=== PATIENT | female | born 1960 | race Caucasian/White ===

== ENCOUNTER 2021-01-01 19:57 | Inpatient (IN) | payer MEDICARE, SELFPAY ==
--- NOTE | ~2021-01-01 | XR_ITS ---
EXAMINATION: XR CHEST CLINICAL INFORMATION: Asthma, wheezing, intermittent shortness of breath. COMPARISON: Chest radiographs 12/21/2008 TECHNIQUE: Frontal view of the chest was obtained. FINDINGS: There is mild subpleural scarring periphery left lower zone with mild tenting lateral diaphragm similar to chest 2009. The lungs are otherwise clear. There is no hyperinflation, airspace consolidation, or effusion. The heart is normal in size. The vascularity is normal. The hilar and mediastinal contours are normal. No acute bony abnormality. XR/XR chest 1V IMPRESSION: No acute intrathoracic disease.
--- NOTE | ~2021-01-01 | CT_ITS ---
EXAMINATION: CT HEAD WITHOUT CONTRAST CLINICAL INFORMATION: Confusion. Prior history TBI COMPARISON: None TECHNIQUE: Contiguous axial imaging was performed from the skull base to vertex without intravenous administration of contrast. Additional 2-D coronal and sagittal reformatted images are generated on the CT workstation and uploaded to PACS. This CT examination was performed using dose optimization techniques as appropriate, variously including the following: *Automated exposure control *Adjustment of mA and/or kV according to patient size (this includes techniques or standardized protocols for targeted exams where dose is matched to indication/reason for exam; i.e. extremities or head) *Use of iterative reconstruction technique DLP: 896 mGy-cm FINDINGS: There is no intracranial hemorrhage, hematoma, or extra-axial fluid collection. The ventricles are normal in size. There is no hydrocephalus, edema, or mass effect. The florez-white matter differentiation appears symmetric. There are some mildly accentuated cortical sulci without focal atrophy. There is no visible acute territorial infarct or mass lesion. The calvarium appears intact. There is no pneumocephalus or orbital emphysema. The visualized sinuses and middle ears and mastoid air cells show no significant mucosal thickening. There are no air-fluid levels. There are some opacified lower left mastoid air cells. No bony destructive process or sclerosis. There are degenerative changes involving both temporomandibular joints. CT/CT head/brain wo con IMPRESSION: No acute intracranial abnormality.
[2021-01-01 20:32] VITALS: BP 123/84; PULSE 96; RESP 18; TEMP 36.6; BMI 41.5
[2021-01-01 21:00] LABS: MANUAL DIFF FLAG NO
[2021-01-01 21:03] LABS: Basophils Percent Auto 0.3 % (0-2); Eosinophils Percent Auto 0.4 % (0-4); Hematocrit 43.1 % (37-47); Hemoglobin 14.5 g/dl (12.0-16.0); Imm Gran Abs Auto 0.02 X10*3/uL (0.00-0.03); Imm Gran Pct Auto 0.2 % (0.0-0.4); Lymphocytes Absolute Auto 1.6 X10*3/uL (1.2-4.9); Lymphocytes Percent Auto 14.6 % (20-40); Mean Corpuscular HGB Conc 33.6 g/dl (31.0-35.0); Mean Corpuscular Hemoglobin 30.5 pg (27.0-33.0); Mean Corpuscular Volume 90.7 fL (80-98); Monocytes Absolute Auto 0.7 X10*3/uL (0.1-1.2); Monocytes Percent Auto 6.3 % (2-11); Neutrophils Absolute Auto 8.5 X10*3/uL (2.0-8.3); Neutrophils Percent Auto 78.2 % (45-73); Platelet Count 194 X10*3/uL (160-400); Red Blood Count 4.75 X10*6/uL (4.20-5.50); White Blood Count 10.8 X10*3/uL (4.8-10.8)
[2021-01-01 21:23] LABS: Anion Gap 14 (12-20); Blood Urea Nitrogen 13 mg/dL (9-16); Calcium 9.2 mg/dL (8.4-10.2); Carbon Dioxide 29 mmol/L (22-29); Chloride 101 mmol/L (96-108); Creatinine Clr Calc Pharmacy 93.8; Estimated Glomerular Filt Rate > 60; Glucose Random 127 mg/dL (60-115); Potassium 3.8 mmol/L (3.3-5.1); Sodium 140 mmol/L (135-145)
--- NOTE | 2021-01-01 21:32 | ED_ITS ---
HPI - Psych General Chief Complaint: Psychiatric Symptoms Stated Complaint: si Time Seen by Provider: 01/01/21 21:29 Source: patient Mode of arrival: ambulatory Limitations: no limitations History of Present Illness HPI Narrative: Patient comes emergency room complaining of suicidal ideation. Patient has no specific plan. Patient states that all her depression/SI is due to being to see her grandchildren. Patient also states that a few days ago, she lashed out at her grandchildren, her daughter told the patient that she does not ever want to see her again. Patient also stressed because she was given a short term notice to move out of her apartment. Patient states she is compliant with her medication for bipolar disorder, PTSD and generalized anxiety. Patient denies any medical problems at this time. Related Data Home Medications Medication Instructions Recorded Confirmed fluoxetine 1 cap PO DAILY 01/01/21 01/01/21 folic acid 1 tab PO DAILY 01/01/21 01/01/21 gabapentin 600 mg PO BEDTIME 01/01/21 01/01/21 glimepiride 1 tab PO QAM 01/01/21 01/01/21 ibuprofen 1 tab PO Q6H PRN 01/01/21 01/01/21 lisinopril 1 tab PO DAILY 01/01/21 01/01/21 omeprazole 1 cap PO DAILY 01/01/21 01/01/21 prazosin 1 cap PO BID 01/01/21 01/01/21 simvastatin 1 tab PO BEDTIME 01/01/21 01/01/21 trazodone 1 tab PO BEDTIME 01/01/21 01/01/21 Allergies Allergy/AdvReac Type Severity Reaction Status Date / Time No Known Allergies Allergy Unverified 04/19/20 16:25 Review of Systems Review of Systems: Constitutional : No Weight loss, No Fever, No Chills, No Night Sweats, No Fatigue, No Malaise ENT/Mouth : No Hearing loss, No Ear Pain, No Nasal Congestion, No Sinus Pain, No Hoarseness, No sore throat, No Rhinorrhea, No Swallowing Difficulty Eyes: No Eye Pain, No Swelling, No Redness, No Foreign Body, No Discharge, No Vision Changes Cardiovascular : No Chest Pain, No SOB, No Dyspnea on Exertion, No Orthopnea, No Edema, No Palpitations Respiratory : No Cough, No Sputum, No Wheezing, No Smoke Exposure, No Dyspnea Gastrointestinal : No Nausea, No Vomiting, No Diarrhea, No Constipation, No abdominal Pain, No Hematochezia, No Melena Genitourinary : no irregular bleeding, No Dysuria, No Urinary Frequency, No Hematuria, No Urinary Incontinence, No Urgency, No Flank Pain, No Urinary Flow Changes, No Hesitancy Musculoskeletal : No joint pain, No Myalgias, No Joint Swelling Skin : No Skin Lesions, No rash Neuro : No Weakness, No Numbness, No Paresthesias, No Loss of Consciousness, No Dizziness, No Headache Psych : No acute anxiety, complaining of depression and suicidal ideation, Nose homicidal ideation Heme/Lymph: No Bruising, No Bleeding,No Lymphadenopathy Endocrine : No Polyuria, No Polydipsia, No Temperature Intolerance [facility] Past Medical History Medical History Anxiety Asthma Depression IBS (irritable bowel syndrome) Marijuana abuse Obesity Suicidal ideation Social History Social History Advance Directives: No Advance Directives Information Provided: Yes Guardian: No Patient : No Physical Exam Vital Signs: Vital Signs: Last Vital Signs Temp 97.8 F 01/01/21 20:32 Pulse 96 01/01/21 20:32 Resp 18 01/01/21 20:32 BP 123/84 01/01/21 20:32 Body Mass Index 41.5 Appearance: Alert. Oriented X3. No acute distress. Eyes: Pupils equal, round and reactive to light. ENT: Pharynx normal. Neck: Normal inspection. Neck supple. No lymph nodes noted. No crepitus CVS: Normal heart rate and rhythm. Respiratory: No respiratory distress. Breath sounds normal. No Wheezing. No rales Abdomen: Soft and nontender. No rigidity. No distention. Skin: Skin warm and dry. Normal skin color. Normal skin turgor. Extremities: No lower extremity edema. No lower extremity edema. No Lacerations. No Rash Neuro: Oriented X 3. No motor deficit. No sensory deficit. Moving all extermities. No slurred speech. Course Course Course Narrative: Patient was evaluated by the care team. Patient is being admitted to Patient is being admitted to in [address] Headley [facility] - Psych Lab Data Result diagrams: 01/01/21 20:56 01/01/21 20:56 Labs: Lab Results 01/01/21 01/01/21 01/01/21 Range/Units 20:56 20:56 20:56 WBC 10.8 (4.8-10.8) X10*3/uL RBC 4.75 (4.20-5.50) X10*6/uL Hgb 14.5 (12.0-16.0) g/dl Hct 43.1 (37-47) % MCV 90.7 (80-98) fL MCH 30.5 (27.0-33.0) pg MCHC 33.6 (31.0-35.0) g/dl RDW 14.0 (11.0-16.0) % Plt Count 194 (160-400) X10*3/uL MPV 10.0 (9.4-12.3) fL Immature Gran % (Auto) 0.2 (0.0-0.4) % Neut % (Auto) 78.2 H (45-73) % Lymph % (Auto) 14.6 L (20-40) % [place] % (Auto) 6.3 (2-11) % Eos % (Auto) 0.4 (0-4) % Baso % (Auto) 0.3 (0-2) % Lymph # (Auto) 1.6 (1.2-4.9) X10*3/uL [place] # (Auto) 0.7 (0.1-1.2) X10*3/uL Eos # (Auto) 0.0 (0.0-0.4) X10*3/uL Baso # (Auto) 0.0 (0.0-0.2) X10*3/uL Abs Immat Gran (auto) 0.02 (0.00-0.03) X10*3/uL Absolute Neuts (auto) 8.5 H (2.0-8.3) X10*3/uL Absolute Nucleated RBC 0.000 (0.0-0.012) X10*3/uL Nucleated RBC % (auto) 0.0 (0.0-0.2) /100WBC Sodium 140 (135-145) mmol/L Potassium 3.8 (3.3-5.1) mmol/L Chloride 101 (96-108) mmol/L Carbon Dioxide 29 (22-29) mmol/L Anion Gap 14 (12-20) BUN 13 (9-16) mg/dL Creatinine 0.79 (0.5-1.4) mg/dL Estim Creat Clear Calc 93.8 Estimated GFR > 60 Random Glucose 127 H (60-115) mg/dL Calcium 9.2 (8.4-10.2) mg/dL COVID-19 (LONG) Negative (Negative) COVID-19 Clin Com See Note Discharge Plan Discharge Clinical Impression: Depression, Bipolar disorder, unspecified Patient Disposition: Admitted As Inpatient
[2021-01-01 21:45] LABS: COVID-19 Test Negative (Negative)
--- NOTE | 2021-01-01 23:49 | PC.NURSE ---
JOSE GUADALUPEN faxed/called/spoke with Josephine/confirmed receipt of referral/ETA in the morning
[2021-01-02] VITALS (8 sets, daily range): BP systolic 104–153; BP diastolic 58–91; PULSE 72–86; RESP 16–18; TEMP 36.1–36.8; O2SAT 95–96; BMI 41.5
--- NOTE | 2021-01-02 | ECG_ITS ---
Test Reason : MED CLEARANCE Blood Pressure : / mmHG Vent. Rate : 072 BPM Atrial Rate : 072 BPM P-R Int : 132 ms QRS Dur : 082 ms QT Int : 392 ms P-R-T Axes : 052 005 037 degrees QTc Int : 429 ms Normal sinus rhythm Normal ECG When compared with ECG of 03-APR-2010 13:37, No significant change was found Referred By: Abiola España Electronically Signed By:Rasheed Selby
[2021-01-02] MEDS: Ibuprofen 800 MG TABLET PO ×2 (00:48→08:49)
[2021-01-02] MEDS: traZODone HCL 100 MG TABLET PO ×2 (00:48→20:59)
[2021-01-02] MEDS: LORazepam 1 MG TABLET 2 MG PO (00:48)
--- NOTE | 2021-01-02 00:52 | PC.NURSE ---
Patient reported anxiety 5/10 and racing thought, patient is fidgety, M5 called and notified that patient will be not transferred soon due to heavy admission, M5ok'ed to have patient medicated, Ativan 2 mg tablet, Ibuprofen 800 mg, and Trazodone 100 mg administered as ordered, pending effect, will continue to monitor.
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
[2021-01-02] MEDS: FLUoxetine HCl 20 MG CAPSULE 40 MG PO (08:12)
[2021-01-02] MEDS: Omeprazole 40 MG CAPSULE.DR PO (08:12)
[2021-01-02] MEDS: Folic Acid 1 MG TABLET PO (08:13)
[2021-01-02] MEDS: Prazosin HCL 1 MG CAPSULE PO ×2 (08:48→20:57)
[2021-01-02] MEDS: lisinopriL 20 MG TABLET PO (08:49)
[2021-01-02 09:03] LABS: Estimated Average Glucose 146 mg/dL; Hemoglobin A1c % 6.7 %
[2021-01-02 09:31] LABS: Cholesterol 168 mg/dL; HDL Cholesterol 49 mg/dL; LDL Cholesterol Calculated 86 mg/dl; Triglycerides 168 mg/dL
[2021-01-02 09:55] LABS: Free T4 (Free Thyroxine) 0.83 ng/dL (0.71-1.85); Thyroid Stimulating Hormone 2.53 uIU/mL (0.32-4.0)
[2021-01-02 10:11] LABS: Folate 17.7 ng/mL (> or = 4.0); Vitamin B12 355 pg/mL (200-900)
[2021-01-02] MEDS: LORazepam 0.5 MG TABLET PO ×2 (14:19→20:58)
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
[2021-01-02] MEDS: Gabapentin 300 MG CAPSULE 600 MG PO (20:57)
[2021-01-02] MEDS: Divalproex Sodium ER 500 MG TAB.ER.24H PO (20:58)
[2021-01-02] MEDS: Atorvastatin Calcium 10 MG TABLET PO (20:58)
[2021-01-02] MEDS: hydrOXYzine HCL 25 MG TABLET PO (21:04)
[2021-01-02 21:21] LABS: Glucose, Whole Blood 173 mg/dL (60-115)
[2021-01-03 06:20] VITALS: BP 132/65; PULSE 70; RESP 18; TEMP 36; O2SAT 94
[2021-01-03 06:42] LABS: Glucose, Whole Blood 142 mg/dL (60-115)
[2021-01-03 09:36] VITALS: BP 130/89; PULSE 84
[2021-01-03] MEDS: Prazosin HCL 1 MG CAPSULE PO ×2 (09:36→20:16)
[2021-01-03 09:37] VITALS: BP 130/89; PULSE 84
[2021-01-03] MEDS: Omeprazole 40 MG CAPSULE.DR PO (09:37)
[2021-01-03] MEDS: lisinopriL 20 MG TABLET PO (09:37)
[2021-01-03] MEDS: Folic Acid 1 MG TABLET PO (09:38)
[2021-01-03] MEDS: FLUoxetine HCl 20 MG CAPSULE 40 MG PO (09:38)
[2021-01-03] MEDS: LORazepam 0.5 MG TABLET PO ×2 (15:01→22:41)
[2021-01-03] MEDS: Acetaminophen 325 MG TABLET 650 MG PO (15:03)
[2021-01-03 16:37] LABS: Glucose, Whole Blood 135 mg/dL (60-115)
[2021-01-03 18:00] VITALS: BP 135/99; PULSE 92; TEMP 36.3
--- NOTE | 2021-01-03 19:18 | HO.PSYCHPN ---
Subjective Subjective Date of Service: 01/03/21 Reason For Visit: Bipolar Disorder; PTSD Subjective Notes: Conditional Voluntary Healthcare Proxy: No Guardianship: No Medical Problems Affecting Mental Status: Yes (?cannabis over use) Interim History: Diagnostics are WNL. Labs, CAT, CXR. Provided literature to pt regarding cognitive effects of cannabis use along with behavioral DBT programming. Pt reports feeling tired after her first dose of Depakote but calmer Medication Compliance: Yes Side effects from medications: Yes (tired) Attending Groups: Yes Review of Systems Review of Systems Yes all other systems are reviewed and are negative Reports behavioral changes and Reports confusion Psychiatric: Reports anxiety, Reports behavioral changes, Reports confusion, Reports depression, Reports difficulty concentrating, Reports hopelessness, Reports irritability, Reports mood swings, Reports panic attacks and Reports suicidal ideation Mental Status Exam Mental Status Exam Patient Appearance: Appropriate Patient Orientation: Person, Place, Time and Situation Level of Consciousness: Alert Patient Behavior: Appropriate, Talkative, Cooperative and Crying Mood Description: Depressed Affect Description: Flat Patient Cognition Impaired: No Ability to Follow Directions: Good Speech Pattern: Clear and Appropriate Memory Description: Episodic Impaired Hallucinations: None Delusions: Not Present Thought Process: Rumination Thought Content: positive for Perseveration and positive for Suicidal Ideation Depressive Symptoms: Increased Anxiety, Diff. Making Decisions, Increased Irritability, Crying Spells, Hopelessness, Isolating-Friends/Family, Feelings of Guilt, Unhappiness, Thoughts of /Suicide, Low Self Esteem, Loss of Energy and Difficulty Concentrating Judgement: Fair Diagnostics Vital Signs (24Hr): Vital Signs - 24 hr 01/02/21 20:57 01/02/21 21:45 01/02/21 23:10 Temperature 98.1 F Pulse Rate 86 86 75 Respiratory Rate Blood Pressure 153/90 H 153/90 H 106/58 L Pulse Oximetry 01/03/21 06:20 01/03/21 09:36 01/03/21 09:37 Temperature 96.8 F Pulse Rate 70 84 84 Respiratory Rate 18 Blood Pressure 132/65 130/89 130/89 Pulse Oximetry 94 Body Mass Index 41.5 Labs Results: 01/01/21 20:56 01/01/21 20:56 Labs: Laboratory Results - last 48 hr 01/01/21 01/01/21 01/01/21 20:56 20:56 20:56 WBC 10.8 RBC 4.75 Hgb 14.5 Hct 43.1 MCV 90.7 MCH 30.5 MCHC 33.6 RDW 14.0 Plt Count 194 MPV 10.0 Immature Gran % (Auto) 0.2 Neut % (Auto) 78.2 H Lymph % (Auto) 14.6 L [place] % (Auto) 6.3 Eos % (Auto) 0.4 Baso % (Auto) 0.3 Lymph # (Auto) 1.6 [place] # (Auto) 0.7 Eos # (Auto) 0.0 Baso # (Auto) 0.0 Abs Immat Gran (auto) 0.02 Absolute Neuts (auto) 8.5 H Absolute Nucleated RBC 0.000 Nucleated RBC % (auto) 0.0 Sodium 140 Potassium 3.8 Chloride 101 Carbon Dioxide 29 Anion Gap 14 BUN 13 Creatinine 0.79 Estim Creat Clear Calc 93.8 Estimated GFR > 60 POC Glucose Random Glucose 127 H Estimat Average Glucose Hemoglobin A1c % Calcium 9.2 Triglycerides Cholesterol LDL Cholesterol, Calc HDL Cholesterol Vitamin B12 Folate TSH Free T4 COVID-19 (LONG) Negative COVID-19 [employer] See Note 01/02/21 01/02/21 01/02/21 08:30 08:30 08:30 WBC RBC Hgb Hct MCV MCH MCHC RDW Plt Count MPV Immature Gran % (Auto) Neut % (Auto) Lymph % (Auto) [place] % (Auto) Eos % (Auto) Baso % (Auto) Lymph # (Auto) [place] # (Auto) Eos # (Auto) Baso # (Auto) Abs Immat Gran (auto) Absolute Neuts (auto) Absolute Nucleated RBC Nucleated RBC % (auto) Sodium Potassium Chloride Carbon Dioxide Anion Gap BUN Creatinine Estim Creat Clear Calc Estimated GFR POC Glucose Random Glucose Estimat Average Glucose 146 Hemoglobin A1c % 6.7 Calcium Triglycerides 168 Cholesterol 168 LDL Cholesterol, Calc 86 HDL Cholesterol 49 Vitamin B12 355 Folate 17.7 TSH 2.53 Free T4 0.83 COVID-19 (LONG) [email or web address] 01/02/21 01/03/21 01/03/21 21:15 06:30 16:33 WBC RBC Hgb Hct MCV MCH MCHC RDW Plt Count MPV Immature Gran % (Auto) Neut % (Auto) Lymph % (Auto) [place] % (Auto) Eos % (Auto) Baso % (Auto) Lymph # (Auto) [place] # (Auto) Eos # (Auto) Baso # (Auto) Abs Immat Gran (auto) Absolute Neuts (auto) Absolute Nucleated RBC Nucleated RBC % (auto) Sodium Potassium Chloride Carbon Dioxide Anion Gap BUN Creatinine Estim Creat Clear Calc Estimated GFR POC Glucose 173 H 142 H 135 H Random Glucose Estimat Average Glucose Hemoglobin A1c % Calcium Triglycerides Cholesterol LDL Cholesterol, Calc HDL Cholesterol Vitamin B12 Folate TSH Free T4 COVID-19 (LONG) COVID-19 Clin Com Imaging Radiology Impressions: ITS Impressions Chest X-Ray 01/03/21 10:00 IMPRESSION: No acute intrathoracic disease. Head CT 01/03/21 14:52 IMPRESSION: No acute intracranial abnormality. Medications Medications Current Medications Generic Name Dose Route Start Last Admin Trade Name Freq PRN Reason Stop Dose Admin Acetaminophen 650 mg 01/01/21 23:35 01/03/21 15:03 Acetaminophen 325 Mg Tablet PO 650 mg Q6H PRN Administration Headache/Pain Mild Scale (1-3) Al Hydroxide/Mg Hydroxide 30 ml 01/01/21 23:35 Magnesium Hydrox/Alum Hydrox 30 Ml Oral.Susp PO Q6H PRN Heartburn/Nausea Atorvastatin Calcium 10 mg 01/02/21 21:00 01/02/21 20:58 Atorvastatin Calcium 10 Mg Tablet PO 10 mg BEDTIME AMY Administration Divalproex Sodium 500 mg 01/02/21 21:00 01/02/21 20:58 Divalproex Sodium Er 500 Mg Tab.Er.24h PO 500 mg BEDTIME AMY Administration Fluoxetine HCl 40 mg 01/02/21 09:00 01/03/21 09:38 Fluoxetine Hcl 20 Mg Capsule PO 40 mg DAILY AMY Administration Folic Acid 1 mg 01/02/21 09:00 01/03/21 09:38 Folic Acid 1 Mg Tablet PO 1 mg DAILY AMY Administration Gabapentin 600 mg 01/02/21 21:00 01/02/21 20:57 Gabapentin 300 Mg Capsule PO 600 mg BEDTIME AMY Administration Glipizide 5 mg 01/04/21 09:00 Glipizide 5 Mg Tablet PO DAILY AMY Hydroxyzine HCl 25 mg 01/01/21 23:35 01/02/21 21:04 Hydroxyzine Hcl 25 Mg Tablet PO 25 mg BEDTIME PRN Administration Anxiety Ibuprofen 800 mg 01/01/21 23:31 01/02/21 08:49 Ibuprofen 800 Mg Tablet PO 800 mg Q6H PRN Administration pain Lisinopril 20 mg 01/02/21 09:00 01/03/21 09:37 Lisinopril 20 Mg Tablet PO 20 mg DAILY AMY Administration Protocol Lorazepam 0.5 mg 01/01/21 23:45 01/03/21 15:01 Lorazepam 0.5 Mg Tablet PO 0.5 mg Q6H PRN Administration Anxiety Magnesium Hydroxide 30 ml 01/01/21 23:35 Milk Of Magnesia 30 Ml Oral.Susp PO DAILY PRN Constipation Omeprazole 40 mg 01/02/21 09:00 01/03/21 09:37 Omeprazole 40 Mg Capsule.Dr PO 40 mg DAILY AMY Administration Prazosin HCl 1 mg 01/02/21 09:00 01/03/21 09:36 Prazosin Hcl 1 Mg Capsule PO 1 mg BID AMY Administration Protocol Trazodone HCl 100 mg 01/02/21 21:00 01/02/21 20:59 Trazodone Hcl 100 Mg Tablet PO 100 mg BEDTIME AMY Administration Allergies Allergies Allergy/AdvReac Type Severity Reaction Status Date / Time No Known Allergies Allergy Unverified 04/19/20 16:25 Assessment & Plan Assessment & Plan (1) Bipolar I disorder: Status: Acute Code(s): F31.9 - Bipolar disorder, unspecified Assessment and Plan: Mirna is a 60 yo female with a history of mood lability, depression and excessive cannabis abuse admitted for exacerbation of depression, lability and emotional dysregulation. She also reports confusion at times and difficulty with task completion. Thus far, medical eval is inconclusive. 1.Continue Depakote ER 500 mg HS 2. CXR WNL 3.Re-establish CPAP 4. CAT WNL (2) Cannabis use disorder, severe, dependence: Status: Acute Code(s): F12.20 - Cannabis dependence, uncomplicated Greater than 50% of the session was spent on counseling and/or coordination of care Reason for contiued inpatient stay Substantial Risk for: harm to self, inability to function and rapid decompensation
[2021-01-03 20:16] VITALS: BP 135/99; PULSE 92
[2021-01-03] MEDS: Atorvastatin Calcium 10 MG TABLET PO (20:16)
[2021-01-03] MEDS: Gabapentin 300 MG CAPSULE 600 MG PO (20:17)
[2021-01-03] MEDS: Divalproex Sodium ER 500 MG TAB.ER.24H PO (20:17)
[2021-01-03] MEDS: traZODone HCL 100 MG TABLET PO (20:17)
[2021-01-04 06:35] VITALS: BP 112/72; PULSE 75; RESP 18; TEMP 36.3; O2SAT 95
[2021-01-04 06:50] LABS: Glucose, Whole Blood 145 mg/dL (60-115)
[2021-01-04 08:30] VITALS: BP 131/77; PULSE 80; RESP 18; TEMP 36.6
[2021-01-04 08:49] VITALS: BP 131/79; PULSE 80
[2021-01-04] MEDS: lisinopriL 20 MG TABLET PO (08:49)
[2021-01-04] MEDS: Omeprazole 40 MG CAPSULE.DR PO (08:49)
[2021-01-04] MEDS: FLUoxetine HCl 20 MG CAPSULE 40 MG PO (08:50)
[2021-01-04 08:51] VITALS: BP 131/79; PULSE 80
[2021-01-04] MEDS: Prazosin HCL 1 MG CAPSULE PO ×2 (08:51→20:15)
[2021-01-04] MEDS: Folic Acid 1 MG TABLET PO (08:52)
[2021-01-04] MEDS: glipiZIDE 5 MG TABLET PO (08:52)
[2021-01-04] MEDS: LORazepam 0.5 MG TABLET PO ×2 (10:15→21:29)
--- NOTE | 2021-01-04 15:54 | HO.PSYCHPN ---
Subjective Subjective Date of Service: 01/04/21 Reason For Visit: Bipolar Disorder; PTSD Subjective Notes: Conditional Voluntary Healthcare Proxy: No Guardianship: No Medical Problems Affecting Mental Status: Yes (Back Pain) Interim History: Difficult day-tearful, angry, +SI, threatening, agitated, refusing to eat. Friend called pt to let her know she attempted contact with family and they want nothing to do with me . Discussed family asking pt to get help and encouraged pt to allow conflicted issues to settle before she attempts to make further contact. Pt discussed stressors-reports she needs assist with housing, application for [place] [employer] as she will be unable to continue to live with her aunt. 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 Pt reports feeling worse since the news of family rejection. Denies medication SE. Medication Compliance: Yes Side effects from medications: No Attending Groups: No Review of Systems Musculoskeletal: Reports back pain (uses Flexoril at home) Reports behavioral changes Psychiatric: Reports anxiety, Reports behavioral changes, Reports depression, Reports difficulty concentrating, Reports hopelessness, Reports irritability, Reports anhedonia, Reports mood swings and Reports suicidal ideation Mental Status Exam Mental Status Exam Patient Appearance: Fatigued and Disheveled Patient Orientation: Person, Place, Time and Situation Level of Consciousness: Awake, Restless and Alert Patient Behavior: Dependent, Talkative, Cooperative, Anxious, Fearful, Combative, Distractible, Good Eye Contact and Crying Mood Description: Withdrawn, Constricted, Fearful, Hostile, Anxious, Labile, Angry, Sad and Apprehensive Affect Description: Labile and Flat Patient Cognition Impaired: No Ability to Follow Directions: Good Speech Pattern: Perseverating, Spontaneous Speech and Soft-Spoken Memory Description: Intact Hallucinations: None Delusions: Not Present Thought Process: Racing, Distracted and Rumination Thought Content: positive for Racing, positive for [place], positive for Obsessional Thoughts, positive for Circumstantial, positive for Perseveration, positive for Preoccupation and positive for Suicidal Ideation Depressive Symptoms: Increased Anxiety, Diff. Making Decisions, Muscle Tension, Increased Irritability, Changes in Appetite, Muscle Pain, Crying Spells, Sleeping More Than Usual, Loss of Int. in Activity, Feelings of Worthlessness, Significant Weight Gain, Hopelessness, Isolating-Friends/Family, Feelings of Guilt, Unhappiness, Increased Fatigue, Thoughts of /Suicide, Low Self Esteem, Loss of Energy, Difficulty Concentrating and Back Pain Abnormal Motor Activity Signs and Symptoms: Agitation and Restlessness Judgement: Fair Diagnostics Vital Signs (24Hr): Vital Signs - 24 hr 01/03/21 18:00 01/03/21 20:16 01/04/21 06:35 Temperature 97.4 F 97.4 F Pulse Rate 92 92 75 Respiratory Rate 18 Blood Pressure 135/99 H 135/99 H 112/72 Pulse Oximetry 95 01/04/21 08:30 01/04/21 08:49 01/04/21 08:51 Temperature 97.9 F Pulse Rate 80 80 80 Respiratory Rate 18 Blood Pressure 131/77 131/79 131/79 Pulse Oximetry Body Mass Index 41.5 Labs Results: 01/01/21 20:56 01/01/21 20:56 Labs: Laboratory Results - last 48 hr 01/02/21 01/03/21 01/03/21 21:15 06:30 16:33 POC Glucose 173 H 142 H 135 H 01/04/21 06:38 POC Glucose 145 H Imaging Radiology Impressions: ITS Impressions Chest X-Ray 01/03/21 10:00 IMPRESSION: No acute intrathoracic disease. Head CT 01/03/21 14:52 IMPRESSION: No acute intracranial abnormality. Medications Medications Current Medications Generic Name Dose Route Start Last Admin Trade Name Freq PRN Reason Stop Dose Admin Acetaminophen 650 mg 01/01/21 23:35 01/03/21 15:03 Acetaminophen 325 Mg Tablet PO 650 mg Q6H PRN Administration Headache/Pain Mild Scale (1-3) Al Hydroxide/Mg Hydroxide 30 ml 01/01/21 23:35 Magnesium Hydrox/Alum Hydrox 30 Ml Oral.Susp PO Q6H PRN Heartburn/Nausea Atorvastatin Calcium 10 mg 01/02/21 21:00 01/03/21 20:16 Atorvastatin Calcium 10 Mg Tablet PO 10 mg BEDTIME AMY Administration Cyclobenzaprine HCl 5 mg 01/04/21 15:52 Cyclobenzaprine Hcl 5 Mg Tablet PO TID PRN Back Pain Divalproex Sodium 500 mg 01/02/21 21:00 01/03/21 20:17 Divalproex Sodium Er 500 Mg Tab.Er.24h PO 500 mg BEDTIME AMY Administration Fluoxetine HCl 40 mg 01/02/21 09:00 01/04/21 08:50 Fluoxetine Hcl 20 Mg Capsule PO 40 mg DAILY AMY Administration Folic Acid 1 mg 01/02/21 09:00 01/04/21 08:52 Folic Acid 1 Mg Tablet PO 1 mg DAILY AMY Administration Gabapentin 600 mg 01/02/21 21:00 01/03/21 20:17 Gabapentin 300 Mg Capsule PO 600 mg BEDTIME AMY Administration Glipizide 5 mg 01/04/21 09:00 01/04/21 08:52 Glipizide 5 Mg Tablet PO 5 mg DAILY AMY Administration Hydroxyzine HCl 25 mg 01/01/21 23:35 01/02/21 21:04 Hydroxyzine Hcl 25 Mg Tablet PO 25 mg BEDTIME PRN Administration Anxiety Ibuprofen 800 mg 01/01/21 23:31 01/02/21 08:49 Ibuprofen 800 Mg Tablet PO 800 mg Q6H PRN Administration pain Lisinopril 20 mg 01/02/21 09:00 01/04/21 08:49 Lisinopril 20 Mg Tablet PO 20 mg DAILY AMY Administration Protocol Lorazepam 0.5 mg 01/01/21 23:45 01/04/21 10:15 Lorazepam 0.5 Mg Tablet PO 0.5 mg Q6H PRN Administration Anxiety Magnesium Hydroxide 30 ml 01/01/21 23:35 Milk Of Magnesia 30 Ml Oral.Susp PO DAILY PRN Constipation Omeprazole 40 mg 01/02/21 09:00 01/04/21 08:49 Omeprazole 40 Mg Capsule.Dr PO 40 mg DAILY AMY Administration Prazosin HCl 1 mg 01/02/21 09:00 01/04/21 08:51 Prazosin Hcl 1 Mg Capsule PO 1 mg BID AMY Administration Protocol Trazodone HCl 100 mg 01/02/21 21:00 01/03/21 20:17 Trazodone Hcl 100 Mg Tablet PO 100 mg BEDTIME AMY Administration Allergies Allergies Allergy/AdvReac Type Severity Reaction Status Date / Time No Known Allergies Allergy Unverified 04/19/20 16:25 Assessment & Plan Assessment & Plan (1) Bipolar I disorder: Status: Acute Code(s): F31.9 - Bipolar disorder, unspecified Assessment and Plan: Mirna is a 60 yo female with a history of mood lability, depression and excessive cannabis abuse admitted for exacerbation of depression, lability and emotional dysregulation. She also reports confusion at times and difficulty with task completion. Thus far, medical eval is WNL. Today, in response to being told by a friend that her family wants nothing to do with me , she has become more labile, threatening suicide, refusing to eat and has taken to her bed. She was able to process some of these feelings today and we were able to target some interventions. Our immediate goal is mood stabilization and suicidality mgt. 1.Continue Depakote ER 500 mg HS. 2. Olanzapine 5 mg HS for mood, sx of dysphoric jasno, racing thoughts mgt. 3. Gabapentin 100 mg tid-trial to assist in withdrawal of cannibis ~45 year hx. 4. [place] 300 mg bid-mgt of intense SI-possibly a component of a borderline personality organization presentation. (2) Cannabis use disorder, severe, dependence: Status: Acute Code(s): F12.20 - Cannabis dependence, uncomplicated Assessment and Plan: Gabapentin 100 mg tid trial. Pt is interested in a 30 day program for assistance in completely stopping cannabis Greater than 50% of the session was spent on counseling and/or coordination of care Reason for contiued inpatient stay Substantial Risk for: harm to self, inability to function and rapid decompensation
[2021-01-04] MEDS: Cyclobenzaprine HCl 5 MG TABLET PO (16:09)
[2021-01-04 16:42] LABS: Glucose, Whole Blood 115 mg/dL (60-115)
[2021-01-04 18:00] VITALS: BP 154/87; PULSE 94; TEMP 36.4
[2021-01-04] MEDS: Atorvastatin Calcium 10 MG TABLET PO (20:14)
[2021-01-04 20:15] VITALS: BP 154/87; PULSE 94
[2021-01-04] MEDS: Divalproex Sodium ER 500 MG TAB.ER.24H PO (20:18)
[2021-01-04] MEDS: OLANZapine 5 MG TABLET PO (20:18)
[2021-01-04] MEDS: Lithium Carbonate 300 MG TABLET PO (20:18)
[2021-01-04] MEDS: traZODone HCL 100 MG TABLET PO (20:18)
[2021-01-04] MEDS: Gabapentin 100 MG CAPSULE PO (20:19)
[2021-01-04] MEDS: Gabapentin 300 MG CAPSULE 600 MG PO (20:19)
[2021-01-05] MEDS: LORazepam 0.5 MG TABLET PO ×2 (14:22→20:46)
[2021-01-05] MEDS: Gabapentin 100 MG CAPSULE PO ×2 (14:22→20:43)
[2021-01-05 16:25] LABS: Glucose, Whole Blood 161 mg/dL (60-115)
[2021-01-05 18:00] VITALS: BP 121/75; PULSE 80; TEMP 36.3
--- NOTE | 2021-01-05 20:27 | HO.PSYCHPN ---
Subjective Subjective Date of Service: 01/05/21 Reason For Visit: Bipolar Disorder; PTSD Subjective Notes: Conditional Voluntary Healthcare Proxy: No Guardianship: No Medical Problems Affecting Mental Status: No Interim History: Subtle improvement, increased participation in milieu, however remains significantly depressed with SI. Medication Compliance: Yes Side effects from medications: Yes (some increase in a.m. sedation) Attending Groups: Intermittent Review of Systems Reports behavioral changes Psychiatric: Reports anxiety, Reports behavioral changes, Reports depression, Reports difficulty concentrating, Reports hopelessness, Reports irritability, Reports mood swings and Reports suicidal ideation Mental Status Exam Mental Status Exam Patient Appearance: Appropriate Patient Orientation: Person, Place, Time and Situation Level of Consciousness: Alert Patient Behavior: Appropriate and Cooperative Mood Description: Labile Affect Description: Labile Patient Cognition Impaired: No Ability to Follow Directions: Good Speech Pattern: Perseverating and Spontaneous Speech Memory Description: Intact Hallucinations: None Delusions: Not Present Thought Process: Intact Thought Content: positive for Intact, positive for Circumstantial and positive for Suicidal Ideation Depressive Symptoms: Increased Anxiety, Diff. Making Decisions, Increased Irritability, Loss of Int. in Activity, Feelings of Worthlessness, Significant Weight Gain, Hopelessness, Isolating-Friends/Family, Unhappiness, Thoughts of /Suicide, Loss of Energy and Difficulty Concentrating Judgement: Fair Diagnostics Vital Signs (24Hr): Body Mass Index 41.5 Labs Results: 01/01/21 20:56 01/01/21 20:56 Labs: Laboratory Results - last 48 hr 01/04/21 01/04/21 01/05/21 06:38 16:31 16:18 POC Glucose 145 H 115 161 H Imaging Radiology Impressions: ITS Impressions Chest X-Ray 01/03/21 10:00 IMPRESSION: No acute intrathoracic disease. Head CT 01/03/21 14:52 IMPRESSION: No acute intracranial abnormality. Medications Medications Current Medications Generic Name Dose Route Start Last Admin Trade Name Freq PRN Reason Stop Dose Admin Acetaminophen 650 mg 01/01/21 23:35 01/03/21 15:03 Acetaminophen 325 Mg Tablet PO 650 mg Q6H PRN Administration Headache/Pain Mild Scale (1-3) Al Hydroxide/Mg Hydroxide 30 ml 01/01/21 23:35 Magnesium Hydrox/Alum Hydrox 30 Ml Oral.Susp PO Q6H PRN Heartburn/Nausea Atorvastatin Calcium 10 mg 01/02/21 21:00 01/04/21 20:14 Atorvastatin Calcium 10 Mg Tablet PO 10 mg BEDTIME AMY Administration Cyclobenzaprine HCl 5 mg 01/04/21 15:52 01/04/21 16:09 Cyclobenzaprine Hcl 5 Mg Tablet PO 5 mg TID PRN Administration Back Pain Divalproex Sodium 500 mg 01/02/21 21:00 01/04/21 20:18 Divalproex Sodium Er 500 Mg Tab.Er.24h PO 500 mg BEDTIME AMY Administration Fluoxetine HCl 40 mg 01/02/21 09:00 01/05/21 09:02 Fluoxetine Hcl 20 Mg Capsule PO Not Given DAILY AMY Folic Acid 1 mg 01/02/21 09:00 01/05/21 09:02 Folic Acid 1 Mg Tablet PO Not Given DAILY AMY Gabapentin 600 mg 01/02/21 21:00 01/04/21 20:19 Gabapentin 300 Mg Capsule PO 600 mg BEDTIME AMY Administration Gabapentin 100 mg 01/04/21 21:00 01/05/21 14:22 Gabapentin 100 Mg Capsule PO 100 mg TID AMY Administration Glipizide 5 mg 01/04/21 09:00 01/05/21 09:03 Glipizide 5 Mg Tablet PO Not Given DAILY AMY Hydroxyzine HCl 25 mg 01/01/21 23:35 01/02/21 21:04 Hydroxyzine Hcl 25 Mg Tablet PO 25 mg BEDTIME PRN Administration Anxiety Ibuprofen 800 mg 01/01/21 23:31 01/02/21 08:49 Ibuprofen 800 Mg Tablet PO 800 mg Q6H PRN Administration pain Lisinopril 20 mg 01/02/21 09:00 01/05/21 09:03 Lisinopril 20 Mg Tablet PO Not Given DAILY AMY Protocol [place] 300 mg 01/04/21 21:00 01/05/21 09:03 [place] 300 Mg Tablet PO Not Given BID AMY Lorazepam 0.5 mg 01/01/21 23:45 01/05/21 14:22 Lorazepam 0.5 Mg Tablet PO 0.5 mg Q6H PRN Administration Anxiety Magnesium Hydroxide 30 ml 01/01/21 23:35 Milk Of Magnesia 30 Ml Oral.Susp PO DAILY PRN Constipation Olanzapine 5 mg 01/04/21 21:00 01/04/21 20:18 Olanzapine 5 Mg Tablet PO 5 mg BEDTIME AMY Administration Omeprazole 40 mg 01/02/21 09:00 01/05/21 09:03 Omeprazole 40 Mg Capsule. PO Not Given DAILY AMY Prazosin HCl 1 mg 01/02/21 09:00 01/05/21 09:03 Prazosin Hcl 1 Mg Capsule PO Not Given BID [facility] Protocol Trazodone HCl 100 mg 01/02/21 21:00 01/04/21 20:18 Trazodone Hcl 100 Mg Tablet PO 100 mg BEDTIME AMY Administration Allergies Allergies Allergy/AdvReac Type Severity Reaction Status Date / Time No Known Allergies Allergy Unverified 04/19/20 16:25 Assessment & Plan Assessment & Plan (1) Bipolar I disorder: Status: Acute Code(s): F31.9 - Bipolar disorder, unspecified Assessment and Plan: Mirna is a 60 yo female with a history of mood lability, depression and excessive cannabis abuse admitted for exacerbation of depression, lability and emotional dysregulation. She also reports confusion at times and difficulty with task completion. Thus far, medical eval is WNL. Today, in response to being told by a friend that her family wants nothing to do with me , she has become more labile, threatening suicide, refusing to eat and has taken to her bed. She was able to process some of these feelings today and we were able to target some interventions. Our immediate goal is mood stabilization and suicidality mgt. 1.Continue Depakote ER 500 mg HS. 2. Olanzapine 5 mg HS for mood, sx of dysphoric jason, racing thoughts mgt. 3. Gabapentin 100 mg tid-trial to assist in withdrawal of cannibis ~45 year hx. 4. [place] 300 mg bid-mgt of intense SI-possibly a component of a borderline personality organization presentation. 5. 01/05/21- No changes today (2) Cannabis use disorder, severe, dependence: Status: Acute Code(s): F12.20 - Cannabis dependence, uncomplicated Assessment and Plan: Gabapentin 100 mg tid trial. Pt is interested in a 30 day program for assistance in completely stopping cannabis Greater than 50% of the session was spent on counseling and/or coordination of care Reason for contiued inpatient stay Substantial Risk for: harm to self, inability to function and rapid decompensation
[2021-01-05] MEDS: Divalproex Sodium ER 500 MG TAB.ER.24H PO (20:43)
[2021-01-05 20:44] VITALS: BP 121/75; PULSE 80
[2021-01-05] MEDS: Gabapentin 300 MG CAPSULE 600 MG PO (20:44)
[2021-01-05] MEDS: Prazosin HCL 1 MG CAPSULE PO (20:44)
[2021-01-05] MEDS: Atorvastatin Calcium 10 MG TABLET PO (20:45)
[2021-01-05] MEDS: Lithium Carbonate 300 MG TABLET PO (20:45)
[2021-01-05] MEDS: traZODone HCL 100 MG TABLET PO (20:46)
[2021-01-05] MEDS: OLANZapine 5 MG TABLET PO (20:46)
[2021-01-06 06:00] VITALS: BP 124/61; PULSE 78; TEMP 36.3
[2021-01-06 07:56] LABS: Glucose, Whole Blood 157 mg/dL (60-115)
[2021-01-06 09:10] VITALS: BP 124/61; PULSE 78
[2021-01-06] MEDS: lisinopriL 20 MG TABLET PO (09:10)
[2021-01-06] MEDS: Omeprazole 40 MG CAPSULE.DR PO (09:10)
[2021-01-06 09:11] VITALS: BP 124/61; PULSE 78
[2021-01-06] MEDS: Lithium Carbonate 300 MG TABLET PO ×2 (09:11→20:31)
[2021-01-06] MEDS: glipiZIDE 5 MG TABLET PO (09:11)
[2021-01-06] MEDS: Gabapentin 100 MG CAPSULE PO ×3 (09:11→20:31)
[2021-01-06] MEDS: FLUoxetine HCl 20 MG CAPSULE 40 MG PO (09:11)
[2021-01-06] MEDS: Prazosin HCL 1 MG CAPSULE PO ×2 (09:11→20:32)
[2021-01-06] MEDS: Folic Acid 1 MG TABLET PO (09:12)
[2021-01-06] MEDS: Dicyclomine HCl 10 MG CAPSULE 20 MG PO ×2 (16:16→20:33)
[2021-01-06 16:36] LABS: Glucose, Whole Blood 137 mg/dL (60-115)
[2021-01-06 18:00] VITALS: BP 125/72; PULSE 100; TEMP 36.6
--- NOTE | 2021-01-06 18:01 | HO.PSYCHPN ---
Subjective Subjective Date of Service: 01/06/21 Reason For Visit: Bipolar Disorder; PTSD Subjective Notes: Conditional Voluntary Healthcare Proxy: No Guardianship: No Medical Problems Affecting Mental Status: No Interim History: Feeling some improved mood stability with sedation. Discussed tapering Depakote. Asks for nutrition eval to discuss diabetic diet-ordered. Reports feeling very depressed when thinking about her family. Discussed coping strategies and sx mgt. Medication Compliance: Yes Side effects from medications: Yes (sedation) Attending Groups: Yes Review of Systems Reports behavioral changes Psychiatric: Reports anxiety, Reports behavioral changes, Reports change in appetite, Reports depression, Reports difficulty concentrating, Reports hopelessness, Reports irritability, Reports anhedonia, Reports mood swings, Reports panic attacks and Reports suicidal ideation Mental Status Exam Mental Status Exam Patient Appearance: Appropriate Patient Orientation: Person, Place, Time and Situation Level of Consciousness: Alert Patient Behavior: Appropriate, Talkative and Cooperative Mood Description: Labile Affect Description: Labile Patient Cognition Impaired: No Ability to Follow Directions: Good Speech Pattern: Clear, Appropriate, Spontaneous Speech and Coherent Memory Description: Intact Hallucinations: None Delusions: Not Present Thought Process: Intact and Rumination Thought Content: positive for Obsessional Thoughts, positive for Circumstantial, positive for Preoccupation and positive for Suicidal Ideation Depressive Symptoms: Increased Anxiety, Diff. Making Decisions, Increased Irritability, Sleeping More Than Usual, Hopelessness, Feelings of Guilt, Unhappiness, Low Self Esteem and Difficulty Concentrating Judgement: Fair Diagnostics Vital Signs (24Hr): Vital Signs - 24 hr 01/05/21 20:44 01/06/21 06:00 01/06/21 09:10 Temperature 97.4 F Pulse Rate 80 78 78 Blood Pressure 121/75 124/61 124/61 01/06/21 09:11 Temperature Pulse Rate 78 Blood Pressure 124/61 Body Mass Index 41.5 Labs Results: 01/01/21 20:56 01/01/21 20:56 Labs: Laboratory Results - last 48 hr 01/05/21 01/06/21 01/06/21 16:18 07:52 16:24 POC Glucose 161 H 157 H 137 H Imaging Radiology Impressions: ITS Impressions Chest X-Ray 01/03/21 10:00 IMPRESSION: No acute intrathoracic disease. Head CT 01/03/21 14:52 IMPRESSION: No acute intracranial abnormality. Medications Medications Current Medications Generic Name Dose Route Start Last Admin Trade Name Freq PRN Reason Stop Dose Admin Acetaminophen 650 mg 01/01/21 23:35 01/03/21 15:03 Acetaminophen 325 Mg Tablet PO 650 mg Q6H PRN Administration Headache/Pain Mild Scale (1-3) Al Hydroxide/Mg Hydroxide 30 ml 01/01/21 23:35 Magnesium Hydrox/Alum Hydrox 30 Ml Oral.Susp PO Q6H PRN Heartburn/Nausea Atorvastatin Calcium 10 mg 01/02/21 21:00 01/05/21 20:45 Atorvastatin Calcium 10 Mg Tablet PO 10 mg BEDTIME AMY Administration Cyclobenzaprine HCl 5 mg 01/04/21 15:52 01/04/21 16:09 Cyclobenzaprine Hcl 5 Mg Tablet PO 5 mg TID PRN Administration Back Pain Dicyclomine HCl 20 mg 01/06/21 16:30 01/06/21 16:16 Dicyclomine Hcl 10 Mg Capsule PO 20 mg QIDACHS AMY Administration Divalproex Sodium 250 mg 01/06/21 21:00 Divalproex Sodium 250 Mg Tablet.Dr PO 01/06/21 21:01 BEDTIME ONE Fluoxetine HCl 40 mg 01/02/21 09:00 01/06/21 09:11 Fluoxetine Hcl 20 Mg Capsule PO 40 mg DAILY AMY Administration Folic Acid 1 mg 01/02/21 09:00 01/06/21 09:12 Folic Acid 1 Mg Tablet PO 1 mg DAILY AMY Administration Gabapentin 600 mg 01/02/21 21:00 01/05/21 20:44 Gabapentin 300 Mg Capsule PO 600 mg BEDTIME AMY Administration Gabapentin 100 mg 01/04/21 21:00 01/06/21 15:11 Gabapentin 100 Mg Capsule PO 100 mg TID AMY Administration Glipizide 5 mg 01/04/21 09:00 01/06/21 09:11 Glipizide 5 Mg Tablet PO 5 mg DAILY AMY Administration Hydroxyzine HCl 25 mg 01/01/21 23:35 01/02/21 21:04 Hydroxyzine Hcl 25 Mg Tablet PO 25 mg BEDTIME PRN Administration Anxiety Ibuprofen 800 mg 01/01/21 23:31 01/02/21 08:49 Ibuprofen 800 Mg Tablet PO 800 mg Q6H PRN Administration pain Lisinopril 20 mg 01/02/21 09:00 01/06/21 09:10 Lisinopril 20 Mg Tablet PO 20 mg DAILY AMY Administration Protocol [place] Carbonate 300 mg 01/04/21 21:00 01/06/21 09:11 [place] Carbonate 300 Mg Tablet PO 300 mg BID AMY Administration Lorazepam 0.5 mg 01/01/21 23:45 01/05/21 20:46 Lorazepam 0.5 Mg Tablet PO 0.5 mg Q6H PRN Administration Anxiety Magnesium Hydroxide 30 ml 01/01/21 23:35 Milk Of Magnesia 30 Ml Oral.Susp PO DAILY PRN Constipation Olanzapine 5 mg 01/04/21 21:00 01/05/21 20:46 Olanzapine 5 Mg Tablet PO 5 mg BEDTIME AMY Administration Omeprazole 40 mg 01/02/21 09:00 01/06/21 09:10 Omeprazole 40 Mg Capsule.Dr PO 40 mg DAILY AMY Administration Prazosin HCl 1 mg 01/02/21 09:00 01/06/21 09:11 Prazosin Hcl 1 Mg Capsule PO 1 mg BID AMY Administration Protocol Trazodone HCl 100 mg 01/02/21 21:00 01/05/21 20:46 Trazodone Hcl 100 Mg Tablet PO 100 mg BEDTIME AMY Administration Allergies Allergies Allergy/AdvReac Type Severity Reaction Status Date / Time No Known Allergies Allergy Unverified 04/19/20 16:25 Assessment & Plan Assessment & Plan (1) Bipolar I disorder: Status: Acute Code(s): F31.9 - Bipolar disorder, unspecified Assessment and Plan: Mirna is a 60 yo female with a history of mood lability, depression and excessive cannabis abuse admitted for exacerbation of depression, lability and emotional dysregulation. She also reports confusion at times and difficulty with task completion. Thus far, medical eval is WNL. Today, in response to being told by a friend that her family wants nothing to do with me , she has become more labile, threatening suicide, refusing to eat and has taken to her bed. She was able to process some of these feelings today and we were able to target some interventions. Our immediate goal is mood stabilization and suicidality mgt. 1.Taper and discontinue Depakote. 2. Olanzapine 5 mg HS for mood, sx of dysphoric jason, racing thoughts mgt. 3. Gabapentin 100 mg tid-trial to assist in withdrawal of cannibis ~45 year hx. 4. [place] 300 mg bid-mgt of intense SI-possibly a component of a borderline personality organization presentation. 5. Nutrition eval-pt request, diabetic diet. (2) Cannabis use disorder, severe, dependence: Status: Acute Code(s): F12.20 - Cannabis dependence, uncomplicated Assessment and Plan: Gabapentin 100 mg tid trial. Pt is interested in a 30 day program for assistance in completely stopping cannabis Greater than 50% of the session was spent on counseling and/or coordination of care Reason for contiued inpatient stay Substantial Risk for: harm to self, inability to function and rapid decompensation
[2021-01-06] MEDS: LORazepam 0.5 MG TABLET PO (18:15)
[2021-01-06] MEDS: Gabapentin 300 MG CAPSULE 600 MG PO (20:30)
[2021-01-06] MEDS: traZODone HCL 100 MG TABLET PO (20:31)
[2021-01-06 20:32] VITALS: BP 125/72; PULSE 100
[2021-01-06] MEDS: OLANZapine 5 MG TABLET PO (20:32)
[2021-01-06] MEDS: Atorvastatin Calcium 10 MG TABLET PO (20:32)
[2021-01-06] MEDS: Divalproex Sodium 250 MG TABLET.DR PO (20:33)
[2021-01-06] MEDS: hydrOXYzine HCL 25 MG TABLET PO (23:22)
[2021-01-07 06:00] VITALS: BP 127/85; PULSE 95
[2021-01-07 06:43] LABS: Glucose, Whole Blood 159 mg/dL (60-115)
[2021-01-07] MEDS: Lithium Carbonate 300 MG TABLET PO ×2 (09:06→22:06)
[2021-01-07 09:07] VITALS: BP 127/85; PULSE 95
[2021-01-07] MEDS: lisinopriL 20 MG TABLET PO (09:07)
[2021-01-07] MEDS: Prazosin HCL 1 MG CAPSULE PO ×2 (09:07→22:07)
[2021-01-07] MEDS: glipiZIDE 5 MG TABLET PO (09:07)
[2021-01-07] MEDS: Folic Acid 1 MG TABLET PO (09:07)
[2021-01-07] MEDS: Gabapentin 100 MG CAPSULE PO ×3 (09:08→22:07)
[2021-01-07] MEDS: Dicyclomine HCl 10 MG CAPSULE 20 MG PO ×4 (09:08→22:06)
[2021-01-07] MEDS: Omeprazole 40 MG CAPSULE.DR PO (09:09)
[2021-01-07] MEDS: FLUoxetine HCl 20 MG CAPSULE 40 MG PO (09:12)
--- NOTE | 2021-01-07 10:43 | P.PNPSI_ITS ---
Subjective Subjective Date of Service: 01/07/21 Reason For Visit: Bipolar Disorder; PTSD Interim History: pt says im not good. She explains that she's depressed, anxious, has PtSD, bipolar depression and no memory left. She asks if ECT is a possibility and would like to discuss it with her primary team provider. Medication Compliance: Yes Attending Groups: No Mental Status Exam Mental Status Exam Narrative: Patient Appearance: Appropriate Patient Orientation: Person, Place, Time and Situation Level of Consciousness: Alert Patient Behavior: Appropriate, Talkative and Cooperative Mood Description: Labile Affect Description: Labile Patient Cognition Impaired: No Ability to Follow Directions: Good Speech Pattern: Clear, Appropriate, Spontaneous Speech and Coherent Memory Description: Intact Hallucinations: None Delusions: Not Present Thought Process: Intact and Rumination Thought Content: positive for Obsessional Thoughts, positive for Circumstantial, positive for Preoccupation and positive for Suicidal Ideation Depressive Symptoms: Increased Anxiety, Diff. Making Decisions, Increased Irritability, Sleeping More Than Usual, Hopelessness, Feelings of Guilt, Unhappiness, Low Self Esteem and Difficulty Concentrating Judgement: Fair Diagnostics Vital Signs (24Hr): Vital Signs - 24 hr 01/06/21 18:00 01/06/21 20:32 01/07/21 09:07 Temperature 97.9 F Pulse Rate 100 100 95 Blood Pressure 125/72 125/72 127/85 Body Mass Index 41.5 Labs Results: 01/01/21 20:56 01/01/21 20:56 Labs: Laboratory Results - last 48 hr 01/05/21 01/06/21 01/06/21 16:18 07:52 16:24 POC Glucose 161 H 157 H 137 H 01/07/21 06:27 POC Glucose 159 H Imaging Radiology Impressions: ITS Impressions Chest X-Ray 01/03/21 10:00 IMPRESSION: No acute intrathoracic disease. Head CT 01/03/21 14:52 IMPRESSION: No acute intracranial abnormality. Medications Medications Current Medications Generic Name Dose Route Start Last Admin Trade Name Freq PRN Reason Stop Dose Admin Acetaminophen 650 mg 01/01/21 23:35 01/03/21 15:03 Acetaminophen 325 Mg Tablet PO 650 mg Q6H PRN Administration Headache/Pain Mild Scale (1-3) Al Hydroxide/Mg Hydroxide 30 ml 01/01/21 23:35 Magnesium Hydrox/Alum Hydrox 30 Ml Oral.Susp PO Q6H PRN Heartburn/Nausea Atorvastatin Calcium 10 mg 01/02/21 21:00 01/06/21 20:32 Atorvastatin Calcium 10 Mg Tablet PO 10 mg BEDTIME AMY Administration Cyclobenzaprine HCl 5 mg 01/04/21 15:52 01/04/21 16:09 Cyclobenzaprine Hcl 5 Mg Tablet PO 5 mg TID PRN Administration Back Pain Dicyclomine HCl 20 mg 01/06/21 16:30 01/07/21 09:08 Dicyclomine Hcl 10 Mg Capsule PO 20 mg QIDACHS AMY Administration Fluoxetine HCl 40 mg 01/02/21 09:00 01/07/21 09:12 Fluoxetine Hcl 20 Mg Capsule PO 40 mg DAILY AMY Administration Folic Acid 1 mg 01/02/21 09:00 01/07/21 09:07 Folic Acid 1 Mg Tablet PO 1 mg DAILY AMY Administration Gabapentin 600 mg 01/02/21 21:00 01/06/21 20:30 Gabapentin 300 Mg Capsule PO 600 mg BEDTIME AMY Administration Gabapentin 100 mg 01/04/21 21:00 01/07/21 09:08 Gabapentin 100 Mg Capsule PO 100 mg TID AMY Administration Glipizide 5 mg 01/04/21 09:00 01/07/21 09:07 Glipizide 5 Mg Tablet PO 5 mg DAILY AMY Administration Hydroxyzine HCl 25 mg 01/01/21 23:35 01/06/21 23:22 Hydroxyzine Hcl 25 Mg Tablet PO 25 mg BEDTIME PRN Administration Anxiety Ibuprofen 800 mg 01/01/21 23:31 01/02/21 08:49 Ibuprofen 800 Mg Tablet PO 800 mg Q6H PRN Administration pain Lisinopril 20 mg 01/02/21 09:00 01/07/21 09:07 Lisinopril 20 Mg Tablet PO 20 mg DAILY AMY Administration Protocol [place] Carbonate 300 mg 01/04/21 21:00 01/07/21 09:06 [place] Carbonate 300 Mg Tablet PO 300 mg BID AMY Administration Lorazepam 0.5 mg 01/01/21 23:45 01/06/21 18:15 Lorazepam 0.5 Mg Tablet PO 0.5 mg Q6H PRN Administration Anxiety Magnesium Hydroxide 30 ml 01/01/21 23:35 Milk Of Magnesia 30 Ml Oral.Susp PO DAILY PRN Constipation Olanzapine 5 mg 01/04/21 21:00 01/06/21 20:32 Olanzapine 5 Mg Tablet PO 5 mg BEDTIME AMY Administration Omeprazole 40 mg 01/02/21 09:00 01/07/21 09:09 Omeprazole 40 Mg Capsule. PO 40 mg DAILY AMY Administration Prazosin HCl 1 mg 01/02/21 09:00 01/07/21 09:07 Prazosin Hcl 1 Mg Capsule PO 1 mg BID AMY Administration Protocol Trazodone HCl 100 mg 01/02/21 21:00 01/06/21 20:31 Trazodone Hcl 100 Mg Tablet PO 100 mg BEDTIME AMY Administration Allergies Allergies Allergy/AdvReac Type Severity Reaction Status Date / Time No Known Allergies Allergy Unverified 04/19/20 16:25 Assessment & Plan Assessment & Plan (1) Bipolar I disorder: Status: Acute Code(s): F31.9 - Bipolar disorder, unspecified Assessment and Plan: Mirna is a 60 yo female with a history of mood lability, depression and excessive cannabis abuse admitted for exacerbation of depression, lability and emotional dysregulation. She also reports confusion at times and difficulty with task completion. Thus far, medical eval is WNL. Today, in response to being told by a friend that her family wants nothing to do with me , she has become more labile, threatening suicide, refusing to eat and has taken to her bed. She was able to process some of these feelings today and we were able to target some interventions. Our immediate goal is mood stabilization and suicidality mgt. 1.Taper and discontinue Depakote. 2. Olanzapine 5 mg HS for mood, sx of dysphoric jason, racing thoughts mgt. 3. Gabapentin 100 mg tid-trial to assist in withdrawal of cannibis ~45 year hx. 4. [place] 300 mg bid-mgt of intense SI-possibly a component of a borderline personality organization presentation. 5. Nutrition eval-pt request, diabetic diet. (2) Cannabis use disorder, severe, dependence: Status: Acute Code(s): F12.20 - Cannabis dependence, uncomplicated Assessment and Plan: Gabapentin 100 mg tid trial. Pt is interested in a 30 day program for assistance in completely stopping cannabis Greater than 50% of the session was spent on counseling and/or coordination of care Reason for contiued inpatient stay Substantial Risk for: rapid decompensation
[2021-01-07] MEDS: LORazepam 0.5 MG TABLET PO (13:46)
[2021-01-07 16:44] VITALS: BP 109/78; PULSE 95; RESP 18; TEMP 36; O2SAT 94
[2021-01-07 17:44] LABS: Glucose, Whole Blood 109 mg/dL (60-115)
[2021-01-07] MEDS: OLANZapine 5 MG TABLET PO (22:05)
[2021-01-07] MEDS: Atorvastatin Calcium 10 MG TABLET PO (22:06)
[2021-01-07] MEDS: Gabapentin 300 MG CAPSULE 600 MG PO (22:06)
[2021-01-07 22:07] VITALS: BP 110/64; PULSE 92
[2021-01-07] MEDS: traZODone HCL 100 MG TABLET PO (22:07)
[2021-01-08] MEDS: Cyclobenzaprine HCl 5 MG TABLET PO (00:04)
[2021-01-08] MEDS: LORazepam 0.5 MG TABLET PO ×2 (00:04→13:03)
[2021-01-08 06:30] VITALS: BP 101/58; PULSE 78; RESP 16; TEMP 36.9; O2SAT 93
[2021-01-08 07:27] LABS: Glucose, Whole Blood 164 mg/dL (60-115)
[2021-01-08 09:13] VITALS: BP 129/75; PULSE 97
[2021-01-08] MEDS: lisinopriL 20 MG TABLET PO (09:13)
[2021-01-08] MEDS: FLUoxetine HCl 20 MG CAPSULE 40 MG PO (09:13)
[2021-01-08 09:14] VITALS: BP 129/75; PULSE 97
[2021-01-08] MEDS: glipiZIDE 5 MG TABLET PO (09:14)
[2021-01-08] MEDS: Lithium Carbonate 300 MG TABLET PO ×2 (09:14→20:08)
[2021-01-08] MEDS: Prazosin HCL 1 MG CAPSULE PO ×2 (09:14→20:10)
[2021-01-08] MEDS: Folic Acid 1 MG TABLET PO (09:14)
[2021-01-08] MEDS: Omeprazole 40 MG CAPSULE.DR PO (09:14)
[2021-01-08] MEDS: Dicyclomine HCl 10 MG CAPSULE 20 MG PO ×4 (09:14→20:07)
[2021-01-08] MEDS: Gabapentin 100 MG CAPSULE PO ×3 (09:14→20:10)
[2021-01-08] MEDS: Atorvastatin Calcium 10 MG TABLET PO (20:08)
[2021-01-08] MEDS: Gabapentin 300 MG CAPSULE 600 MG PO (20:08)
[2021-01-08] MEDS: traZODone HCL 100 MG TABLET PO (20:09)
[2021-01-08] MEDS: OLANZapine 5 MG TABLET PO (20:09)
[2021-01-08 20:10] VITALS: BP 118/78; PULSE 110; PULSE 78; TEMP 36.6
--- NOTE | 2021-01-08 21:10 | HO.PSYCHPN ---
Subjective Subjective Date of Service: 01/08/21 Reason For Visit: Bipolar Disorder; PTSD Subjective Notes: Conditional Voluntary Healthcare Proxy: No Guardianship: No Medical Problems Affecting Mental Status: No Interim History: Pt reports minimal improvement. She is angry, grieving that family has had no contact. She is worried as she is homeless and feels these are major contributors to her current condition. As a result she reports hearing voices of people calling her name, is unable to focus clearly to write a letter and her memory is poor. She asks for ECT consultation and [facility] commitment. She requested a visit from her service dog Katja and this was approved by administration. She continues with SI, stating , not here, but out there if I could I would. Medication Compliance: Yes Side effects from medications: No Attending Groups: Intermittent Review of Systems Reports behavioral changes and Reports confusion Psychiatric: Reports anxiety, Reports behavioral changes, Reports change in appetite, Reports confusion, Reports depression, Reports difficulty concentrating, Reports hopelessness, Reports irritability, Reports anhedonia, Reports mood swings, Reports panic attacks, Reports paranoia and Reports suicidal ideation Mental Status Exam Mental Status Exam Patient Appearance: Disheveled Patient Orientation: Person, Place, Time and Situation Level of Consciousness: Awake and Alert Patient Behavior: Talkative, Cooperative, Anxious and Good Eye Contact Mood Description: Depressed and Angry Affect Description: Flat Patient Cognition Impaired: No Ability to Follow Directions: Good Speech Pattern: Spontaneous Speech Memory Description: Episodic Impaired Hallucinations: Auditory Delusions: Not Present Thought Process: Distracted and Rumination Thought Content: positive for Circumstantial and positive for Suicidal Ideation Depressive Symptoms: Increased Anxiety, Increased Irritability, Loss of Int. in Activity, Feelings of Worthlessness, Hopelessness, Isolating-Friends/Family, Feelings of Guilt, Unhappiness, Increased Fatigue, Thoughts of /Suicide, Low Self Esteem, Loss of Energy and Difficulty Concentrating Judgement: Fair Diagnostics Vital Signs (24Hr): Vital Signs - 24 hr 01/07/21 22:07 01/08/21 06:30 01/08/21 09:13 Temperature 98.5 F Pulse Rate 92 78 97 Respiratory Rate 16 Blood Pressure 110/64 101/58 L 129/75 Pulse Oximetry 93 01/08/21 09:14 01/08/21 20:10 Temperature Pulse Rate 97 78 Respiratory Rate Blood Pressure 129/75 118/78 Pulse Oximetry Body Mass Index 41.5 Labs Results: 01/01/21 20:56 01/01/21 20:56 Labs: Laboratory Results - last 48 hr 01/07/21 01/07/21 01/08/21 06:27 17:39 06:47 POC Glucose 159 H 109 164 H Imaging Radiology Impressions: ITS Impressions Chest X-Ray 01/03/21 10:00 IMPRESSION: No acute intrathoracic disease. Head CT 01/03/21 14:52 IMPRESSION: No acute intracranial abnormality. Medications Medications Current Medications Generic Name Dose Route Start Last Admin Trade Name Freq PRN Reason Stop Dose Admin Acetaminophen 650 mg 01/01/21 23:35 01/03/21 15:03 Acetaminophen 325 Mg Tablet PO 650 mg Q6H PRN Administration Headache/Pain Mild Scale (1-3) Al Hydroxide/Mg Hydroxide 30 ml 01/01/21 23:35 Magnesium Hydrox/Alum Hydrox 30 Ml Oral.Susp PO Q6H PRN Heartburn/Nausea Atorvastatin Calcium 10 mg 01/02/21 21:00 01/08/21 20:08 Atorvastatin Calcium 10 Mg Tablet PO 10 mg BEDTIME AMY Administration Cyclobenzaprine HCl 5 mg 01/04/21 15:52 01/08/21 00:04 Cyclobenzaprine Hcl 5 Mg Tablet PO 5 mg TID PRN Administration Back Pain Dicyclomine HCl 20 mg 01/06/21 16:30 01/08/21 20:07 Dicyclomine Hcl 10 Mg Capsule PO 20 mg QIDACHS AMY Administration Fluoxetine HCl 40 mg 01/02/21 09:00 01/08/21 09:13 Fluoxetine Hcl 20 Mg Capsule PO 40 mg DAILY AMY Administration Folic Acid 1 mg 01/02/21 09:00 01/08/21 09:14 Folic Acid 1 Mg Tablet PO 1 mg DAILY AMY Administration Gabapentin 600 mg 01/02/21 21:00 01/08/21 20:08 Gabapentin 300 Mg Capsule PO 600 mg BEDTIME AMY Administration Gabapentin 100 mg 01/04/21 21:00 01/08/21 20:10 Gabapentin 100 Mg Capsule PO 100 mg TID AMY Administration Glipizide 5 mg 01/04/21 09:00 01/08/21 09:14 Glipizide 5 Mg Tablet PO 5 mg DAILY AMY Administration Hydroxyzine HCl 25 mg 01/01/21 23:35 01/06/21 23:22 Hydroxyzine Hcl 25 Mg Tablet PO 25 mg BEDTIME PRN Administration Anxiety Ibuprofen 800 mg 01/01/21 23:31 01/02/21 08:49 Ibuprofen 800 Mg Tablet PO 800 mg Q6H PRN Administration pain Lisinopril 20 mg 01/02/21 09:00 01/08/21 09:13 Lisinopril 20 Mg Tablet PO 20 mg DAILY AMY Administration Protocol [place] Carbonate 300 mg 01/04/21 21:00 01/08/21 20:08 [place] Carbon[place] 300 Mg Tablet PO 300 mg BID AMY Administration Lorazepam 0.5 mg 01/01/21 23:45 01/08/21 13:03 Lorazepam 0.5 Mg Tablet PO 0.5 mg Q6H PRN Administration Anxiety Magnesium Hydroxide 30 ml 01/01/21 23:35 Milk Of Magnes[place] 30 Ml Oral.Susp PO DAILY PRN Constipation Olanzapine 5 mg 01/04/21 21:00 01/08/21 20:09 Olanzapine 5 Mg Tablet PO 5 mg BEDTIME AMY Administration Omeprazole 40 mg 01/02/21 09:00 01/08/21 09:14 Omeprazole 40 Mg Capsule.Dr PO 40 mg DAILY AMY Administration Prazosin HCl 1 mg 01/02/21 09:00 01/08/21 20:10 Prazosin Hcl 1 Mg Capsule PO 1 mg BID AMY Administration Protocol Trazodone HCl 100 mg 01/02/21 21:00 01/08/21 20:09 Trazodone Hcl 100 Mg Tablet PO 100 mg BEDTIME AMY Administration Allergies Allergies Allergy/AdvReac Type Severity Reaction Status Date / Time No Known Allergies Allergy Unverified 04/19/20 16:25 Assessment & Plan Assessment & Plan (1) Bipolar I disorder: Status: Acute Code(s): F31.9 - Bipolar disorder, unspecified Assessment and Plan: Mirna is a 60 yo female with a history of mood lability, depression and excessive cannabis abuse admitted for exacerbation of depression, lability and emotional dysregulation. She also reports confusion at times and difficulty with task completion. Thus far, medical eval is WNL. Today, she discussed her anger and grief, and reports she thinks some part of her current symptoms are cannabis withdrawal. 1.Continue current regime (2) Cannabis use disorder, severe, dependence: Status: Acute Code(s): F12.20 - Cannabis dependence, uncomplicated Assessment and Plan: Gabapentin 100 mg tid trial. Pt is interested in a 30 day program for assistance in completely stopping cannabis Greater than 50% of the session was spent on counseling and/or coordination of care Reason for contiued inpatient stay Substantial Risk for: harm to self, inability to function and rapid decompensation
[2021-01-09 06:00] VITALS: BP 104/73; PULSE 80; RESP 16; TEMP 36.2; O2SAT 94
[2021-01-09] MEDS: Gabapentin 100 MG CAPSULE PO ×3 (08:31→20:13)
[2021-01-09] MEDS: Dicyclomine HCl 10 MG CAPSULE 20 MG PO ×4 (08:31→20:12)
[2021-01-09] MEDS: Omeprazole 40 MG CAPSULE.DR PO (08:31)
[2021-01-09 08:32] VITALS: BP 119/69; PULSE 85
[2021-01-09] MEDS: lisinopriL 20 MG TABLET PO (08:32)
[2021-01-09] MEDS: Lithium Carbonate 300 MG TABLET PO (08:32)
[2021-01-09] MEDS: Prazosin HCL 1 MG CAPSULE PO ×2 (08:32→20:11)
[2021-01-09] MEDS: glipiZIDE 5 MG TABLET PO (08:32)
[2021-01-09] MEDS: Folic Acid 1 MG TABLET PO (08:32)
[2021-01-09] MEDS: FLUoxetine HCl 20 MG CAPSULE 40 MG PO (08:32)
[2021-01-09 09:04] LABS: Lithium 0.52 mmol/L (0.60-1.20)
[2021-01-09 09:16] LABS: Anion Gap 13 (12-20); Blood Urea Nitrogen 15 mg/dL (9-16); Carbon Dioxide 31 mmol/L (22-29); Chloride 101 mmol/L (96-108); Creatinine Clr Calc Pharmacy 137.3; Estimated Glomerular Filt Rate > 60; Potassium 4.7 mmol/L (3.3-5.1); Sodium 140 mmol/L (135-145)
[2021-01-09 09:21] LABS: TSH reflex Free T4 4.05 uIU/mL (0.32-4.0)
[2021-01-09] MEDS: LORazepam 0.5 MG TABLET PO (09:51)
[2021-01-09] MEDS: Cyclobenzaprine HCl 5 MG TABLET PO ×2 (09:52→23:56)
[2021-01-09 10:37] LABS: Free T4 (Free Thyroxine) 0.74 ng/dL (0.71-1.85)
--- NOTE | 2021-01-09 12:51 | P.PNPSI_ITS ---
Subjective Subjective Date of Service: 01/09/21 Reason For Visit: Bipolar Disorder; PTSD Subjective Notes: Conditional Voluntary Healthcare Proxy: No Guardianship: No Medical Problems Affecting Mental Status: No Interim History: Pt reports she woke up feeling improved. Then things were taken away-TV Room availability, aunt breaking her promise that pt would not be homeless with increase in SI and sx. Labile, angry, most difficult sx are fast mood swings and depression. Li level sub therapeutic. will increase as well as Olanzapine. Pt talked of her father, a psychologist who took [facility] for bipolar disorder- he has the same sx I do. Very worried about being homeless. Service dog to visit today. Medication Compliance: Yes Side effects from medications: No Attending Groups: Yes Review of Systems Reports behavioral changes and Reports memory loss Psychiatric: Reports anxiety, Reports behavioral changes, Reports depression, Reports difficulty concentrating, Reports auditory hallucinations, Reports hopelessness, Reports irritability, Reports anhedonia, Reports memory loss, Reports mood swings, Reports panic attacks, Reports paranoia, Reports hallucinations and Reports suicidal ideation Mental Status Exam Mental Status Exam Patient Appearance: Appropriate Patient Orientation: Person, Place, Time and Situation Level of Consciousness: Awake and Alert Patient Behavior: Talkative, Cooperative, Restless, Fearful, Fatigued, Distractible, Good Eye Contact and Crying Mood Description: Depressed, Labile and Angry Affect Description: Depressed, Labile and Angry Patient Cognition Impaired: No Ability to Follow Directions: Good Speech Pattern: Spontaneous Speech Memory Description: Episodic Impaired Hallucinations: Auditory Delusions: Paranoid Ideation Thought Process: Distracted and Rumination Thought Content: positive for [place], positive for Obsessional Thoughts, positive for Circumstantial, positive for Goal Oriented, positive for Perseveration, positive for Preoccupation and positive for Suicidal Ideation Depressive Symptoms: Increased Anxiety, Diff. Making Decisions, Increased Irritability, Loss of Int. in Activity, Feelings of Worthlessness, Significant Weight Gain, Hopelessness, Isolating-Friends/Family, Feelings of Guilt, Unhappiness, Increased Fatigue, Thoughts of /Suicide, Low Self Esteem, Loss of Energy and Difficulty Concentrating Abnormal Motor Activity Signs and Symptoms: Agitation and Restlessness Judgement: Fair Diagnostics Vital Signs (24Hr): Vital Signs - 24 hr 01/08/21 20:10 01/09/21 06:00 01/09/21 08:32 Temperature 97.8 F 97.2 F Pulse Rate 110 H 80 85 Respiratory Rate 16 Blood Pressure 118/78 104/73 119/69 Pulse Oximetry 94 Body Mass Index 41.5 Labs Results: 01/01/21 20:56 01/09/21 07:56 Labs: Laboratory Results - last 48 hr 01/07/21 01/08/21 01/09/21 17:39 06:47 07:56 Sodium 140 Potassium 4.7 D Chloride 101 Carbon Dioxide 31 H Anion Gap 13 BUN 15 Creatinine 0.77 Estim Creat Clear Calc 137.3 Estimated GFR > 60 POC Glucose 109 164 H TSH 4.05 H Free T4 0.74 [facility] 01/09/21 07:56 Sodium Potassium Chloride Carbon Dioxide Anion Gap BUN Creatinine Estim Creat Clear Calc Estimated GFR POC Glucose TSH Free T4 [facility] 0.52 L Imaging Radiology Impressions: ITS Impressions Chest X-Ray 01/03/21 10:00 IMPRESSION: No acute intrathoracic disease. Head CT 01/03/21 14:52 IMPRESSION: No acute intracranial abnormality. Medications Medications Current Medications Generic Name Dose Route Start Last Admin Trade Name Freq PRN Reason Stop Dose Admin Acetaminophen 650 mg 01/01/21 23:35 01/03/21 15:03 Acetaminophen 325 Mg Tablet PO 650 mg Q6H PRN Administration Headache/Pain Mild Scale (1-3) Al Hydroxide/Mg Hydroxide 30 ml 01/01/21 23:35 Magnesium Hydrox/Alum Hydrox 30 Ml Oral.Susp PO Q6H PRN Heartburn/Nausea Atorvastatin Calcium 10 mg 01/02/21 21:00 01/08/21 20:08 Atorvastatin Calcium 10 Mg Tablet PO 10 mg BEDTIME AMY Administration Cyclobenzaprine HCl 5 mg 01/04/21 15:52 01/09/21 09:52 Cyclobenzaprine Hcl 5 Mg Tablet PO 5 mg TID PRN Administration Back Pain Dicyclomine HCl 20 mg 01/06/21 16:30 01/09/21 11:45 Dicyclomine Hcl 10 Mg Capsule PO 20 mg QIDACHS AMY Administration Fluoxetine HCl 40 mg 01/02/21 09:00 01/09/21 08:32 Fluoxetine Hcl 20 Mg Capsule PO 40 mg DAILY AMY Administration Folic Acid 1 mg 01/02/21 09:00 01/09/21 08:32 Folic Acid 1 Mg Tablet PO 1 mg DAILY AMY Administration Gabapentin 600 mg 01/02/21 21:00 01/08/21 20:08 Gabapentin 300 Mg Capsule PO 600 mg BEDTIME AMY Administration Gabapentin 100 mg 01/04/21 21:00 01/09/21 08:31 Gabapentin 100 Mg Capsule PO 100 mg TID AMY Administration Glipizide 5 mg 01/04/21 09:00 01/09/21 08:32 Glipizide 5 Mg Tablet PO 5 mg DAILY AMY Administration Hydroxyzine HCl 25 mg 01/01/21 23:35 01/06/21 23:22 Hydroxyzine Hcl 25 Mg Tablet PO 25 mg BEDTIME PRN Administration Anxiety Ibuprofen 800 mg 01/01/21 23:31 01/02/21 08:49 Ibuprofen 800 Mg Tablet PO 800 mg Q6H PRN Administration pain Lisinopril 20 mg 01/02/21 09:00 01/09/21 08:32 Lisinopril 20 Mg Tablet PO 20 mg DAILY AMY Administration Protocol [facility] Carbonate 450 mg 01/09/21 21:00 [facility] Carbonate Er 450 Mg Tablet.Er PO BID AMY Lorazepam 0.5 mg 01/01/21 23:45 01/09/21 09:51 Lorazepam 0.5 Mg Tablet PO 0.5 mg Q6H PRN Administration Anxiety Magnesium Hydroxide 30 ml 01/01/21 23:35 Milk Of Magnesia 30 Ml Oral.Susp PO DAILY PRN Constipation Olanzapine 10 mg 01/09/21 21:00 Olanzapine 10 Mg Tablet PO BEDTIME AMY Omeprazole 40 mg 01/02/21 09:00 01/09/21 08:31 Omeprazole 40 Mg Capsule.Dr PO 40 mg DAILY AMY Administration Prazosin HCl 1 mg 01/02/21 09:00 01/09/21 08:32 Prazosin Hcl 1 Mg Capsule PO 1 mg BID AMY Administration Protocol Trazodone HCl 100 mg 01/02/21 21:00 01/08/21 20:09 Trazodone Hcl 100 Mg Tablet PO 100 mg BEDTIME AMY Administration Allergies Allergies Allergy/AdvReac Type Severity Reaction Status Date / Time No Known Allergies Allergy Unverified 04/19/20 16:25 Assessment & Plan Assessment & Plan (1) Bipolar I disorder: Status: Acute Code(s): F31.9 - Bipolar disorder, unspecified Assessment and Plan: Mirna is a 60 yo female with a history of mood lability, depression and excessive cannabis abuse admitted for exacerbation of depression, lability and emotional dysregulation. She also reports confusion at times and difficulty with task completion. Thus far, medical eval is WNL. Pt struggling with homelessness and associated losses. 1.Change [facility] to ER 450 mg bid 2. Increase Olanzapine to 10 mg HS 3. Re-order nutrition eval for DM mgt. (2) Cannabis use disorder, severe, dependence: Status: Acute Code(s): F12.20 - Cannabis dependence, uncomplicated Assessment and Plan: Gabapentin 100 mg tid trial. Pt is interested in a 30 day program for assistance in completely stopping cannabis. Per team, insurance will not provide coverage for that level of care. Greater than 50% of the session was spent on counseling and/or coordination of care Reason for contiued inpatient stay Substantial Risk for: harm to self, inability to function, rapid decompensation and med/psych decompensation
[2021-01-09] MEDS: Acetaminophen 325 MG TABLET 650 MG PO (14:09)
--- NOTE | 2021-01-09 14:31 | MHC.CLN ---
NUTRITION CONSULT VISITED WITH PATIENT ABOUT DIET. DOES NOT WANT A DIABETIC DIET. CURRENT DIET=REGULAR. STATED THAT DOESN'T FOLLOW A DIABETIC DIET AT HOME. IS NOT INTERESTED IN CHANGING TO DIABETIC DIET AND NOT RECEPTIVE TO DIABETIC EDUCATION. MEDS REVIEWED, TAKES GLIMEPERIDE. POC RANGE OF [address] AVAILABLE NEEDED.
[2021-01-09 16:50] LABS: Glucose, Whole Blood 171 mg/dL (60-115)
[2021-01-09 18:00] VITALS: BP 116/51; PULSE 91; TEMP 36.3
[2021-01-09 20:11] VITALS: BP 116/51; PULSE 91
[2021-01-09] MEDS: Lithium Carbonate ER 450 MG TABLET.ER PO (20:11)
[2021-01-09] MEDS: Atorvastatin Calcium 10 MG TABLET PO (20:13)
[2021-01-09] MEDS: traZODone HCL 100 MG TABLET PO (20:13)
[2021-01-09] MEDS: OLANZapine 10 MG TABLET PO (20:13)
[2021-01-09] MEDS: Gabapentin 300 MG CAPSULE 600 MG PO (20:14)
[2021-01-09] MEDS: hydrOXYzine HCL 25 MG TABLET PO (23:57)
[2021-01-10 06:00] VITALS: BP 135/65; PULSE 93; RESP 18; TEMP 36.3; O2SAT 94
[2021-01-10 06:36] LABS: Glucose, Whole Blood 178 mg/dL (60-115)
[2021-01-10 09:35] VITALS: BP 130/85; PULSE 95
[2021-01-10] MEDS: Lithium Carbonate ER 450 MG TABLET.ER PO ×2 (09:35→21:03)
[2021-01-10] MEDS: Dicyclomine HCl 10 MG CAPSULE 20 MG PO ×4 (09:35→21:05)
[2021-01-10] MEDS: Folic Acid 1 MG TABLET PO (09:35)
[2021-01-10] MEDS: glipiZIDE 5 MG TABLET PO (09:35)
[2021-01-10] MEDS: Prazosin HCL 1 MG CAPSULE PO ×2 (09:35→21:01)
[2021-01-10] MEDS: lisinopriL 20 MG TABLET PO (09:35)
[2021-01-10] MEDS: Gabapentin 100 MG CAPSULE PO ×3 (09:35→21:03)
[2021-01-10] MEDS: Omeprazole 40 MG CAPSULE.DR PO (09:35)
[2021-01-10] MEDS: FLUoxetine HCl 20 MG CAPSULE 40 MG PO (09:35)
[2021-01-10 10:05] VITALS: BMI 40.6
[2021-01-10] MEDS: LORazepam 0.5 MG TABLET PO (11:28)
--- NOTE | 2021-01-10 16:27 | P.PNPSI_ITS ---
Subjective Subjective Date of Service: 01/10/21 Reason For Visit: Bipolar Disorder; PTSD Subjective Notes: Conditional Voluntary Healthcare Proxy: No Guardianship: No Medical Problems Affecting Mental Status: No Interim History: Beginning to discuss a discharge date with pt and this is upsetting as it is looking as if shelters are the primary option. Review of Borderline Personality Disorder with handouts and loaned pt DBT workbook to look at distress tolerance modules. Pt looking at a [facility]'s long term locally-we will have to make medication changes to make her application appropriate for admission which pt is willing to do. Looking at a full DBT therapy program with [facility] as well. Denies SI-improved affect modulation today-slapped a wall, then stopped, stating, no this is not the way to go with this. Very pleased her grandson visited yesterday along with her service dog. Reports family issues are beginning to correct themselves. Engaged in making calls for housing this [place]. Medication Compliance: Yes Side effects from medications: No Attending Groups: Intermittent Review of Systems Reports behavioral changes Psychiatric: Reports anxiety, Reports behavioral changes, Reports depression, Reports difficulty concentrating, Reports hopelessness, Reports irritability, Reports anhedonia, Reports mood swings, Reports panic attacks, Reports paranoia and Reports suicidal ideation (intermittent, when angry, feeling defeated.) Mental Status Exam Mental Status Exam Patient Appearance: Appropriate Patient Orientation: Person, Place, Time and Situation Level of Consciousness: Awake and Alert Patient Behavior: Appropriate, Talkative, Cooperative and Good Eye Contact Mood Description: Labile Affect Description: Labile Patient Cognition Impaired: No Ability to Follow Directions: Good Speech Pattern: Spontaneous Speech Memory Description: Intact Hallucinations: None Delusions: Not Present Thought Process: Intact and Distracted Thought Content: positive for [place] and positive for Circumstantial Depressive Symptoms: Increased Anxiety, Diff. Making Decisions, Increased Irritability, Loss of Int. in Activity, Feelings of Worthlessness, Significant Weight Gain, Hopelessness, Isolating-Friends/Family, Feelings of Guilt, Unhappiness, Increased Fatigue, Thoughts of /Suicide (intermittent) and Low Self Esteem Judgement: Good Diagnostics Vital Signs (24Hr): Vital Signs - 24 hr 01/09/21 18:00 01/09/21 20:11 01/10/21 06:00 Temperature 97.3 F 97.3 F Pulse Rate 91 91 93 Respiratory Rate 18 Blood Pressure 116/51 L 116/51 L 135/65 Pulse Oximetry 94 01/10/21 09:35 Temperature Pulse Rate 95 Respiratory Rate Blood Pressure 130/85 Pulse Oximetry Body Mass Index 40.6 Labs Results: 01/01/21 20:56 01/09/21 07:56 Labs: Laboratory Results - last 48 hr 01/09/21 01/09/21 01/09/21 07:56 07:56 16:46 Sodium 140 Potassium 4.7 D Chloride 101 Carbon Dioxide 31 H Anion Gap 13 BUN 15 Creatinine 0.77 Estim Creat Clear Calc 137.3 Estimated GFR > 60 POC Glucose 171 H TSH 4.05 H Free T4 0.74 [place] 0.52 L 01/10/21 06:31 Sodium Potassium Chloride Carbon Dioxide Anion Gap BUN Creatinine Estim Creat Clear Calc Estimated GFR POC Glucose 178 H TSH Free T4 [place] Imaging Radiology Impressions: ITS Impressions Chest X-Ray 01/03/21 10:00 IMPRESSION: No acute intrathoracic disease. Head CT 01/03/21 14:52 IMPRESSION: No acute intracranial abnormality. Medications Medications Current Medications Generic Name Dose Route Start Last Admin Trade Name Oskarq PRN Reason Stop Dose Admin Acetaminophen 650 mg 01/01/21 23:35 01/09/21 14:09 Acetaminophen 325 Mg Tablet PO 650 mg Q6H PRN Administration Headache/Pain Mild Scale (1-3) Al Hydroxide/Mg Hydroxide 30 ml 01/01/21 23:35 Magnesium Hydrox/Alum Hydrox 30 Ml Oral.Susp PO Q6H PRN Heartburn/Nausea Atorvastatin Calcium 10 mg 01/02/21 21:00 01/09/21 20:13 Atorvastatin Calcium 10 Mg Tablet PO 10 mg BEDTIME AMY Administration Cyclobenzaprine HCl 5 mg 01/04/21 15:52 01/09/21 23:56 Cyclobenzaprine Hcl 5 Mg Tablet PO 5 mg TID PRN Administration Back Pain Dicyclomine HCl 20 mg 01/06/21 16:30 01/10/21 16:04 Dicyclomine Hcl 10 Mg Capsule PO 20 mg QIDACHS AMY Administration Fluoxetine HCl 40 mg 01/02/21 09:00 01/10/21 09:35 Fluoxetine Hcl 20 Mg Capsule PO 40 mg DAILY AMY Administration Folic Acid 1 mg 01/02/21 09:00 01/10/21 09:35 Folic Acid 1 Mg Tablet PO 1 mg DAILY AMY Administration Gabapentin 600 mg 01/02/21 21:00 01/09/21 20:14 Gabapentin 300 Mg Capsule PO 600 mg BEDTIME AMY Administration Gabapentin 100 mg 01/04/21 21:00 01/10/21 14:26 Gabapentin 100 Mg Capsule PO 100 mg TID AMY Administration Glipizide 5 mg 01/04/21 09:00 01/10/21 09:35 Glipizide 5 Mg Tablet PO 5 mg DAILY AMY Administration Hydroxyzine HCl 25 mg 01/01/21 23:35 01/09/21 23:57 Hydroxyzine Hcl 25 Mg Tablet PO 25 mg BEDTIME PRN Administration Anxiety Ibuprofen 800 mg 01/01/21 23:31 01/02/21 08:49 Ibuprofen 800 Mg Tablet PO 800 mg Q6H PRN Administration pain Lisinopril 20 mg 01/02/21 09:00 01/10/21 09:35 Lisinopril 20 Mg Tablet PO 20 mg DAILY AMY Administration Protocol [place] Carbonate 450 mg 01/09/21 21:00 01/10/21 09:35 [place] Carbonate Er 450 Mg Tablet.Er PO 450 mg BID AMY Administration Lorazepam 0.5 mg 01/01/21 23:45 01/10/21 11:28 Lorazepam 0.5 Mg Tablet PO 0.5 mg Q6H PRN Administration Anxiety Magnesium Hydroxide 30 ml 01/01/21 23:35 Milk Of Magnesia 30 Ml Oral.Susp PO DAILY PRN Constipation Olanzapine 10 mg 01/09/21 21:00 01/09/21 20:13 Olanzapine 10 Mg Tablet PO 10 mg BEDTIME AMY Administration Omeprazole 40 mg 01/02/21 09:00 01/10/21 09:35 Omeprazole 40 Mg Capsule.Dr PO 40 mg DAILY AMY Administration Prazosin HCl 1 mg 01/02/21 09:00 01/10/21 09:35 Prazosin Hcl 1 Mg Capsule PO 1 mg BID AMY Administration Protocol Trazodone HCl 100 mg 01/02/21 21:00 01/09/21 20:13 Trazodone Hcl 100 Mg Tablet PO 100 mg BEDTIME AMY Administration Allergies Allergies Allergy/AdvReac Type Severity Reaction Status Date / Time No Known Allergies Allergy Unverified 04/19/20 16:25 Assessment & Plan Assessment & Plan (1) Bipolar I disorder: Status: Acute Code(s): F31.9 - Bipolar disorder, unspecified Assessment and Plan: Mirna is a 60 yo female with a history of mood lability, depression and excessive cannabis abuse admitted for exacerbation of depression, lability and emotional dysregulation. She also reports confusion at times and difficulty with task completion. Thus far, medical eval is WNL. Pt struggling with homelessness and associated losses. 1.Continue current plan of care. (2) Cannabis use disorder, severe, dependence: Status: Acute Code(s): F12.20 - Cannabis dependence, uncomplicated Greater than 50% of the session was spent on counseling and/or coordination of care Reason for contiued inpatient stay Substantial Risk for: harm to self, inability to function, rapid decompensation and med/psych decompensation
[2021-01-10 16:37] LABS: Glucose, Whole Blood 136 mg/dL (60-115)
[2021-01-10 18:00] VITALS: BP 117/70; PULSE 95; TEMP 36.4
[2021-01-10] MEDS: Ibuprofen 800 MG TABLET PO (19:53)
[2021-01-10 21:01] VITALS: BP 112/59; PULSE 99
[2021-01-10] MEDS: traZODone HCL 100 MG TABLET PO (21:01)
[2021-01-10] MEDS: OLANZapine 10 MG TABLET PO (21:02)
[2021-01-10] MEDS: Atorvastatin Calcium 10 MG TABLET PO (21:02)
[2021-01-10] MEDS: hydrOXYzine HCL 25 MG TABLET PO (21:02)
[2021-01-10] MEDS: Gabapentin 300 MG CAPSULE 600 MG PO (22:10)
[2021-01-11 06:17] LABS: Glucose, Whole Blood 155 mg/dL (60-115)
[2021-01-11] MEDS: Dicyclomine HCl 10 MG CAPSULE 20 MG PO ×4 (10:26→22:48)
[2021-01-11] MEDS: Gabapentin 100 MG CAPSULE PO (10:27)
[2021-01-11] MEDS: Omeprazole 40 MG CAPSULE.DR PO (10:28)
[2021-01-11] MEDS: Lithium Carbonate ER 450 MG TABLET.ER PO ×2 (10:28→10:29)
[2021-01-11 10:30] VITALS: BP 132/82; PULSE 88
[2021-01-11] MEDS: glipiZIDE 5 MG TABLET PO (10:30)
[2021-01-11] MEDS: FLUoxetine HCl 20 MG CAPSULE 40 MG PO (10:30)
[2021-01-11] MEDS: Folic Acid 1 MG TABLET PO (10:30)
[2021-01-11] MEDS: Prazosin HCL 1 MG CAPSULE PO ×2 (10:30→22:48)
[2021-01-11] MEDS: lisinopriL 20 MG TABLET PO (10:30)
[2021-01-11] MEDS: LORazepam 0.5 MG TABLET PO (11:00)
[2021-01-11 18:00] VITALS: BP 103/75; PULSE 115; TEMP 36.4
--- NOTE | 2021-01-11 18:45 | P.PNPSI_ITS ---
Subjective Subjective Date of Service: 01/11/21 Reason For Visit: Bipolar Disorder; PTSD Subjective Notes: Conditional Voluntary Healthcare Proxy: No Guardianship: No Medical Problems Affecting Mental Status: No Interim History: Reports tremor. Will decrease [place] to 300 bid. Reports feeling overwhelmed, difficult to focus as she is concerned about housing. Working on calls, options. Asking if insurance will cover residential programs for her. Medication Compliance: Yes Side effects from medications: Yes (tremor) Attending Groups: Yes Review of Systems Reports behavioral changes Psychiatric: Reports anxiety, Reports behavioral changes, Reports depression, Reports difficulty concentrating, Reports hopelessness, Reports irritability, Reports anhedonia, Reports mood swings, Reports panic attacks, Reports paranoia, Reports hallucinations and Reports suicidal ideation Mental Status Exam Mental Status Exam Patient Appearance: Fatigued Patient Orientation: Person, Place, Time and Situation Level of Consciousness: Alert Patient Behavior: Talkative and Cooperative Mood Description: Labile Affect Description: Labile Patient Cognition Impaired: No Ability to Follow Directions: Good Speech Pattern: Spontaneous Speech Memory Description: Episodic Impaired Hallucinations: None Thought Process: Distracted and Rumination Thought Content: positive for Circumstantial Depressive Symptoms: Increased Anxiety, Increased Irritability, Crying Spells, Loss of Int. in Activity, Feelings of Worthlessness, Hopelessness, Isolating-Friends/Family, Feelings of Guilt, Unhappiness, Increased Fatigue, Thoughts of /Suicide, Low Self Esteem, Loss of Energy and Difficulty Concentrating Judgement: Fair Diagnostics Vital Signs (24Hr): Vital Signs - 24 hr 01/10/21 21:01 01/11/21 10:30 Pulse Rate 99 88 Blood Pressure 112/59 L 132/82 Body Mass Index 40.6 Labs Results: 01/01/21 20:56 01/09/21 07:56 Labs: Laboratory Results - last 48 hr 01/10/21 01/10/21 01/11/21 06:31 16:31 06:05 POC Glucose 178 H 136 H 155 H Imaging Radiology Impressions: ITS Impressions Chest X-Ray 01/03/21 10:00 IMPRESSION: No acute intrathoracic disease. Head CT 01/03/21 14:52 IMPRESSION: No acute intracranial abnormality. Medications Medications Current Medications Generic Name Dose Route Start Last Admin Trade Name Freq PRN Reason Stop Dose Admin Acetaminophen 650 mg 01/01/21 23:35 01/09/21 14:09 Acetaminophen 325 Mg Tablet PO 650 mg Q6H PRN Administration Headache/Pain Mild Scale (1-3) Al Hydroxide/Mg Hydroxide 30 ml 01/01/21 23:35 Magnesium Hydrox/Alum Hydrox 30 Ml Oral.Susp PO Q6H PRN Heartburn/Nausea Atorvastatin Calcium 10 mg 01/02/21 21:00 01/10/21 21:02 Atorvastatin Calcium 10 Mg Tablet PO 10 mg BEDTIME AMY Administration Cyclobenzaprine HCl 5 mg 01/04/21 15:52 01/09/21 23:56 Cyclobenzaprine Hcl 5 Mg Tablet PO 5 mg TID PRN Administration Back Pain Dicyclomine HCl 20 mg 01/06/21 16:30 01/11/21 17:05 Dicyclomine Hcl 10 Mg Capsule PO 20 mg QIDACHS AMY Administration Fluoxetine HCl 40 mg 01/02/21 09:00 01/11/21 10:30 Fluoxetine Hcl 20 Mg Capsule PO 40 mg DAILY AMY Administration Folic Acid 1 mg 01/02/21 09:00 01/11/21 10:30 Folic Acid 1 Mg Tablet PO 1 mg DAILY AMY Administration Gabapentin 600 mg 01/02/21 21:00 01/10/21 22:10 Gabapentin 300 Mg Capsule PO 01/12/21 08:00 600 mg BEDTIME AMY Administration Gabapentin 300 mg 01/12/21 21:00 Gabapentin 300 Mg Capsule PO 01/14/21 08:00 BEDTIME AMY Glipizide 5 mg 01/04/21 09:00 01/11/21 10:30 Glipizide 5 Mg Tablet PO 5 mg DAILY AMY Administration Hydroxyzine HCl 25 mg 01/01/21 23:35 01/10/21 21:02 Hydroxyzine Hcl 25 Mg Tablet PO 25 mg BEDTIME PRN Administration Anxiety Ibuprofen 800 mg 01/01/21 23:31 01/10/21 19:53 Ibuprofen 800 Mg Tablet PO 800 mg Q6H PRN Administration pain Lisinopril 20 mg 01/02/21 09:00 01/11/21 10:30 Lisinopril 20 Mg Tablet PO 20 mg DAILY AMY Administration Protocol Magnesium Hydroxide 30 ml 01/01/21 23:35 Milk Of Magnesia 30 Ml Oral.Susp PO DAILY PRN Constipation Olanzapine 10 mg 01/09/21 21:00 01/10/21 21:02 Olanzapine 10 Mg Tablet PO 10 mg BEDTIME AMY Administration Omeprazole 40 mg 01/02/21 09:00 01/11/21 10:28 Omeprazole 40 Mg Capsule. PO 40 mg DAILY AMY Administration Prazosin HCl 1 mg 01/02/21 09:00 01/11/21 10:30 Prazosin Hcl 1 Mg Capsule PO 1 mg BID AMY Administration Protocol Trazodone HCl 100 mg 01/02/21 21:00 01/10/21 21:01 Trazodone Hcl 100 Mg Tablet PO 100 mg BEDTIME AMY Administration Allergies Allergies Allergy/AdvReac Type Severity Reaction Status Date / Time No Known Allergies Allergy Unverified 04/19/20 16:25 Assessment & Plan Assessment & Plan (1) Bipolar I disorder: Status: Acute Code(s): F31.9 - Bipolar disorder, unspecified Assessment and Plan: Mirna is a 60 yo female with a history of mood lability, depression and excessive cannabis abuse admitted for exacerbation of depression, lability and emotional dysregulation. She also reports confusion at times and difficulty with task completion. Thus far, medical eval is WNL. Pt struggling with homelessness and associated losses. 1.Decrease [place] to 300 mg bid secondary to tremor. (2) Cannabis use disorder, severe, dependence: Status: Acute Code(s): F12.20 - Cannabis dependence, uncomplicated Greater than 50% of the session was spent on counseling and/or coordination of care Reason for contiued inpatient stay Substantial Risk for: harm to self, inability to function, rapid decompensation and med/psych decompensation
[2021-01-11 19:01] LABS: Glucose, Whole Blood 200 mg/dL (60-115)
[2021-01-11 19:07] VITALS: BP 109/57; PULSE 97
[2021-01-11 22:48] VITALS: BP 146/85; PULSE 101
[2021-01-11] MEDS: OLANZapine 10 MG TABLET PO (22:48)
[2021-01-11] MEDS: Lithium Carbonate 300 MG TABLET PO (22:48)
[2021-01-11] MEDS: Atorvastatin Calcium 10 MG TABLET PO (22:48)
[2021-01-11] MEDS: Gabapentin 300 MG CAPSULE 600 MG PO (22:48)
[2021-01-11] MEDS: traZODone HCL 100 MG TABLET PO (22:48)
[2021-01-11] MEDS: hydrOXYzine HCL 25 MG TABLET PO (23:19)
[2021-01-12 06:00] VITALS: BP 100/56; PULSE 58; RESP 16; TEMP 36.3; O2SAT 94
[2021-01-12 07:17] LABS: Glucose, Whole Blood 160 mg/dL (60-115)
--- NOTE | 2021-01-12 09:20 | P.PNPSI_ITS ---
Subjective Subjective Date of Service: 01/12/21 Reason For Visit: Bipolar Disorder; PTSD Interim History: Patient denied SI or HI. She said that she was denied ECT but but discussed it with automobile and property underwriter and felt okay about not getting it. She said she just found out that she has borderline personality disorder and is looking forward to working on it with treatment. Regarding suicide, patient says she would never do it, her love for her grandchildren being a very strong protective factor. Otherwise no complaints and no requests Mental Status Exam Mental Status Exam Narrative: Pt is alert and oriented; behavior is cooperative, friendly and calm; patient is not in distress; dressed in casual attire with adequate hygiene; mood is described as I'm here and affect euthymic; eye contact appropriate; Speech is normal rate, volume and prosody and not pressured; no psychomotor agitation/r etardation present; thought process is organized, linear, logical and goal directed. Thought content is on treatment, pending discharge and otherwise pertinent to relevant topics and without any delusional content, paranoid ideations or grandiosity; denies any SI/HI. There is no evidence of perceptual disturbance. Patients insight and judgment appear intact. Diagnostics Vital Signs (24Hr): Vital Signs - 24 hr 01/11/21 10:30 01/11/21 18:00 01/11/21 19:07 Temperature 97.5 F Pulse Rate 88 115 H 97 Respiratory Rate Blood Pressure 132/82 103/75 109/57 L Pulse Oximetry 01/11/21 22:48 01/12/21 06:00 Temperature 97.4 F Pulse Rate 101 H 58 Respiratory Rate 16 Blood Pressure 146/85 H 100/56 L Pulse Oximetry 94 Body Mass Index 40.6 Labs Results: 01/14/21 07:38 01/14/21 07:38 Labs: Laboratory Results - last 48 hr 01/10/21 01/11/21 01/11/21 16:31 06:05 18:56 POC Glucose 136 H 155 H 200 H 01/12/21 07:04 POC Glucose 160 H Imaging Radiology Impressions: ITS Impressions Chest X-Ray 01/03/21 10:00 IMPRESSION: No acute intrathoracic disease. Head CT 01/03/21 14:52 IMPRESSION: No acute intracranial abnormality. Medications Medications Current Medications Generic Name Dose Route Start Last Admin Trade Name Freq PRN Reason Stop Dose Admin Acetaminophen 650 mg 01/01/21 23:35 01/09/21 14:09 Acetaminophen 325 Mg Tablet PO 650 mg Q6H PRN Administration Headache/Pain Mild Scale (1-3) Al Hydroxide/Mg Hydroxide 30 ml 01/01/21 23:35 Magnesium Hydrox/Alum Hydrox 30 Ml Oral.Susp PO Q6H PRN Heartburn/Nausea Atorvastatin Calcium 10 mg 01/02/21 21:00 01/11/21 22:48 Atorvastatin Calcium 10 Mg Tablet PO 10 mg BEDTIME AMY Administration Cyclobenzaprine HCl 5 mg 01/04/21 15:52 01/09/21 23:56 Cyclobenzaprine Hcl 5 Mg Tablet PO 5 mg TID PRN Administration Back Pain Dicyclomine HCl 20 mg 01/06/21 16:30 01/11/21 22:48 Dicyclomine Hcl 10 Mg Capsule PO 20 mg QIDACHS AMY Administration Fluoxetine HCl 40 mg 01/02/21 09:00 01/11/21 10:30 Fluoxetine Hcl 20 Mg Capsule PO 40 mg DAILY AMY Administration Folic Acid 1 mg 01/02/21 09:00 01/11/21 10:30 Folic Acid 1 Mg Tablet PO 1 mg DAILY AMY Administration Gabapentin 300 mg 01/12/21 21:00 Gabapentin 300 Mg Capsule PO 01/14/21 08:00 BEDTIME AMY Glipizide 5 mg 01/04/21 09:00 01/11/21 10:30 Glipizide 5 Mg Tablet PO 5 mg DAILY AMY Administration Hydroxyzine HCl 25 mg 01/01/21 23:35 01/11/21 23:19 Hydroxyzine Hcl 25 Mg Tablet PO 25 mg BEDTIME PRN Administration Anxiety Ibuprofen 800 mg 01/01/21 23:31 01/10/21 19:53 Ibuprofen 800 Mg Tablet PO 800 mg Q6H PRN Administration pain Lisinopril 20 mg 01/02/21 09:00 01/11/21 10:30 Lisinopril 20 Mg Tablet PO 20 mg DAILY AMY Administration Protocol [place] Carbonate 300 mg 01/11/21 21:00 01/11/21 22:48 [place] Carbonate 300 Mg Tablet PO 300 mg BID AMY Administration Magnesium Hydroxide 30 ml 01/01/21 23:35 Milk Of Magnesia 30 Ml Oral.Susp PO DAILY PRN Constipation Olanzapine 10 mg 01/09/21 21:00 01/11/21 22:48 Olanzapine 10 Mg Tablet PO 10 mg BEDTIME AMY Administration Olanzapine 2.5 mg 01/11/21 18:54 Olanzapine 2.5 Mg Tablet PO TID PRN agitation,anxiety Omeprazole 40 mg 01/02/21 09:00 01/11/21 10:28 Omeprazole 40 Mg Capsule.Dr PO 40 mg DAILY AMY Administration Prazosin HCl 1 mg 01/02/21 09:00 01/11/21 22:48 Prazosin Hcl 1 Mg Capsule PO 1 mg BID AMY Administration Protocol Trazodone HCl 100 mg 01/02/21 21:00 01/11/21 22:48 Trazodone Hcl 100 Mg Tablet PO 100 mg BEDTIME AMY Administration Allergies Allergies Allergy/AdvReac Type Severity Reaction Status Date / Time No Known Allergies Allergy Unverified 04/19/20 16:25 Assessment & Plan Assessment & Plan (1) Bipolar I disorder: Status: Acute Code(s): F31.9 - Bipolar disorder, unspecified Assessment and Plan: Weekend coverage: no changes to current tx plan pt stable Mirna is a 60 yo female with a history of mood lability, depression and excessive cannabis abuse admitted for exacerbation of depression, lability and emotional dysregulation. She also reports confusion at times and difficulty with task completion. Thus far, medical eval is WNL. Pt struggling with homelessness and associated losses. 1.Decrease [place] to 300 mg bid secondary to tremor. (2) Cannabis use disorder, severe, dependence: Status: Acute Code(s): F12.20 - Cannabis dependence, uncomplicated Greater than 50% of the session was spent on counseling and/or coordination of care Reason for contiued inpatient stay Substantial Risk for: med/psych decompensation
[2021-01-12] MEDS: Dicyclomine HCl 10 MG CAPSULE 20 MG PO ×4 (09:37→20:54)
[2021-01-12] MEDS: Lithium Carbonate 300 MG TABLET PO ×2 (09:37→20:54)
[2021-01-12] MEDS: Folic Acid 1 MG TABLET PO (09:37)
[2021-01-12] MEDS: glipiZIDE 5 MG TABLET PO (09:37)
[2021-01-12] MEDS: Omeprazole 40 MG CAPSULE.DR PO (09:37)
[2021-01-12] MEDS: FLUoxetine HCl 20 MG CAPSULE 40 MG PO (09:37)
[2021-01-12 09:41] VITALS: BP 130/77; PULSE 96
[2021-01-12] MEDS: Prazosin HCL 1 MG CAPSULE PO ×2 (09:41→20:54)
[2021-01-12] MEDS: lisinopriL 20 MG TABLET PO (09:41)
[2021-01-12 09:47] VITALS: BP 130/77; PULSE 96; RESP 18; TEMP 36.4; O2SAT 95
[2021-01-12 16:30] VITALS: BP 128/65; PULSE 100; TEMP 36.8
[2021-01-12 16:54] LABS: Glucose, Whole Blood 161 mg/dL (60-115)
[2021-01-12 20:54] VITALS: BP 109/68; PULSE 101
[2021-01-12] MEDS: traZODone HCL 100 MG TABLET PO (20:54)
[2021-01-12] MEDS: Gabapentin 300 MG CAPSULE PO (20:54)
[2021-01-12] MEDS: Atorvastatin Calcium 10 MG TABLET PO (20:54)
[2021-01-12] MEDS: OLANZapine 10 MG TABLET PO (20:54)
[2021-01-12] MEDS: hydrOXYzine HCL 25 MG TABLET PO (23:21)
[2021-01-13 06:25] VITALS: BP 120/60; PULSE 85; RESP 18; TEMP 36.6; O2SAT 95
[2021-01-13 06:42] LABS: Glucose, Whole Blood 172 mg/dL (60-115)
[2021-01-13 09:50] VITALS: BP 126/86; PULSE 85
[2021-01-13] MEDS: Folic Acid 1 MG TABLET PO (09:50)
[2021-01-13] MEDS: Omeprazole 40 MG CAPSULE.DR PO (09:50)
[2021-01-13] MEDS: Dicyclomine HCl 10 MG CAPSULE 20 MG PO ×3 (09:50→20:37)
[2021-01-13] MEDS: lisinopriL 20 MG TABLET PO (09:50)
[2021-01-13] MEDS: FLUoxetine HCl 20 MG CAPSULE 40 MG PO (09:50)
[2021-01-13] MEDS: glipiZIDE 5 MG TABLET PO (09:51)
[2021-01-13] MEDS: Lithium Carbonate 300 MG TABLET PO ×2 (09:51→20:37)
[2021-01-13 09:53] VITALS: BP 126/82; PULSE 85
[2021-01-13] MEDS: Prazosin HCL 1 MG CAPSULE PO ×2 (09:53→20:37)
--- NOTE | 2021-01-13 10:13 | HO.PSYCHPN ---
Subjective Subjective Date of Service: 01/13/21 Reason For Visit: Bipolar Disorder; PTSD Interim History: pt says she's not good since she's going to be discharged tomorrow and will be living in her car. Pt denies any SI or HI and says she would never kill herself out of love for her 4 grandchildren. She says she's working to be better; she has borderline personality disorder and she came to the hospital to work on herself so she can be closer to her grandchildren. Pt thanks senior copywriter for talking Mental Status Exam Mental Status Exam Narrative: Patient Appearance: Fatigued Patient Orientation: Person, Place, Time and Situation Level of Consciousness: Alert Patient Behavior: Talkative and Cooperative Mood Description: anxious Affect Description: congruent Patient Cognition Impaired: No Ability to Follow Directions: Good Speech Pattern: Spontaneous Speech Memory Description: Episodic Impaired Hallucinations: None Thought Process: linear and goal oriented Thought Content: anxious about discharge; no SI/HI Judgement: Fair Diagnostics Vital Signs (24Hr): Vital Signs - 24 hr 01/12/21 16:30 01/12/21 20:54 01/13/21 06:25 Temperature 98.3 F 98 F Pulse Rate 100 101 H 85 Respiratory Rate 18 Blood Pressure 128/65 109/68 120/60 Pulse Oximetry 95 01/13/21 09:50 01/13/21 09:53 Temperature Pulse Rate 85 85 Respiratory Rate Blood Pressure 126/86 126/82 Pulse Oximetry Body Mass Index 40.6 Labs Results: 01/01/21 20:56 01/09/21 07:56 Labs: Laboratory Results - last 48 hr 01/11/21 01/12/21 01/12/21 18:56 07:04 16:50 POC Glucose 200 H 160 H 161 H 01/13/21 06:23 POC Glucose 172 H Imaging Radiology Impressions: ITS Impressions Chest X-Ray 01/03/21 10:00 IMPRESSION: No acute intrathoracic disease. Head CT 01/03/21 14:52 IMPRESSION: No acute intracranial abnormality. Medications Medications Current Medications Generic Name Dose Route Start Last Admin Trade Name Freq PRN Reason Stop Dose Admin Acetaminophen 650 mg 01/01/21 23:35 01/09/21 14:09 Acetaminophen 325 Mg Tablet PO 650 mg Q6H PRN Administration Headache/Pain Mild Scale (1-3) Al Hydroxide/Mg Hydroxide 30 ml 01/01/21 23:35 Magnesium Hydrox/Alum Hydrox 30 Ml Oral.Susp PO Q6H PRN Heartburn/Nausea Atorvastatin Calcium 10 mg 01/02/21 21:00 01/12/21 20:54 Atorvastatin Calcium 10 Mg Tablet PO 10 mg BEDTIME AMY Administration Cyclobenzaprine HCl 5 mg 01/04/21 15:52 01/09/21 23:56 Cyclobenzaprine Hcl 5 Mg Tablet PO 5 mg TID PRN Administration Back Pain Dicyclomine HCl 20 mg 01/06/21 16:30 01/13/21 09:50 Dicyclomine Hcl 10 Mg Capsule PO 20 mg QIDACHS AMY Administration Fluoxetine HCl 40 mg 01/02/21 09:00 01/13/21 09:50 Fluoxetine Hcl 20 Mg Capsule PO 40 mg DAILY AMY Administration Folic Acid 1 mg 01/02/21 09:00 01/13/21 09:50 Folic Acid 1 Mg Tablet PO 1 mg DAILY AMY Administration Gabapentin 300 mg 01/12/21 21:00 01/12/21 20:54 Gabapentin 300 Mg Capsule PO 01/14/21 08:00 300 mg BEDTIME AMY Administration Glipizide 5 mg 01/04/21 09:00 01/13/21 09:51 Glipizide 5 Mg Tablet PO 5 mg DAILY MAY Administration Hydroxyzine HCl 25 mg 01/01/21 23:35 01/12/21 23:21 Hydroxyzine Hcl 25 Mg Tablet PO 25 mg BEDTIME PRN Administration Anxiety Ibuprofen 800 mg 01/01/21 23:31 01/10/21 19:53 Ibuprofen 800 Mg Tablet PO 800 mg Q6H PRN Administration pain Lisinopril 20 mg 01/02/21 09:00 01/13/21 09:50 Lisinopril 20 Mg Tablet PO 20 mg DAILY AMY Administration Protocol [place] Carbonate 300 mg 01/11/21 21:00 01/13/21 09:51 [place] Carbonate 300 Mg Tablet PO 300 mg BID AMY Administration Magnesium Hydroxide 30 ml 01/01/21 23:35 Milk Of Magnesia 30 Ml Oral.Susp PO DAILY PRN Constipation Olanzapine 10 mg 01/09/21 21:00 01/12/21 20:54 Olanzapine 10 Mg Tablet PO 10 mg BEDTIME AMY Administration Olanzapine 2.5 mg 01/11/21 18:54 Olanzapine 2.5 Mg Tablet PO TID PRN agitation,anxiety Omeprazole 40 mg 01/02/21 09:00 06/13/21 09:50 Omeprazole 40 Mg Capsule. PO 40 mg DAILY AMY Administration Prazosin HCl 1 mg 01/02/21 09:00 01/13/21 09:53 Prazosin Hcl 1 Mg Capsule PO 1 mg BID AMY Administration Protocol Trazodone HCl 100 mg 01/02/21 21:00 01/12/21 20:54 Trazodone Hcl 100 Mg Tablet PO 100 mg BEDTIME AMY Administration Allergies Allergies Allergy/AdvReac Type Severity Reaction Status Date / Time No Known Allergies Allergy Unverified 04/19/20 16:25 Assessment & Plan Assessment & Plan (1) Bipolar I disorder: Status: Acute Code(s): F31.9 - Bipolar disorder, unspecified Assessment and Plan: weekend coverage: no change to primary team trx plan Mirna is a 60 yo female with a history of mood lability, depression and excessive cannabis abuse admitted for exacerbation of depression, lability and emotional dysregulation. She also reports confusion at times and difficulty with task completion. Thus far, medical eval is WNL. Pt struggling with homelessness and associated losses. 1.Decrease [place] to 300 mg bid secondary to tremor. (2) Cannabis use disorder, severe, dependence: Status: Acute Code(s): F12.20 - Cannabis dependence, uncomplicated Greater than 50% of the session was spent on counseling and/or coordination of care Reason for contiued inpatient stay Substantial Risk for: other
[2021-01-13] MEDS: OLANZapine 2.5 MG TABLET PO (12:49)
[2021-01-13 18:00] VITALS: TEMP 36.9
[2021-01-13 20:36] LABS: Glucose, Whole Blood 206 mg/dL (60-115)
[2021-01-13 20:37] VITALS: BP 101/72; PULSE 105
[2021-01-13] MEDS: OLANZapine 10 MG TABLET PO (20:37)
[2021-01-13] MEDS: Atorvastatin Calcium 10 MG TABLET PO (20:37)
[2021-01-13] MEDS: Gabapentin 300 MG CAPSULE PO (20:37)
[2021-01-13] MEDS: traZODone HCL 100 MG TABLET PO (20:37)
[2021-01-14] MEDS: OLANZapine 2.5 MG TABLET PO ×2 (00:01→15:46)
[2021-01-14 06:58] LABS: Glucose, Whole Blood 161 mg/dL (60-115)
[2021-01-14 08:07] LABS: MANUAL DIFF FLAG NO
[2021-01-14 08:08] LABS: Basophils Percent Auto 0.5 % (0-2); Eosinophils Absolute Auto 0.2 X10*3/uL (0.0-0.4); Eosinophils Percent Auto 2.1 % (0-4); Hematocrit 44.6 % (37-47); Hemoglobin 14.8 g/dl (12.0-16.0); Imm Gran Abs Auto 0.03 X10*3/uL (0.00-0.03); Imm Gran Pct Auto 0.4 % (0.0-0.4); Lymphocytes Absolute Auto 1.2 X10*3/uL (1.2-4.9); Lymphocytes Percent Auto 15.6 % (20-40); Mean Corpuscular HGB Conc 33.2 g/dl (31.0-35.0); Mean Corpuscular Hemoglobin 30.6 pg (27.0-33.0); Mean Corpuscular Volume 92.1 fL (80-98); Mean Platelet Volume 10.6 fL (9.4-12.3); Monocytes Absolute Auto 0.8 X10*3/uL (0.1-1.2); Monocytes Percent Auto 10.5 % (2-11); Neutrophils Absolute Auto 5.6 X10*3/uL (2.0-8.3); Neutrophils Percent Auto 70.9 % (45-73); Platelet Count 175 X10*3/uL (160-400); Red Blood Count 4.84 X10*6/uL (4.20-5.50); Red Cell Distribution Width 13.7 % (11.0-16.0); White Blood Count 7.9 X10*3/uL (4.8-10.8)
[2021-01-14 08:17] VITALS: BP 95/51; PULSE 77
[2021-01-14 08:23] LABS: Lithium 0.55 mmol/L (0.60-1.20)
[2021-01-14 08:32] LABS: Alanine Aminotransferase 19 U/L (0-31); Alkaline Phosphatase 107 U/L (39-117); Anion Gap 15 (12-20); Aspartate Amino Transferase 15 U/L (5-31); Bilirubin Total 0.4 mg/dL (0.0-1.0); Blood Urea Nitrogen 12 mg/dL (9-16); Carbon Dioxide 28 mmol/L (22-29); Chloride 103 mmol/L (96-108); Creatinine Clr Calc Pharmacy 94.9; Estimated Glomerular Filt Rate > 60; Glucose Random 181 mg/dL (60-115); Potassium 4.5 mmol/L (3.3-5.1); Sodium 141 mmol/L (135-145); Total Protein 6.2 g/dL (6.5-8.0)
[2021-01-14 08:42] VITALS: BP 95/51; PULSE 77
[2021-01-14] MEDS: Lithium Carbonate 300 MG TABLET PO ×2 (08:42→20:29)
[2021-01-14] MEDS: FLUoxetine HCl 20 MG CAPSULE 40 MG PO (08:42)
[2021-01-14] MEDS: glipiZIDE 5 MG TABLET PO (08:42)
[2021-01-14] MEDS: Omeprazole 40 MG CAPSULE.DR PO (08:42)
[2021-01-14] MEDS: Prazosin HCL 1 MG CAPSULE PO ×2 (08:42→20:30)
[2021-01-14] MEDS: Folic Acid 1 MG TABLET PO (08:42)
[2021-01-14] MEDS: Dicyclomine HCl 10 MG CAPSULE 20 MG PO ×4 (08:42→20:29)
[2021-01-14] MEDS: lisinopriL 20 MG TABLET PO (08:42)
[2021-01-14 08:53] LABS: Thyroid Stimulating Hormone 3.77 uIU/mL (0.32-4.0)
[2021-01-14 16:58] LABS: Glucose, Whole Blood 160 mg/dL (60-115)
--- NOTE | 2021-01-14 18:18 | HO.PSYCHPN ---
Subjective Subjective Date of Service: 01/14/21 Reason For Visit: Bipolar Disorder; PTSD Subjective Notes: Conditional Voluntary Healthcare Proxy: No Guardianship: No Medical Problems Affecting Mental Status: No Interim History: Continues to have anxiety about discharge planning. Plans to interview with Bipin Alvarez. Denies SI- No, I need to be there for my grandchildren. Discussed coping skill development in survival mode vs a healthier environment. [place] decrease has tremor subsided, however, still reports tremor when anxiety is high. Medication Compliance: Yes Side effects from medications: No Attending Groups: Yes Review of Systems Reports behavioral changes Psychiatric: Reports anxiety, Reports behavioral changes, Reports depression, Reports difficulty concentrating, Reports hopelessness, Reports irritability and Reports suicidal ideation (denies SI plan or intent) Mental Status Exam Mental Status Exam Patient Appearance: Appropriate Patient Orientation: Person, Place, Time and Situation Level of Consciousness: Awake and Alert Patient Behavior: Appropriate and Cooperative Mood Description: Anxious Affect Description: Flat Patient Cognition Impaired: No Ability to Follow Directions: Good Speech Pattern: Spontaneous Speech Hallucinations: None Delusions: Not Present Thought Process: Intact Thought Content: positive for Intact and positive for Suicidal Ideation (denies SI plan or intent) Depressive Symptoms: Increased Anxiety, Crying Spells and Unhappiness Judgement: Good Diagnostics Vital Signs (24Hr): Vital Signs - 24 hr 01/13/21 20:37 01/14/21 08:17 01/14/21 08:42 Pulse Rate 105 H 77 77 Blood Pressure 101/72 95/51 L 95/51 L Body Mass Index 40.6 Labs Results: 01/14/21 07:38 01/14/21 07:38 Labs: Laboratory Results - last 48 hr 01/13/21 01/13/21 01/14/21 06:23 20:27 06:46 WBC RBC Hgb Hct MCV MCH MCHC RDW Plt Count MPV Immature Gran % (Auto) Neut % (Auto) Lymph % (Auto) [place] % (Auto) Eos % (Auto) Baso % (Auto) Lymph # (Auto) [place] # (Auto) Eos # (Auto) Baso # (Auto) Abs Immat Gran (auto) Absolute Neuts (auto) Absolute Nucleated RBC Nucleated RBC % (auto) Sodium Potassium Chloride Carbon Dioxide Anion Gap BUN Creatinine Estim Creat Clear Calc Estimated GFR POC Glucose 172 H 206 H 161 H Random Glucose Calcium Total Bilirubin AST ALT Alkaline Phosphatase Total Protein Albumin TSH [place] 01/14/21 01/14/21 01/14/21 07:38 07:38 07:38 WBC 7.9 RBC 4.84 Hgb 14.8 Hct 44.6 MCV 92.1 MCH 30.6 MCHC 33.2 RDW 13.7 Plt Count 175 MPV 10.6 Immature Gran % (Auto) 0.4 Neut % (Auto) 70.9 Lymph % (Auto) 15.6 L [place] % (Auto) 10.5 Eos % (Auto) 2.1 Baso % (Auto) 0.5 Lymph # (Auto) 1.2 [place] # (Auto) 0.8 Eos # (Auto) 0.2 Baso # (Auto) 0.0 Abs Immat Gran (auto) 0.03 Absolute Neuts (auto) 5.6 Absolute Nucleated RBC 0.000 Nucleated RBC % (auto) 0.0 Sodium 141 Potassium 4.5 Chloride 103 Carbon Dioxide 28 Anion Gap 15 BUN 12 Creatinine 0.77 Estim Creat Clear Calc 94.9 Estimated GFR > 60 POC Glucose Random Glucose 181 H D Calcium 9.0 Total Bilirubin 0.4 AST 15 ALT 19 Alkaline Phosphatase 107 Total Protein 6.2 L Albumin 4.0 TSH 3.77 [place] 0.55 L 01/14/21 16:51 WBC RBC Hgb Hct MCV MCH MCHC RDW Plt Count MPV Immature Gran % (Auto) Neut % (Auto) Lymph % (Auto) [place] % (Auto) Eos % (Auto) Baso % (Auto) Lymph # (Auto) [place] # (Auto) Eos # (Auto) Baso # (Auto) Abs Immat Gran (auto) Absolute Neuts (auto) Absolute Nucleated RBC Nucleated RBC % (auto) Sodium Potassium Chloride Carbon Dioxide Anion Gap BUN Creatinine Estim Creat Clear Calc Estimated GFR POC Glucose 160 H Random Glucose Calcium Total Bilirubin AST ALT Alkaline Phosphatase Total Protein Albumin TSH [place] Imaging Radiology Impressions: ITS Impressions Chest X-Ray 01/03/21 10:00 IMPRESSION: No acute intrathoracic disease. Head CT 01/03/21 14:52 IMPRESSION: No acute intracranial abnormality. Medications Medications Current Medications Generic Name Dose Route Start Last Admin Trade Name Freq PRN Reason Stop Dose Admin Acetaminophen 650 mg 01/01/21 23:35 01/09/21 14:09 Acetaminophen 325 Mg Tablet PO 650 mg Q6H PRN Administration Headache/Pain Mild Scale (1-3) Al Hydroxide/Mg Hydroxide 30 ml 01/01/21 23:35 Magnesium Hydrox/Alum Hydrox 30 Ml Oral.Susp PO Q6H PRN Heartburn/Nausea Atorvastatin Calcium 10 mg 01/02/21 21:00 01/13/21 20:37 Atorvastatin Calcium 10 Mg Tablet PO 10 mg BEDTIME AMY Administration Cyclobenzaprine HCl 5 mg 01/04/21 15:52 01/09/21 23:56 Cyclobenzaprine Hcl 5 Mg Tablet PO 5 mg TID PRN Administration Back Pain Dicyclomine HCl 20 mg 01/06/21 16:30 01/14/21 16:40 Dicyclomine Hcl 10 Mg Capsule PO 20 mg QIDACHS AMY Administration Fluoxetine HCl 40 mg 01/02/21 09:00 01/14/21 08:42 Fluoxetine Hcl 20 Mg Capsule PO 40 mg DAILY AMY Administration Folic Acid 1 mg 01/02/21 09:00 01/14/21 08:42 Folic Acid 1 Mg Tablet PO 1 mg DAILY AMY Administration Glipizide 5 mg 01/04/21 09:00 01/14/21 08:42 Glipizide 5 Mg Tablet PO 5 mg DAILY AMY Administration Hydroxyzine HCl 25 mg 01/01/21 23:35 01/12/21 23:21 Hydroxyzine Hcl 25 Mg Tablet PO 25 mg BEDTIME PRN Administration Anxiety Ibuprofen 800 mg 01/01/21 23:31 01/10/21 19:53 Ibuprofen 800 Mg Tablet PO 800 mg Q6H PRN Administration pain Lisinopril 20 mg 01/02/21 09:00 01/14/21 08:42 Lisinopril 20 Mg Tablet PO 20 mg DAILY AMY Administration Protocol [place] Carbonate 300 mg 01/11/21 21:00 01/14/21 08:42 [place] Carbonate 300 Mg Tablet PO 300 mg BID AMY Administration Magnesium Hydroxide 30 ml 01/01/21 23:35 Milk Of Magnesia 30 Ml Oral.Susp PO DAILY PRN Constipation Olanzapine 10 mg 01/09/21 21:00 01/13/21 20:37 Olanzapine 10 Mg Tablet PO 10 mg BEDTIME AMY Administration Olanzapine 2.5 mg 01/11/21 18:54 01/14/21 15:46 Olanzapine 2.5 Mg Tablet PO 2.5 mg TID PRN Administration agitation,anxiety Omeprazole 40 mg 01/02/21 09:00 01/14/21 08:42 Omeprazole 40 Mg Capsule. PO 40 mg DAILY AMY Administration Prazosin HCl 1 mg 01/02/21 09:00 01/14/21 08:42 Prazosin Hcl 1 Mg Capsule PO 1 mg BID AMY Administration Protocol Trazodone HCl 100 mg 01/02/21 21:00 01/13/21 20:37 Trazodone Hcl 100 Mg Tablet PO 100 mg BEDTIME AMY Administration Allergies Allergies Allergy/AdvReac Type Severity Reaction Status Date / Time No Known Allergies Allergy Unverified 04/19/20 16:25 Assessment & Plan Assessment & Plan (1) Bipolar I disorder: Status: Acute Code(s): F31.9 - Bipolar disorder, unspecified Assessment and Plan: Mirna is a 60 yo female with a history of mood lability, depression and excessive cannabis abuse admitted for exacerbation of depression, lability and emotional dysregulation. She also reports confusion at times and difficulty with task completion. Thus far, medical eval is WNL. Pt struggling with homelessness and associated losses. 1.Discharge planning. (2) Cannabis use disorder, severe, dependence: Status: Acute Code(s): F12.20 - Cannabis dependence, uncomplicated Greater than 50% of the session was spent on counseling and/or coordination of care Reason for contiued inpatient stay Substantial Risk for: rapid decompensation
[2021-01-14] MEDS: Atorvastatin Calcium 10 MG TABLET PO (20:29)
[2021-01-14] MEDS: OLANZapine 10 MG TABLET PO (20:29)
[2021-01-14 20:30] VITALS: BP 116/65; PULSE 88
[2021-01-14] MEDS: traZODone HCL 100 MG TABLET PO (20:30)
[2021-01-14 20:35] VITALS: BP 115/65; PULSE 88; TEMP 36.7
[2021-01-14] MEDS: hydrOXYzine HCL 25 MG TABLET PO (20:40)
[2021-01-15] MEDS: OLANZapine 2.5 MG TABLET PO (01:30)
[2021-01-15 06:00] VITALS: BP 119/76; PULSE 77; RESP 16; TEMP 36.3; O2SAT 94
[2021-01-15 06:26] LABS: Glucose, Whole Blood 162 mg/dL (60-115)
[2021-01-15 08:33] VITALS: BP 120/72; PULSE 87
[2021-01-15 08:43] VITALS: BP 120/72; PULSE 87
[2021-01-15] MEDS: Dicyclomine HCl 10 MG CAPSULE 20 MG PO ×2 (08:43→11:57)
[2021-01-15] MEDS: Omeprazole 40 MG CAPSULE.DR PO (08:43)
[2021-01-15] MEDS: Prazosin HCL 1 MG CAPSULE PO ×2 (08:43→21:17)
[2021-01-15] MEDS: Folic Acid 1 MG TABLET PO (08:44)
[2021-01-15] MEDS: Lithium Carbonate 300 MG TABLET PO ×2 (08:45→21:17)
[2021-01-15] MEDS: FLUoxetine HCl 20 MG CAPSULE 40 MG PO (08:45)
[2021-01-15] MEDS: lisinopriL 20 MG TABLET PO (08:45)
[2021-01-15] MEDS: glipiZIDE 5 MG TABLET PO (08:46)
[2021-01-15 16:25] VITALS: BP 118/68; PULSE 94; TEMP 36.2
[2021-01-15] MEDS: Loperamide HCl 2 MG CAPSULE PO (16:32)
[2021-01-15 16:47] LABS: Glucose, Whole Blood 109 mg/dL (60-115)
--- NOTE | 2021-01-15 16:53 | P.PNPSI_ITS ---
Subjective Subjective Date of Service: 01/15/21 Reason For Visit: Bipolar Disorder; PTSD Subjective Notes: Conditional Voluntary Healthcare Proxy: No Guardianship: No Medical Problems Affecting Mental Status: Yes (IBS flare) Interim History: Reports IBS flare. Difficult day-has decided not to go to a assisted as she will be unable to take her service dog initially due to lack of immunization/documentation. Regressed at times, ruminative. Encouraged active problem solving. Improved focus as the day progressed. Met with pt who wants to look for a motel/hotel with a weekly/monthly rate while looking for permanent housing. Reviewed a list with pt and she has begun calling. Encouraged pt reg arding her active problem solving skills. Encouraged pt to abandon blaming and tackle issues directly. Medication Compliance: Yes Side effects from medications: No Attending Groups: No Review of Systems Gastrointestinal: Reports diarrhea (IBS sx pt reports (history)) Reports behavioral changes Psychiatric: Reports anxiety, Reports behavioral changes, Reports depression, Reports difficulty concentrating, Reports hopelessness, Reports irritability, Reports anhedonia, Reports panic attacks and Reports suicidal ideation (denies SI plan or intent) Mental Status Exam Mental Status Exam Patient Appearance: Appropriate Patient Orientation: Person, Place, Time and Situation Level of Consciousness: Awake and Alert Patient Behavior: Talkative, Anxious and Crying Mood Description: Labile Affect Description: Labile Patient Cognition Impaired: No Ability to Follow Directions: Good Speech Pattern: Spontaneous Speech Memory Description: Episodic Impaired Hallucinations: None Delusions: Not Present Thought Process: Goal Oriented Thought Content: positive for Obsessional Thoughts and positive for Goal Oriented Depressive Symptoms: Increased Anxiety, Increased Irritability, Increased Fatigue and Thoughts of /Suicide (denies SI plan or intent) Abnormal Motor Activity Signs and Symptoms: Restlessness Judgement: Fair Diagnostics Vital Signs (24Hr): Vital Signs - 24 hr 01/14/21 20:30 01/14/21 20:35 01/15/21 06:00 Temperature 98.0 F 97.3 F Pulse Rate 88 88 77 Respiratory Rate 16 Blood Pressure 116/65 115/65 119/76 Pulse Oximetry 94 01/15/21 08:33 01/15/21 08:43 Temperature Pulse Rate 87 87 Respiratory Rate Blood Pressure 120/72 120/72 Pulse Oximetry Body Mass Index 40.6 Labs Results: 01/14/21 07:38 01/14/21 07:38 Labs: Laboratory Results - last 48 hr 01/13/21 01/14/21 01/14/21 20:27 06:46 07:38 WBC 7.9 RBC 4.84 Hgb 14.8 Hct 44.6 MCV 92.1 MCH 30.6 MCHC 33.2 RDW 13.7 Plt Count 175 MPV 10.6 Immature Gran % (Auto) 0.4 Neut % (Auto) 70.9 Lymph % (Auto) 15.6 L [place] % (Auto) 10.5 Eos % (Auto) 2.1 Baso % (Auto) 0.5 Lymph # (Auto) 1.2 [place] # (Auto) 0.8 Eos # (Auto) 0.2 Baso # (Auto) 0.0 Abs Immat Gran (auto) 0.03 Absolute Neuts (auto) 5.6 Absolute Nucleated RBC 0.000 Nucleated RBC % (auto) 0.0 Sodium Potassium Chloride Carbon Dioxide Anion Gap BUN Creatinine Estim Creat Clear Calc Estimated GFR POC Glucose 206 H 161 H Random Glucose Calcium Total Bilirubin AST ALT Alkaline Phosphatase Total Protein Albumin TSH [place] 01/14/21 01/14/21 01/14/21 07:38 07:38 16:51 WBC RBC Hgb Hct MCV MCH MCHC RDW Plt Count MPV Immature Gran % (Auto) Neut % (Auto) Lymph % (Auto) [place] % (Auto) Eos % (Auto) Baso % (Auto) Lymph # (Auto) [place] # (Auto) Eos # (Auto) Baso # (Auto) Abs Immat Gran (auto) Absolute Neuts (auto) Absolute Nucleated RBC Nucleated RBC % (auto) Sodium 141 Potassium 4.5 Chloride 103 Carbon Dioxide 28 Anion Gap 15 BUN 12 Creatinine 0.77 Estim Creat Clear Calc 94.9 Estimated GFR > 60 POC Glucose 160 H Random Glucose 181 H D Calcium 9.0 Total Bilirubin 0.4 AST 15 ALT 19 Alkaline Phosphatase 107 Total Protein 6.2 L Albumin 4.0 TSH 3.77 [place] 0.55 L 01/15/21 01/15/21 06:11 16:33 WBC RBC Hgb Hct MCV MCH MCHC RDW Plt Count MPV Immature Gran % (Auto) Neut % (Auto) Lymph % (Auto) [place] % (Auto) Eos % (Auto) Baso % (Auto) Lymph # (Auto) [place] # (Auto) Eos # (Auto) Baso # (Auto) Abs Immat Gran (auto) Absolute Neuts (auto) Absolute Nucleated RBC Nucleated RBC % (auto) Sodium Potassium Chloride Carbon Dioxide Anion Gap BUN Creatinine Estim Creat Clear Calc Estimated GFR POC Glucose 162 H 109 Random Glucose Calcium Total Bilirubin AST ALT Alkaline Phosphatase Total Protein Albumin TSH [place] Imaging Radiology Impressions: ITS Impressions Chest X-Ray 01/03/21 10:00 IMPRESSION: No acute intrathoracic disease. Head CT 01/03/21 14:52 IMPRESSION: No acute intracranial abnormality. Medications Medications Current Medications Generic Name Dose Route Start Last Admin Trade Name Freq PRN Reason Stop Dose Admin Acetaminophen 650 mg 01/01/21 23:35 01/09/21 14:09 Acetaminophen 325 Mg Tablet PO 650 mg Q6H PRN Administration Headache/Pain Mild Scale (1-3) Al Hydroxide/Mg Hydroxide 30 ml 01/01/21 23:35 Magnesium Hydrox/Alum Hydrox 30 Ml Oral.Susp PO Q6H PRN Heartburn/Nausea Atorvastatin Calcium 10 mg 01/02/21 21:00 01/14/21 20:29 Atorvastatin Calcium 10 Mg Tablet PO 10 mg BEDTIME AMY Administration Cyclobenzaprine HCl 5 mg 01/04/21 15:52 01/09/21 23:56 Cyclobenzaprine Hcl 5 Mg Tablet PO 5 mg TID PRN Administration Back Pain Dicyclomine HCl 20 mg 01/06/21 16:30 01/15/21 16:31 Dicyclomine Hcl 10 Mg Capsule PO Not Given QIDACHS AMY Fluoxetine HCl 40 mg 01/02/21 09:00 01/15/21 08:45 Fluoxetine Hcl 20 Mg Capsule PO 40 mg DAILY AMY Administration Folic Acid 1 mg 01/02/21 09:00 01/15/21 08:44 Folic Acid 1 Mg Tablet PO 1 mg DAILY AMY Administration Glipizide 5 mg 01/04/21 09:00 01/15/21 08:46 Glipizide 5 Mg Tablet PO 5 mg DAILY AMY Administration Hydroxyzine HCl 25 mg 01/01/21 23:35 01/14/21 20:40 Hydroxyzine Hcl 25 Mg Tablet PO 25 mg BEDTIME PRN Administration Anxiety Ibuprofen 800 mg 01/01/21 23:31 01/10/21 19:53 Ibuprofen 800 Mg Tablet PO 800 mg Q6H PRN Administration pain Lisinopril 20 mg 01/02/21 09:00 01/15/21 08:45 Lisinopril 20 Mg Tablet PO 20 mg DAILY AMY Administration Protocol [place] Carbonate 300 mg 01/11/21 21:00 01/15/21 08:45 [place] Carbonate 300 Mg Tablet PO 300 mg BID AMY Administration Magnesium Hydroxide 30 ml 01/01/21 23:35 Milk Of Magnesia 30 Ml Oral.Susp PO DAILY PRN Constipation Olanzapine 10 mg 01/09/21 21:00 01/14/21 20:29 Olanzapine 10 Mg Tablet PO 10 mg BEDTIME AMY Administration Olanzapine 2.5 mg 01/11/21 18:54 01/15/21 01:30 Olanzapine 2.5 Mg Tablet PO 2.5 mg TID PRN Administration agitation,anxiety Omeprazole 40 mg 01/02/21 09:00 01/15/21 08:43 Omeprazole 40 Mg Capsule.Dr PO 40 mg DAILY AMY Administration Prazosin HCl 1 mg 01/02/21 09:00 01/15/21 08:43 Prazosin Hcl 1 Mg Capsule PO 1 mg BID AMY Administration Protocol Trazodone HCl 100 mg 01/02/21 21:00 01/14/21 20:30 Trazodone Hcl 100 Mg Tablet PO 100 mg BEDTIME AMY Administration Allergies Allergies Allergy/AdvReac Type Severity Reaction Status Date / Time No Known Allergies Allergy Unverified 04/19/20 16:25 Assessment & Plan Assessment & Plan (1) Bipolar I disorder: Status: Acute Code(s): F31.9 - Bipolar disorder, unspecified Assessment and Plan: Mirna is a 60 yo female with a history of mood lability, depression and excessive cannabis abuse admitted for exacerbation of depression, lability and emotional dysregulation. She also reports confusion at times and difficulty with task completion. Thus far, medical eval is WNL. Pt struggling with homelessness and associated losses. 1.Discharge planning. 2. Monitor IBS sx. ?anxiety, ?[place]. Immodium x 1 (2) Cannabis use disorder, severe, dependence: Status: Acute Code(s): F12.20 - Cannabis dependence, uncomplicated Greater than 50% of the session was spent on counseling and/or coordination of care Reason for contiued inpatient stay Substantial Risk for: inability to function, rapid decompensation and med/psych decompensation
[2021-01-15] MEDS: Acetaminophen 325 MG TABLET 650 MG PO (17:04)
[2021-01-15 21:17] VITALS: BP 129/78; PULSE 96
[2021-01-15] MEDS: traZODone HCL 100 MG TABLET PO (21:17)
[2021-01-15] MEDS: OLANZapine 10 MG TABLET PO (21:17)
[2021-01-15] MEDS: Atorvastatin Calcium 10 MG TABLET PO (21:17)
[2021-01-16 06:00] VITALS: BP 110/57; PULSE 83; RESP 18; TEMP 36.6; O2SAT 93
[2021-01-16 06:06] LABS: Glucose, Whole Blood 176 mg/dL (60-115)
[2021-01-16] MEDS: Dicyclomine HCl 10 MG CAPSULE 20 MG PO ×3 (08:55→22:19)
[2021-01-16] MEDS: Lithium Carbonate 300 MG TABLET PO ×2 (08:56→22:20)
[2021-01-16] MEDS: FLUoxetine HCl 20 MG CAPSULE 40 MG PO (08:56)
[2021-01-16] MEDS: glipiZIDE 5 MG TABLET PO (08:56)
[2021-01-16] MEDS: Omeprazole 40 MG CAPSULE.DR PO (08:56)
[2021-01-16] MEDS: Folic Acid 1 MG TABLET PO (08:56)
[2021-01-16 09:01] VITALS: BP 141/96; PULSE 89
[2021-01-16] MEDS: lisinopriL 20 MG TABLET PO (09:01)
[2021-01-16] MEDS: Prazosin HCL 1 MG CAPSULE PO ×2 (09:01→22:20)
[2021-01-16] MEDS: Loperamide HCl 2 MG CAPSULE PO (14:37)
--- NOTE | 2021-01-16 16:47 | HO.PSYCHPN ---
Subjective Subjective Date of Service: 01/16/21 Reason For Visit: Bipolar Disorder; PTSD Subjective Notes: Conditional Voluntary Healthcare Proxy: No Guardianship: No Medical Problems Affecting Mental Status: Yes (IBS sx) Interim History: Actively working on housing, discharge planning. Has decided she would like to go to [facility]-awaits contact from them to interview. Reports she is non suicidal, feeling more in control. Reports a clarifying discussion with her aunt, who informed her of some family situation she had not known about, which helps her in understanding why she cannot return to aunts home at this time. Medication Compliance: Yes Side effects from medications: Yes (???IBS sx vs SE-pt reports IBS sx- I have had this for years. ) Attending Groups: Yes Review of Systems Gastrointestinal: Reports diarrhea (IBS sx.) Reports behavioral changes Psychiatric: Reports anxiety, Reports behavioral changes, Reports change in appetite, Reports mood swings (reports a decrease) and Reports suicidal ideation (denies SI plan or intent) Mental Status Exam Mental Status Exam Patient Appearance: Appropriate Patient Orientation: Person, Place, Time and Situation Level of Consciousness: Awake and Alert Patient Behavior: Appropriate, Talkative, Cooperative, Anxious and Good Eye Contact Affect Description: Constricted and Anxious Patient Cognition Impaired: No Ability to Follow Directions: Good Speech Pattern: Clear, Appropriate, Spontaneous Speech and Coherent Memory Description: Intact Hallucinations: None Delusions: Not Present Thought Process: Intact and Goal Oriented Thought Content: positive for Intact, positive for Goal Oriented and positive for Suicidal Ideation (denies SI plan or intent) Depressive Symptoms: Increased Anxiety, Diff. Making Decisions, Feelings of Worthlessness, Feelings of Guilt, Thoughts of /Suicide (denies SI plan or intent) and Low Self Esteem Judgement: Good Diagnostics Vital Signs (24Hr): Vital Signs - 24 hr 01/15/21 21:17 01/16/21 06:00 01/16/21 09:01 Temperature 98 F Pulse Rate 96 83 89 Respiratory Rate 18 Blood Pressure 129/78 110/57 L 141/96 H Pulse Oximetry 93 Body Mass Index 40.6 Labs Results: 01/14/21 07:38 01/14/21 07:38 Labs: Laboratory Results - last 48 hr 01/14/21 01/15/21 01/15/21 16:51 06:11 16:33 POC Glucose 160 H 162 H 109 01/16/21 06:02 POC Glucose 176 H Imaging Radiology Impressions: ITS Impressions Chest X-Ray 01/03/21 10:00 IMPRESSION: No acute intrathoracic disease. Head CT 01/03/21 14:52 IMPRESSION: No acute intracranial abnormality. Medications Medications Current Medications Generic Name Dose Route Start Last Admin Trade Name Freq PRN Reason Stop Dose Admin Acetaminophen 650 mg 01/01/21 23:35 01/15/21 17:04 Acetaminophen 325 Mg Tablet PO 650 mg Q6H PRN Administration Headache/Pain Mild Scale (1-3) Al Hydroxide/Mg Hydroxide 30 ml 01/01/21 23:35 Magnesium Hydrox/Alum Hydrox 30 Ml Oral.Susp PO Q6H PRN Heartburn/Nausea Atorvastatin Calcium 10 mg 01/02/21 21:00 01/15/21 21:17 Atorvastatin Calcium 10 Mg Tablet PO 10 mg BEDTIME AMY Administration Cyclobenzaprine HCl 5 mg 01/04/21 15:52 01/09/21 23:56 Cyclobenzaprine Hcl 5 Mg Tablet PO 5 mg TID PRN Administration Back Pain Dicyclomine HCl 20 mg 01/06/21 16:30 01/16/21 11:41 Dicyclomine Hcl 10 Mg Capsule PO Not Given QIDACHS AMY Fluoxetine HCl 40 mg 01/02/21 09:00 01/16/21 08:56 Fluoxetine Hcl 20 Mg Capsule PO 40 mg DAILY AMY Administration Folic Acid 1 mg 01/02/21 09:00 01/16/21 08:56 Folic Acid 1 Mg Tablet PO 1 mg DAILY AMY Administration Glipizide 5 mg 01/04/21 09:00 01/16/21 08:56 Glipizide 5 Mg Tablet PO 5 mg DAILY AMY Administration Hydroxyzine HCl 25 mg 01/01/21 23:35 01/14/21 20:40 Hydroxyzine Hcl 25 Mg Tablet PO 25 mg BEDTIME PRN Administration Anxiety Ibuprofen 800 mg 01/01/21 23:31 01/10/21 19:53 Ibuprofen 800 Mg Tablet PO 800 mg Q6H PRN Administration pain Lisinopril 20 mg 01/02/21 09:00 01/16/21 09:01 Lisinopril 20 Mg Tablet PO 20 mg DAILY AMY Administration Protocol [place] Carbonate 300 mg 01/11/21 21:00 01/16/21 08:56 [place] Carbonate 300 Mg Tablet PO 300 mg BID AMY Administration Loperamide HCl 2 mg 01/16/21 13:15 01/16/21 14:37 Loperamide Hcl 2 Mg Capsule PO 2 mg Q6H PRN Administration Diarrhea Magnesium Hydroxide 30 ml 01/01/21 23:35 Milk Of Magnesia 30 Ml Oral.Susp PO DAILY PRN Constipation Olanzapine 10 mg 01/09/21 21:00 01/15/21 21:17 Olanzapine 10 Mg Tablet PO 10 mg BEDTIME AMY Administration Olanzapine 2.5 mg 01/11/21 18:54 01/15/21 01:30 Olanzapine 2.5 Mg Tablet PO 2.5 mg TID PRN Administration agitation,anxiety Omeprazole 40 mg 01/02/21 09:00 01/16/21 08:56 Omeprazole 40 Mg Capsule.Dr PO 40 mg DAILY AMY Administration Prazosin HCl 1 mg 01/02/21 09:00 01/16/21 09:01 Prazosin Hcl 1 Mg Capsule PO 1 mg BID AMY Administration Protocol Trazodone HCl 100 mg 01/02/21 21:00 01/15/21 21:17 Trazodone Hcl 100 Mg Tablet PO 100 mg BEDTIME AMY Administration Allergies Allergies Allergy/AdvReac Type Severity Reaction Status Date / Time No Known Allergies Allergy Unverified 04/19/20 16:25 Assessment & Plan Assessment & Plan (1) Bipolar I disorder: Status: Acute Code(s): F31.9 - Bipolar disorder, unspecified Assessment and Plan: Weekend coverage: no changes to current tx plan pt marco Bradley is a 60 yo female with a history of mood lability, depression and excessive cannabis abuse admitted for exacerbation of depression, lability and emotional dysregulation. She also reports confusion at times and difficulty with task completion. Thus far, medical eval is WNL. Pt struggling with homelessness and associated losses. She is actively preparing for discharge and organizing her living situation. -No medication changes today. -Immodium prn for IBS sx. Pt has an appt next week with OP quality compliance manager for follow up of this condition. (2) Cannabis use disorder, severe, dependence: Status: Acute Code(s): F12.20 - Cannabis dependence, uncomplicated Greater than 50% of the session was spent on counseling and/or coordination of care Reason for contiued inpatient stay Substantial Risk for: rapid decompensation
[2021-01-16 22:15] VITALS: BP 112/75; PULSE 104; TEMP 36.9
[2021-01-16 22:18] LABS: Glucose, Whole Blood 215 mg/dL (60-115)
[2021-01-16 22:20] VITALS: BP 112/75; PULSE 101
[2021-01-16] MEDS: OLANZapine 10 MG TABLET PO (22:20)
[2021-01-16] MEDS: traZODone HCL 100 MG TABLET PO (22:21)
[2021-01-16] MEDS: Atorvastatin Calcium 10 MG TABLET PO (22:21)
[2021-01-16] MEDS: hydrOXYzine HCL 25 MG TABLET PO (23:56)
[2021-01-17] MEDS: OLANZapine 2.5 MG TABLET PO (00:43)
--- NOTE | 2021-01-17 01:23 | PC.NURSE ---
Erroneous assessment for PRN medication Bentyl. Patient reported effectiveness.
[2021-01-17] MEDS: Acetaminophen 325 MG TABLET 650 MG PO (02:43)
[2021-01-17 06:43] LABS: Glucose, Whole Blood 166 mg/dL (60-115)
[2021-01-17] MEDS: FLUoxetine HCl 20 MG CAPSULE 40 MG PO (09:18)
[2021-01-17] MEDS: Lithium Carbonate 300 MG TABLET PO (09:18)
[2021-01-17] MEDS: Omeprazole 40 MG CAPSULE.DR PO (09:19)
[2021-01-17] MEDS: Folic Acid 1 MG TABLET PO (09:19)
[2021-01-17] MEDS: glipiZIDE 5 MG TABLET PO (09:20)
[2021-01-17 09:24] VITALS: BP 117/56; PULSE 92
[2021-01-17] MEDS: lisinopriL 20 MG TABLET PO (09:24)
[2021-01-17 09:25] VITALS: BP 117/56; PULSE 92
[2021-01-17] MEDS: Prazosin HCL 1 MG CAPSULE PO (09:25)
[2021-01-17] MEDS: Dicyclomine HCl 10 MG CAPSULE 20 MG PO (09:25)
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
--- NOTE | 2021-01-22 11:52 | PM.EVENT ---
Event Note Date of Service: 01/22/21 Event Note: Telephone call from pt [phone]. She reports medication SE. Reports #7 Falls, Hands are jumpy and balance is off. Reports she is taking regime as directed. Pt will come to the ER for assessment of symptoms.
== END 2021-01-17 11:45 | disposition other institution (70) | DRG 885 ==
LOC: HO.ED 21:41 → HO.PM5 23:59
PROVIDERS: Physician Assistant; Psychiatry & Neurology Psychiatry; Admitting Provider Clinical Nurse Specialist Psychiatric/Mental Health, Adult; Emergency Provider Emergency Medicine; Visit Provider Clinical Nurse Specialist Psychiatric/Mental Health, Adult
DX: F31.9 Bipolar disorder, unspecified (principal); R45.851 Suicidal ideations; Z91.5 Personal history of self-harm; F12.20 Cannabis dependence, uncomplicated; Z87.820 Personal history of traumatic brain injury; Z59.0 Homelessness; Z20.822 Contact with and (suspected) exposure to COVID-19; Z79.899 Other long term (current) drug therapy
CPT/HCPCS: 36415; 70450; 71045; 80048; 80051; 80053; 80061; 80178; 82565; 82607; 82746; 82947; 83036; 84439; 84443; 84520; 85025; 87635; 93005; 99285

== ENCOUNTER 2021-02-11 16:28 | Outpatient (REF) | payer MEDICARE, SELFPAY ==
[2021-02-11 17:01] LABS: MANUAL DIFF FLAG NO
[2021-02-11 17:07] LABS: Basophils Percent Auto 0.2 % (0-2); Eosinophils Absolute Auto 0.1 X10*3/uL (0.0-0.4); Eosinophils Percent Auto 0.6 % (0-4); Hematocrit 42.9 % (37-47); Hemoglobin 13.9 g/dl (12.0-16.0); Imm Gran Abs Auto 0.07 X10*3/uL (0.00-0.03); Imm Gran Pct Auto 0.6 % (0.0-0.4); Lymphocytes Absolute Auto 1.4 X10*3/uL (1.2-4.9); Mean Corpuscular HGB Conc 32.4 g/dl (31.0-35.0); Mean Corpuscular Hemoglobin 29.9 pg (27.0-33.0); Mean Corpuscular Volume 92.3 fL (80-98); Mean Platelet Volume 9.9 fL (9.4-12.3); Monocytes Absolute Auto 0.8 X10*3/uL (0.1-1.2); Monocytes Percent Auto 6.3 % (2-11); Neutrophils Absolute Auto 10.2 X10*3/uL (2.0-8.3); Neutrophils Percent Auto 81.3 % (45-73); Platelet Count 237 X10*3/uL (160-400); Red Blood Count 4.65 X10*6/uL (4.20-5.50); Red Cell Distribution Width 14.1 % (11.0-16.0); White Blood Count 12.5 X10*3/uL (4.8-10.8)
[2021-02-11 17:19] LABS: Estimated Average Glucose 146 mg/dL; Hemoglobin A1c % 6.7 %
[2021-02-11 17:37] LABS: Alanine Aminotransferase 16 U/L (0-31); Albumin Level 4.4 g/dL (3.5-5.0); Alkaline Phosphatase 117 U/L (39-117); Anion Gap 13 (12-20); Aspartate Amino Transferase 15 U/L (5-31); Bilirubin Total 0.4 mg/dL (0.0-1.0); Blood Urea Nitrogen 11 mg/dL (9-16); Calcium 9.5 mg/dL (8.4-10.2); Carbon Dioxide 28 mmol/L (22-29); Chloride 104 mmol/L (96-108); Cholesterol 167 mg/dL; Estimated Glomerular Filt Rate > 60; Glucose Random 134 mg/dL (60-115); HDL Cholesterol 46 mg/dL; LDL Cholesterol Calculated 79 mg/dl; Potassium 4.5 mmol/L (3.3-5.1); Sodium 140 mmol/L (135-145); Total Protein 6.8 g/dL (6.5-8.0); Triglycerides 211 mg/dL
[2021-02-11 17:59] LABS: Thyroid Stimulating Hormone 2.88 uIU/mL (0.32-4.0)
== END 2021-02-11 16:29 | disposition home or self-care (01) ==
LOC: HO.LAB 16:28
PROVIDERS: Visit Provider Clinical Nurse Specialist Psychiatric/Mental Health, Adult
DX: F31.9 Bipolar disorder, unspecified (principal)
CPT/HCPCS: 36415; 80053; 80061; 83036; 84443; 85025

== ENCOUNTER 2021-06-17 16:24 | Emergency (ER) | payer MEDICARE, SELFPAY | END 2021-06-17 17:47 | disposition left against medical advice (07) | PROVIDERS: Emergency Provider Emergency Medicine | DX: R19.7 Diarrhea, unspecified (principal) ==

== ENCOUNTER 2021-06-17 19:02 | Emergency (ER) | payer MEDICARE, SELFPAY ==
--- NOTE | ~2021-06-17 | CT_ITS ---
EXAMINATION: CT ABDOMEN AND PELVIS WITH CONTRAST CLINICAL INFORMATION: Vomiting for 2 days COMPARISON: 03/27/2018 TECHNIQUE: Multidetector volumetric images were obtained from the superior aspect of the liver through the pubic symphysis following administration 85 mL of Omnipaque 350 intravenous contrast. Sagittal and coronal reformatted images were obtained on the technologist's workstation. Oral contrast: No This CT examination was performed using dose optimization techniques as appropriate, variously including the following: *Automated exposure control *Adjustment of mA and/or kV according to patient size (this includes techniques or standardized protocols for targeted exams where dose is matched to indication/reason for exam; i.e. extremities or head) *Use of iterative reconstruction technique DLP: 903 mGy-cm FINDINGS: LUNG BASES: There is curvilinear atelectasis at the left lung base. LIVER, GALLBLADDER, AND BILIARY TREE: The liver is normal in size, shape, and attenuation. No focal hepatic lesion or biliary ductal dilatation is present. Patient is status post cholecystectomy. PANCREAS: Unremarkable. SPLEEN: Unremarkable. ADRENAL GLANDS: Unremarkable. KIDNEYS AND URETERS: The kidneys are normal in size, shape, and attenuation. There are several bilateral renal calculi, left greater than right measuring up to approximately 5 mm in size. No hydronephrosis, hydroureter, or obstructing calculi seen. Multiple subcentimeter bilateral hypodense renal lesions favor cysts. Nonspecific bilateral perinephric stranding is similar to prior. BLADDER: Unremarkable. GASTROINTESTINAL TRACT: Assessment for wall thickening in some segments of the colon is limited due to luminal collapse, though no significant pericolonic stranding is seen to strongly suggest a colitis. No evidence of bowel obstruction. Per history patient is status post post appendectomy. No free fluid or free air is seen. ABDOMINAL WALL: Fat-containing supraumbilical ventral hernia is noted. LYMPH NODES: Normal. VASCULAR: Unremarkable. PELVIC VISCERA: Patient is status post hysterectomy. OSSEOUS STRUCTURES: Degenerative changes are noted in the spine. CT/CT abdomen pelvis w con IMPRESSION: No acute findings identified in the abdomen/pelvis. Several bilateral renal calculi without hydronephrosis.
[2021-06-17 19:14] VITALS: BP 173/94; BP 174/110; PULSE 93; PULSE 95; RESP 24; TEMP 37.2; O2SAT 96; O2SAT 98; BMI 42.9
[2021-06-17 19:30] LABS: Glucose, Whole Blood 206 mg/dL (60-115)
[2021-06-17 19:48] LABS: COVID-19 Test Negative (Negative)
--- NOTE | 2021-06-17 22:56 | ECG_ITS ---
Test Reason : ABD PAIN Blood Pressure : / mmHG Vent. Rate : 092 BPM Atrial Rate : 092 BPM P-R Int : 136 ms QRS Dur : 080 ms QT Int : 358 ms P-R-T Axes : 052 012 038 degrees QTc Int : 442 ms Normal sinus rhythm Possible Left atrial enlargement Borderline ECG When compared with ECG of 02-JAN-2021 00:22, No significant change was found Referred By: Tanya Martin Electronically Signed By:FATIMAH CARRASCO MD
--- NOTE | 2021-06-17 23:06 | ED_ITS ---
HPI - Abdominal Pain General Chief Complaint: Abdominal Pain Stated Complaint: abd pain Time Seen by Provider: 06/17/21 22:56 Source: patient Mode of arrival: EMS History of Present Illness HPI narrative: 60-year-old female, homeless, comes in with 2 days abdominal pain with multiple episodes of nausea, vomiting, watery diarrhea but denies any chest pain/palpitations/urinary symptoms. Patient states she does have a history of IBS as well as diabetes. Related Data Previous Rx's Medication Instructions Recorded atorvastatin 10 mg tablet 10 mg PO BEDTIME #30 tab 01/17/21 cyclobenzaprine 5 mg tablet 5 mg PO TID PRN #21 tab 01/17/21 dicyclomine 10 mg capsule 20 mg PO QIDACHS #120 cap 01/17/21 fluoxetine 20 mg capsule 40 mg PO DAILY #30 cap 01/17/21 folic acid 1 mg tablet 1 mg PO DAILY #30 tab 01/17/21 gabapentin 300 mg capsule 600 mg PO BEDTIME #15 cap 01/17/21 glipizide 5 mg tablet 5 mg PO DAILY #30 tab 01/17/21 lisinopril 20 mg tablet 20 mg PO DAILY #30 tab 01/17/21 lithium carbonate 300 mg tablet 300 mg PO BID #30 tab 01/17/21 loperamide 2 mg capsule 2 mg PO Q6H PRN #60 cap 01/17/21 olanzapine 10 mg tablet 10 mg PO BEDTIME #15 tab 01/17/21 omeprazole 40 mg capsule,delayed 40 mg PO DAILY #30 cap 01/17/21 release prazosin 1 mg capsule 1 mg PO BID #30 cap 01/17/21 trazodone 100 mg tablet 100 mg PO BEDTIME #15 tab 01/17/21 blood-glucose meter (Blood Glucose #1 ea 02/11/21 Monitoring) atorvastatin 10 mg tablet 10 mg PO BEDTIME #30 tab 03/15/21 cyclobenzaprine 5 mg tablet 5 mg PO BEDTIME PRN #30 tab 03/15/21 dicyclomine 20 mg tablet 20 mg PO QID #120 tab 03/15/21 fluoxetine 40 mg capsule (Prozac) 40 mg PO DAILY #30 cap 03/15/21 folic acid 1 mg tablet 1 mg PO DAILY #30 tab 03/15/21 gabapentin 600 mg tablet 600 mg PO BEDTIME #30 tab 03/15/21 glipizide 5 mg tablet 5 mg PO DAILY #30 tab 03/15/21 lisinopril 20 mg tablet 20 mg PO DAILY #30 tab 03/15/21 lithium carbonate 300 mg capsule 300 mg PO BID #60 cap 03/15/21 lorazepam 0.5 mg tablet 0.5 mg PO BEDTIME PRN #15 tab 03/15/21 olanzapine 10 mg tablet 10 mg PO BEDTIME #30 tab 03/15/21 olanzapine 2.5 mg tablet 2.5 mg PO BID PRN #60 tab 03/15/21 omeprazole 40 mg capsule,delayed 40 mg PO DAILY #30 cap 03/15/21 release prazosin 1 mg capsule 1 mg PO BID #60 cap 03/15/21 trazodone 100 mg tablet 100 mg PO BEDTIME PRN #30 tab 03/15/21 ondansetron HCl 4 mg tablet 4 mg PO Q8H PRN #7 tab 06/18/21 (Zofran) tamsulosin 0.4 mg capsule (Flomax) 0.4 mg PO BEDTIME 4 Days #4 cap 06/18/21 Allergies Allergy/AdvReac Type Severity Reaction Status Date / Time No Known Allergies Allergy Verified 06/17/21 19:23 Review of Systems Review of Systems Pertinent positives and negatives as stated in HPI 10 point review of systems is otherwise negative. Physical Exam Vital Signs: Vital Signs: Last Vital Signs Temp 97.9 F 06/17/21 23:14 Pulse 88 06/18/21 01:39 Resp 16 06/18/21 01:39 BP 127/81 06/18/21 01:39 Pulse Ox 94 06/18/21 01:39 Body Mass Index 42.9 VITAL SIGNS: Reviewed. GENERAL: Well developed, well nourished, in no acute distress. HEAD: Normocephalic/atraumatic EYES: PERRLA, EOMI OROPHARYNX: no oral lesions noted, posterior pharynx clear NECK: Supple, no adenopathy LUNGS: Normal breath sounds. No adventitious sounds or accessory muscle use. SpO2<96> CARDIOVASCULAR: Regular rate and rhythm without noted murmurs, no JVD or lower extremity edema. ABDOMEN: Obese, exam limited by body habitus, soft, significant tenderness on palpation over mid abdomen with distention and hypoactive bowel sounds. MUSCULOSKELETAL: No tenderness, deformities, or effusions noted on gross inspection. EXTREMITIES: No cyanosis, clubbing or edema. SKIN: Inspection of the skin reveals no rashes NEUROLOGIC: Alert and oriented x 4. Strength and sensation to light touch were grossly intact x 4. PSYCH: anxiety Course Course Course Narrative: 60-year-old female with history and clinical presentation suggestive of possible gastroenteritis, SBO, diverticulitis, IBS. Review of all investigations significant for nonobstructing renal calculi. Patient was informed of all results and will be discharged with antinausea medication, Flomax, and a referral to see Urology. MDM - Abdominal Pain Lab Data Result diagrams: 06/17/21 23:21 06/17/21 23:21 Labs: Lab Results 06/17/21 06/17/21 06/17/21 Range/Units 19:22 19:25 23:21 WBC 14.6 H (4.8-10.8) X10*3/uL RBC 4.99 (4.20-5.50) X10*6/uL Hgb 15.2 (12.0-16.0) g/dl Hct 44.5 (37.0-47.0) % MCV 89.2 (80.0-98.0) fL MCH 30.5 (27.0-33.0) pg MCHC 34.2 (31.0-35.0) g/dl RDW 14.0 (11.0-16.0) % Plt Count 230 (160-400) X10*3/uL MPV 10.0 (9.4-12.3) fL Immature Gran % (Auto) 0.5 H (0.0-0.4) % Neut % (Auto) 90.2 H (45-73) % Lymph % (Auto) 5.0 L (20-40) % Daniels % (Auto) 4.0 (2-11) % Eos % (Auto) 0.1 (0-4) % Baso % (Auto) 0.2 (0-2) % Lymph # (Auto) 0.7 L (1.2-4.9) X10*3/uL Daniels # (Auto) 0.6 (0.1-1.2) X10*3/uL Eos # (Auto) 0.0 (0.0-0.4) X10*3/uL Baso # (Auto) 0.0 (0.0-0.2) X10*3/uL Abs Immat Gran (auto) 0.08 H (0.00-0.03) X10*3/uL Absolute Neuts (auto) 13.2 H (2.0-8.3) x10*3/uL Absolute Nucleated RBC 0.000 (0.0-0.012) X10*3/uL Nucleated RBC % (auto) 0.0 (0.0-0.2) /100WBC Smear Tech's Comments VERIFIED Sodium (135-145) mmol/L Potassium (3.3-5.1) mmol/L Chloride (96-108) mmol/L Carbon Dioxide (22-29) mmol/L Anion Gap (12-20) BUN (9-16) mg/dL Creatinine (0.5-1.4) mg/dL Estim Creat Clear Calc Estimated GFR POC Glucose 206 H (60-115) mg/dL Random Glucose (60-115) mg/dL Lactic Acid (0.5-2.0) mmol/L Calcium (8.4-10.2) mg/dL Total Bilirubin (0.0-1.0) mg/dL AST (5-31) U/L ALT (0-31) U/L Alkaline Phosphatase (39-117) U/L Total Protein (6.5-8.0) g/dL Albumin (3.5-5.0) g/dL Urine Color Urine Appearance Urine pH (5.0-8.0) Ur Specific [place] (1.005-1.025) Urine Protein (NEG-TRACE) MG/DL Urine Glucose (UA) (NEG) MG/DL Urine Ketones (NEG) MG/DL Urine Blood (NEG) Urine Nitrite (NEG) Ur Leukocyte Esterase (NEG) Urine RBC (0) /HPF Urine WBC (0-4) /HPF Ur Squamous Epith Cells /LPF Urine Bacteria /LPF Hyaline Casts /LPF Urine Mucus /LPF COVID-19 (LONG) Negative (Negative) COVID-19 Clin Com See Note 06/17/21 06/17/21 06/17/21 Range/Units 23:21 23:21 23:21 WBC (4.8-10.8) X10*3/uL RBC (4.20-5.50) X10*6/uL Hgb (12.0-16.0) g/dl Hct (37.0-47.0) % MCV (80.0-98.0) fL MCH (27.0-33.0) pg MCHC (31.0-35.0) g/dl RDW (11.0-16.0) % Plt Count (160-400) X10*3/uL MPV (9.4-12.3) fL Immature Gran % (Auto) (0.0-0.4) % Neut % (Auto) (45-73) % Lymph % (Auto) (20-40) % Daniels % (Auto) (2-11) % Eos % (Auto) (0-4) % Baso % (Auto) (0-2) % Lymph # (Auto) (1.2-4.9) X10*3/uL Daniels # (Auto) (0.1-1.2) X10*3/uL Eos # (Auto) (0.0-0.4) X10*3/uL Baso # (Auto) (0.0-0.2) X10*3/uL Abs Immat Gran (auto) (0.00-0.03) X10*3/uL Absolute Neuts (auto) (2.0-8.3) x10*3/uL Absolute Nucleated RBC (0.0-0.012) X10*3/uL Nucleated RBC % (auto) (0.0-0.2) /100WBC Smear Tech's Comments Sodium 136 (135-145) mmol/L Potassium 3.9 (3.3-5.1) mmol/L Chloride 98 (96-108) mmol/L Carbon Dioxide 25 (22-29) mmol/L Anion Gap 17 (12-20) BUN 11 (9-16) mg/dL Creatinine 0.76 (0.5-1.4) mg/dL Estim Creat Clear Calc 95.9 Estimated GFR > 60 POC Glucose (60-115) mg/dL Random Glucose 207 H (60-115) mg/dL Lactic Acid 1.5 (0.5-2.0) mmol/L Calcium 9.7 (8.4-10.2) mg/dL Total Bilirubin 0.7 (0.0-1.0) mg/dL AST 26 D (5-31) U/L ALT 34 H (0-31) U/L Alkaline Phosphatase 127 H (39-117) U/L Total Protein 7.5 (6.5-8.0) g/dL Albumin 4.8 (3.5-5.0) g/dL Urine Color YELLOW Urine Appearance CLEAR Urine pH 6.0 (5.0-8.0) Ur Specific [place] >= 1.030 H (1.005-1.025) Urine Protein 2+ H (NEG-TRACE) MG/DL Urine Glucose (UA) NEG (NEG) MG/DL Urine Ketones >=80 (NEG) MG/DL Urine Blood 2+ H (NEG) Urine Nitrite NEG (NEG) Ur Leukocyte Esterase NEG (NEG) Urine RBC 5-9 H (0) /HPF Urine WBC 1-4 (0-4) /HPF Ur Squamous Epith Cells 1+ /LPF Urine Bacteria 2+ /LPF Hyaline Casts 1-4 /LPF Urine Mucus 2+ /LPF COVID-19 (LONG) (Negative) COVID-19 Clin Com ECG Data Attestation: I personally reviewed and interpreted this ECG as follows: Prior ECG tracings: available for review (01/02/21 no acute changes on comparison) Interpretation: Sinus rhythm, HR-to, no STEMI, IN/QRS/QTC are within normal limits. Discharge Plan Discharge Clinical Impression: Calculus, renal Patient Disposition: Home, Self-Care Instructions: Kidney Stones (ED), Renal Colic (ED) Additional Instructions: 1. Tylenol 1000 mg, orally, every 6 hours as needed for pain control. Do not exceed 4000 mg within 24 hours. 2. Ibuprofen 400 mg, orally with milk or food, every 6 hours as needed for pain control. You may take this medication with Tylenol for additional symptom relief. 3. It is important that you increase water intake to promote reduction in stone formation. You have been provided with a referral to Urology, the information is below. 4. Please follow-up with your primary care provider for re-evaluation and further outpatient management. Return to the ER for worsening symptoms. Prescriptions: New tamsulosin [Flomax] 0.4 mg capsule 0.4 mg PO BEDTIME 4 Days Qty: 4 RF: 0 ondansetron HCl [Zofran] 4 mg tablet 4 mg PO Q8H PRN (Reason: nausea and vomiting) Qty: 7 RF: 0 No Action loperamide 2 mg Capsule 2 mg PO Q6H PRN (Reason: Diarrhea) Qty: 60 RF: 0 atorvastatin 10 mg Tablet 10 mg PO BEDTIME Qty: 30 RF: 0 prazosin 1 mg Capsule 1 mg PO BID Qty: 30 RF: 1 lisinopril 20 mg Tablet 20 mg PO DAILY Qty: 30 RF: 0 olanzapine 10 mg Tablet 10 mg PO BEDTIME Qty: 15 RF: 1 omeprazole 40 mg Capsule,Delayed Release(Dr/Ec) 40 mg PO DAILY Qty: 30 RF: 0 trazodone 100 mg Tablet 100 mg PO BEDTIME Qty: 15 RF: 1 lithium carbonate 300 mg Tablet 300 mg PO BID Qty: 30 RF: 1 fluoxetine 20 mg Capsule 40 mg PO DAILY Qty: 30 RF: 0 dicyclomine 10 mg Capsule 20 mg PO QIDACHS Qty: 120 RF: 0 cyclobenzaprine 5 mg Tablet 5 mg PO TID PRN (Reason: Back Pain) Qty: 21 RF: 4 folic acid 1 mg Tablet 1 mg PO DAILY Qty: 30 RF: 0 glipizide 5 mg Tablet 5 mg PO DAILY Qty: 30 RF: 0 gabapentin 300 mg capsule 600 mg PO BEDTIME Qty: 15 RF: 1 (DME) blood-glucose meter [Blood Glucose Monitoring] Kit See Rx Instructions .ROUTE .MEDSUPPLY Qty: 1 RF: 0 atorvastatin 10 mg tablet 10 mg PO BEDTIME Qty: 30 RF: 0 cyclobenzaprine 5 mg tablet 5 mg PO BEDTIME PRN (Reason: spasms) Qty: 30 RF: 0 dicyclomine 20 mg tablet 20 mg PO QID Qty: 120 RF: 0 fluoxetine [Prozac] 40 mg capsule 40 mg PO DAILY Qty: 30 RF: 0 folic acid 1 mg tablet 1 mg PO DAILY Qty: 30 RF: 0 glipizide 5 mg tablet 5 mg PO DAILY Qty: 30 RF: 0 lisinopril 20 mg tablet 20 mg PO DAILY Qty: 30 RF: 0 lithium carbonate 300 mg capsule 300 mg PO BID Qty: 60 RF: 0 olanzapine 10 mg tablet 10 mg PO BEDTIME Qty: 30 RF: 0 olanzapine 2.5 mg tablet 2.5 mg PO BID PRN (Reason: agitation,lability of mood) Qty: 60 RF: 0 omeprazole 40 mg capsule,delayed release(DR/EC) 40 mg PO DAILY Qty: 30 RF: 0 prazosin 1 mg capsule 1 mg PO BID Qty: 60 RF: 0 trazodone 100 mg tablet 100 mg PO BEDTIME PRN (Reason: insomnia) Qty: 30 RF: 0 gabapentin 600 mg tablet 600 mg PO BEDTIME Qty: 30 RF: 0 lorazepam 0.5 mg tablet 0.5 mg PO BEDTIME PRN (Reason: anxiety) Qty: 15 RF: 1 Referrals: Kevin Conti MD [Physician] - 2 days (Multiple renal calculi, please evaluate and treat as indicated.) [facility] Past Medical History Source: nursing notes reviewed Medical History Anxiety Asthma Bipolar I disorder Cannabis use disorder, severe, dependence Diabetes Disc herniation GERD (gastroesophageal reflux disease) HLD (hyperlipidemia) IBS (irritable bowel syndrome) Marijuana abuse Migraine Obesity Suicidal ideation Surgical History History of appendectomy History of cholecystectomy Hx of breast reduction, elective Social History Social History Household Members: None Housing: Homeless Do you presently have visiting nurse or other home services: No Patient Tobacco Use Status: Never used Tobacco e-Cigarette/Vaping Use: Never Used Second Hand Smoke Exposure: No Substance Use Type: Marijuana Advance Directives: No Advance Directives Information Provided: No service: No Sexual orientation: did not discuss
[2021-06-17 23:14] VITALS: BP 168/110; PULSE 95; RESP 12; TEMP 36.6; O2SAT 95
--- NOTE | 2021-06-17 23:32 | PC.NURSE ---
EKG delayed as machine is in use at this time.
[2021-06-17 23:37] LABS: Basophils Percent Auto 0.2 % (0-2); Eosinophils Percent Auto 0.1 % (0-4); Hematocrit 44.5 % (37.0-47.0); Hemoglobin 15.2 g/dl (12.0-16.0); Imm Gran Abs Auto 0.08 X10*3/uL (0.00-0.03); Imm Gran Pct Auto 0.5 % (0.0-0.4); Lymphocytes Absolute Auto 0.7 X10*3/uL (1.2-4.9); MANUAL DIFF FLAG SCAN; Mean Corpuscular HGB Conc 34.2 g/dl (31.0-35.0); Mean Corpuscular Hemoglobin 30.5 pg (27.0-33.0); Mean Corpuscular Volume 89.2 fL (80.0-98.0); Monocytes Absolute Auto 0.6 X10*3/uL (0.1-1.2); Neutrophils Absolute Auto 13.2 x10*3/uL (2.0-8.3); Neutrophils Percent Auto 90.2 % (45-73); Platelet Count 230 X10*3/uL (160-400); Red Blood Count 4.99 X10*6/uL (4.20-5.50); SCAN SMEAR FLAG 1; White Blood Count 14.6 X10*3/uL (4.8-10.8)
[2021-06-17 23:38] LABS: Appearance Urine CLEAR; Color Urine YELLOW; Glucose Urine UA NEG (NEG); Leukocyte Esterase Urine NEG (NEG); Nitrite Urine NEG (NEG); Specific Gravity - Urine >= 1.030 (1.005-1.025); UACC Culture Trigger NO; Urine Blood 2+ (NEG); Urine Ketones >=80 MG/DL (NEG); Urine Protein 2+ MG/DL (NEG-TRACE)
--- NOTE | 2021-06-17 23:43 | PC.NURSE ---
EDT at bedside for EKG.
[2021-06-17 23:49] LABS: Lactic Acid 1.5 mmol/L (0.5-2.0)
[2021-06-18] LABS: Bacteria Urine 2+ /LPF; Mucus Urine 2+ /LPF; Squamous Epithelial Cell Urine 1+ /LPF
--- NOTE | 2021-06-18 00:09 | PC.NURSE ---
BCX redrawn and sent for analysis. Pt requesting medication for pain/nausea. aware.
[2021-06-18 00:15] LABS: SLIDE REVIEW VERIFIED
[2021-06-18 00:19] LABS: Alanine Aminotransferase 34 U/L (0-31); Albumin Level 4.8 g/dL (3.5-5.0); Alkaline Phosphatase 127 U/L (39-117); Anion Gap 17 (12-20); Aspartate Amino Transferase 26 U/L (5-31); Bilirubin Total 0.7 mg/dL (0.0-1.0); Blood Urea Nitrogen 11 mg/dL (9-16); Calcium 9.7 mg/dL (8.4-10.2); Carbon Dioxide 25 mmol/L (22-29); Chloride 98 mmol/L (96-108); Creatinine Clr Calc Pharmacy 95.9; Estimated Glomerular Filt Rate > 60; Glucose Random 207 mg/dL (60-115); Potassium 3.9 mmol/L (3.3-5.1); Sodium 136 mmol/L (135-145); Total Protein 7.5 g/dL (6.5-8.0)
[2021-06-18] MEDS: ondansetron HCL 4 MG/2 ML VIAL IVPUSH (00:22)
[2021-06-18] MEDS: Ketorolac Tromethamine 15 MG/ML VIAL IVPUSH (00:22)
[2021-06-18] MEDS: cefTRIAXone sodium 1 GM in 0.9 % Sodium Chloride 50 ML IV (00:22)
--- NOTE | 2021-06-18 00:24 | PC.NURSE ---
Pt medicated per MAR, aware of plan for CT.
[2021-06-18] MEDS: iohexoL 350 MG/ML 100 ML INFUS..BTL 85 ML IV (00:46)
[2021-06-18 01:39] VITALS: BP 127/81; PULSE 88; RESP 16; O2SAT 94
--- NOTE | 2021-06-18 02:30 | PC.NURSE ---
Pt fled ED without discharge paperwork. aware.
== END 2021-06-18 02:39 | disposition home or self-care (01) ==
PROVIDERS: Emergency Provider Student in an Organized Health Care Education/Training Program
DX: N20.0 Calculus of kidney (principal); F12.90 Cannabis use, unspecified, uncomplicated; Z59.00 Homelessness unspecified; Z20.822 Contact with and (suspected) exposure to COVID-19; Z79.899 Other long term (current) drug therapy
CPT/HCPCS: 36415; 74177; 80053; 81001; 82947; 83605; 85025; 87040; 87077; 87205; 87635; 93005; 96365; 96375; 99284; J0696; J1885; J2405; Q9967

== ENCOUNTER 2021-06-23 17:26 | Emergency (ER) | payer MEDICARE, SELFPAY ==
[2021-06-23 17:52] VITALS: BP 110/75; PULSE 90; RESP 18; TEMP 37.1; O2SAT 97; BMI 42.9
[2021-06-23 18:55] LABS: MANUAL DIFF FLAG NO
[2021-06-23 18:56] LABS: Basophils Percent Auto 0.4 % (0-2); Eosinophils Absolute Auto 0.1 X10*3/uL (0.0-0.4); Eosinophils Percent Auto 1.2 % (0-4); Hematocrit 42.9 % (37.0-47.0); Hemoglobin 14.1 g/dl (12.0-16.0); Imm Gran Abs Auto 0.01 X10*3/uL (0.00-0.03); Imm Gran Pct Auto 0.1 % (0.0-0.4); Lymphocytes Absolute Auto 1.4 X10*3/uL (1.2-4.9); Lymphocytes Percent Auto 18.7 % (20-40); Mean Corpuscular HGB Conc 32.9 g/dl (31.0-35.0); Mean Corpuscular Hemoglobin 30.6 pg (27.0-33.0); Mean Corpuscular Volume 93.1 fL (80.0-98.0); Mean Platelet Volume 9.9 fL (9.4-12.3); Monocytes Absolute Auto 0.6 X10*3/uL (0.1-1.2); Neutrophils Absolute Auto 5.5 x10*3/uL (2.0-8.3); Neutrophils Percent Auto 71.6 % (45-73); Platelet Count 181 X10*3/uL (160-400); Red Blood Count 4.61 X10*6/uL (4.20-5.50); White Blood Count 7.6 X10*3/uL (4.8-10.8)
[2021-06-23 19:12] LABS: Alanine Aminotransferase 25 U/L (0-31); Albumin Level 4.1 g/dL (3.5-5.0); Alkaline Phosphatase 101 U/L (39-117); Anion Gap 12 (12-20); Aspartate Amino Transferase 16 U/L (5-31); Bilirubin Total 0.3 mg/dL (0.0-1.0); Blood Urea Nitrogen 9 mg/dL (9-16); C Reactive Protein 0.39 mg/dL (< or = 0.50); Calcium 8.9 mg/dL (8.4-10.2); Carbon Dioxide 29 mmol/L (22-29); Chloride 102 mmol/L (96-108); Creatinine Clr Calc Pharmacy 83.7; Estimated Glomerular Filt Rate > 60; Glucose Random 266 mg/dL (60-115); Potassium 3.7 mmol/L (3.3-5.1); Sodium 139 mmol/L (135-145); Total Protein 6.3 g/dL (6.5-8.0)
[2021-06-23 19:19] LABS: Lactic Acid 3.4 mmol/L (0.5-2.0)
[2021-06-23 20:53] LABS: Reflex Lactate? Lactic Acid Added
--- NOTE | 2021-06-23 21:32 | ED_ITS ---
HPI - General Adult General Chief complaint: Recheck/Abnormal Lab/Rx Stated complaint: abnormal labs Time Seen by Provider: 06/23/21 19:19 Source: patient Mode of arrival: ambulatory Limitations: no limitations History of Present Illness HPI narrative: Patient comes to the emergency room after she was to return to [facility] emergency room, she received a phone call stating that her blood cultures were positive. Patient was seen here 6 days ago for kidney stones. Patient states that she does not have hematuria or dysuria, only complaining of frequency which started along with the kidney stones. Patient's labs show that she grew Gram-positive cocci, there is a note that she was told that possibly this is a contaminant. Patient denies fever chills, no flank pain. As patient was waiting in the waiting room, labs were drawn, white blood cell count today within normal limits, lactic acid is 3.4. Urinalysis pending. Patient asymptomatic Related Data Previous Rx's Medication Instructions Recorded atorvastatin 10 mg tablet 10 mg PO BEDTIME #30 tab 01/17/21 cyclobenzaprine 5 mg tablet 5 mg PO TID PRN #21 tab 01/17/21 dicyclomine 10 mg capsule 20 mg PO QIDACHS #120 cap 01/17/21 fluoxetine 20 mg capsule 40 mg PO DAILY #30 cap 01/17/21 folic acid 1 mg tablet 1 mg PO DAILY #30 tab 01/17/21 gabapentin 300 mg capsule 600 mg PO BEDTIME #15 cap 01/17/21 glipizide 5 mg tablet 5 mg PO DAILY #30 tab 01/17/21 lisinopril 20 mg tablet 20 mg PO DAILY #30 tab 01/17/21 lithium carbonate 300 mg tablet 300 mg PO BID #30 tab 01/17/21 loperamide 2 mg capsule 2 mg PO Q6H PRN #60 cap 01/17/21 olanzapine 10 mg tablet 10 mg PO BEDTIME #15 tab 01/17/21 omeprazole 40 mg capsule,delayed 40 mg PO DAILY #30 cap 01/17/21 release prazosin 1 mg capsule 1 mg PO BID #30 cap 01/17/21 trazodone 100 mg tablet 100 mg PO BEDTIME #15 tab 01/17/21 blood-glucose meter (Blood Glucose #1 ea 02/11/21 Monitoring) atorvastatin 10 mg tablet 10 mg PO BEDTIME #30 tab 03/15/21 cyclobenzaprine 5 mg tablet 5 mg PO BEDTIME PRN #30 tab 03/15/21 dicyclomine 20 mg tablet 20 mg PO QID #120 tab 03/15/21 fluoxetine 40 mg capsule (Prozac) 40 mg PO DAILY #30 cap 03/15/21 folic acid 1 mg tablet 1 mg PO DAILY #30 tab 03/15/21 gabapentin 600 mg tablet 600 mg PO BEDTIME #30 tab 03/15/21 glipizide 5 mg tablet 5 mg PO DAILY #30 tab 03/15/21 lisinopril 20 mg tablet 20 mg PO DAILY #30 tab 03/15/21 lithium carbonate 300 mg capsule 300 mg PO BID #60 cap 03/15/21 lorazepam 0.5 mg tablet 0.5 mg PO BEDTIME PRN #15 tab 03/15/21 olanzapine 10 mg tablet 10 mg PO BEDTIME #30 tab 03/15/21 olanzapine 2.5 mg tablet 2.5 mg PO BID PRN #60 tab 03/15/21 omeprazole 40 mg capsule,delayed 40 mg PO DAILY #30 cap 03/15/21 release prazosin 1 mg capsule 1 mg PO BID #60 cap 03/15/21 trazodone 100 mg tablet 100 mg PO BEDTIME PRN #30 tab 03/15/21 ondansetron HCl 4 mg tablet 4 mg PO Q8H PRN #7 tab 06/18/21 (Zofran) tamsulosin 0.4 mg capsule (Flomax) 0.4 mg PO BEDTIME 4 Days #4 cap 06/18/21 prednisone 20 mg tablet 20 mg PO DAILY 5 Days #5 tab 06/19/21 tamsulosin 0.4 mg capsule 0.4 mg PO DAILY 10 Days #10 cap 06/19/21 levofloxacin 500 mg tablet 500 mg PO DAILY #6 tab 06/23/21 Allergies Allergy/AdvReac Type Severity Reaction Status Date / Time No Known Allergies Allergy Verified 06/23/21 17:52 Review of Systems Review of Systems: Constitutional : No Weight loss, No Fever, No Chills, No Night Sweats, No Fatigue, No Malaise ENT/Mouth : No Hearing loss, No Ear Pain, No Nasal Congestion, No Sinus Pain, No Hoarseness, No sore throat, No Rhinorrhea, No Swallowing Difficulty Eyes: No Eye Pain, No Swelling, No Redness, No Foreign Body, No Discharge, No Vision Changes Cardiovascular : No Chest Pain, No SOB, No Dyspnea on Exertion, No Orthopnea, No Edema, No Palpitations Respiratory : No Cough, No Sputum, No Wheezing, No Smoke Exposure, No Dyspnea Gastrointestinal : No Nausea, No Vomiting, No Diarrhea, No Constipation, No abdominal Pain, No Hematochezia, No Melena Genitourinary : no irregular bleeding, No Dysuria, complaining of Urinary Frequency, No Hematuria, No Urinary Incontinence, No Urgency, No Flank Pain, No Urinary Flow Changes, No Hesitancy Musculoskeletal : No joint pain, No Myalgias, No Joint Swelling Skin : No Skin Lesions, No rash Neuro : No Weakness, No Numbness, No Paresthesias, No Loss of Consciousness, No Dizziness, No Headache Psych : No Anxiety/Panic, No Depression, No SI/HI/AH/VH, No Social Issues, Heme/Lymph: No Bruising, No Bleeding,No Lymphadenopathy Endocrine : No Polyuria, No Polydipsia, No Temperature Intolerance [facility] Past Medical History Medical History Anxiety Asthma Bipolar I disorder Cannabis use disorder, severe, dependence Diabetes Disc herniation GERD (gastroesophageal reflux disease) HLD (hyperlipidemia) IBS (irritable bowel syndrome) Marijuana abuse Migraine Obesity Suicidal ideation Surgical History History of appendectomy History of cholecystectomy Hx of breast reduction, elective Social History Social History Household Members: None Housing: Homeless Do you presently have visiting nurse or other home services: No Patient Tobacco Use Status: Never used Tobacco e-Cigarette/Vaping Use: Never Used Second Hand Smoke Exposure: No Substance Use Type: Marijuana Advance Directives: No Advance Directives Information Provided: Yes service: No Sexual orientation: did not discuss Physical Exam Vital Signs: Vital Signs: Last Vital Signs Temp 98.7 F 06/23/21 17:52 Pulse 90 06/23/21 17:52 Resp 18 06/23/21 17:52 BP 110/75 06/23/21 17:52 Pulse Ox 97 06/23/21 17:52 Body Mass Index 42.9 Const: Other: Appearance: Alert. Oriented X3. No acute distress. Eyes: Pupils equal, round and reactive to light. ENT: Pharynx normal. Neck: Normal inspection. Neck supple. No lymph nodes noted. No crepitus CVS: Normal heart rate and rhythm. Pulses normal. Normal S1 and S2 Respiratory: No respiratory distress. Breath sounds normal. No Wheezing. No rales Abdomen: Soft and nontender. No rigidity. No distention. good BS x4 Skin: Skin warm and dry. Normal skin color. Normal skin turgor. Extremities: No lower extremity edema. No Lacerations. No Rash Neuro: Oriented X 3. No motor deficit. No sensory deficit. Moving all extermities. No slurred speech. Course Course Course Narrative: Patient remains asymptomatic. Patient was given 2 L of normal saline and levofloxacin, patient has a mild UTI. Patient's lactic acid is now normal. Blood cultures pending. At this time, patient does not have fever, no signs of sepsis. Patient will be discharged home. Medical Decision Making Lab Data Result diagrams: 06/23/21 18:50 06/23/21 18:50 Labs: Lab Results 06/23/21 06/23/21 06/23/21 Range/Units 18:50 18:50 18:50 WBC 7.6 (4.8-10.8) X10*3/uL RBC 4.61 (4.20-5.50) X10*6/uL Hgb 14.1 (12.0-16.0) g/dl Hct 42.9 (37.0-47.0) % MCV 93.1 (80.0-98.0) fL MCH 30.6 (27.0-33.0) pg MCHC 32.9 (31.0-35.0) g/dl RDW 14.0 (11.0-16.0) % Plt Count 181 (160-400) X10*3/uL MPV 9.9 (9.4-12.3) fL Immature Gran % (Auto) 0.1 (0.0-0.4) % Neut % (Auto) 71.6 (45-73) % Lymph % (Auto) 18.7 L (20-40) % Collier % (Auto) 8.0 (2-11) % Eos % (Auto) 1.2 (0-4) % Baso % (Auto) 0.4 (0-2) % Lymph # (Auto) 1.4 (1.2-4.9) X10*3/uL Collier # (Auto) 0.6 (0.1-1.2) X10*3/uL Eos # (Auto) 0.1 (0.0-0.4) X10*3/uL Baso # (Auto) 0.0 (0.0-0.2) X10*3/uL Abs Immat Gran (auto) 0.01 (0.00-0.03) X10*3/uL Absolute Neuts (auto) 5.5 (2.0-8.3) x10*3/uL Absolute Nucleated RBC 0.000 (0.0-0.012) X10*3/uL Nucleated RBC % (auto) 0.0 (0.0-0.2) /100WBC Sodium 139 (135-145) mmol/L Potassium 3.7 (3.3-5.1) mmol/L Chloride 102 (96-108) mmol/L Carbon Dioxide 29 (22-29) mmol/L Anion Gap 12 (12-20) BUN 9 (9-16) mg/dL Creatinine 0.87 (0.5-1.4) mg/dL Estim Creat Clear Calc 83.7 Estimated GFR > 60 Random Glucose 266 H (60-115) mg/dL Lactic Acid 3.4 H* (0.5-2.0) mmol/L Calcium 8.9 D (8.4-10.2) mg/dL Total Bilirubin 0.3 (0.0-1.0) mg/dL AST 16 (5-31) U/L ALT 25 (0-31) U/L Alkaline Phosphatase 101 D (39-117) U/L C-Reactive Protein 0.39 (< or = 0.50) mg/dL Total Protein 6.3 L (6.5-8.0) g/dL Albumin 4.1 (3.5-5.0) g/dL Urine Color Urine Appearance Urine pH (5.0-8.0) Ur Specific Sibley (1.005-1.025) Urine Protein (NEG-TRACE) MG/DL Urine Glucose (UA) (NEG) MG/DL Urine Ketones (NEG) MG/DL Urine Blood (NEG) Urine Nitrite (NEG) Ur Leukocyte Esterase (NEG) Urine RBC (0) /HPF Urine WBC (0-4) /HPF Ur Squamous Epith Cells /LPF Ur Renal Epithelial Cell /LPF Urine Bacteria /LPF Urine Mucus /LPF 06/23/21 06/23/21 Range/Units 21:43 21:43 WBC (4.8-10.8) X10*3/uL RBC (4.20-5.50) X10*6/uL Hgb (12.0-16.0) g/dl Hct (37.0-47.0) % MCV (80.0-98.0) fL MCH (27.0-33.0) pg MCHC (31.0-35.0) g/dl RDW (11.0-16.0) % Plt Count (160-400) X10*3/uL MPV (9.4-12.3) fL Immature Gran % (Auto) (0.0-0.4) % Neut % (Auto) (45-73) % Lymph % (Auto) (20-40) % Collier % (Auto) (2-11) % Eos % (Auto) (0-4) % Baso % (Auto) (0-2) % Lymph # (Auto) (1.2-4.9) X10*3/uL Collier # (Auto) (0.1-1.2) X10*3/uL Eos # (Auto) (0.0-0.4) X10*3/uL Baso # (Auto) (0.0-0.2) X10*3/uL Abs Immat Gran (auto) (0.00-0.03) X10*3/uL Absolute Neuts (auto) (2.0-8.3) x10*3/uL Absolute Nucleated RBC (0.0-0.012) X10*3/uL Nucleated RBC % (auto) (0.0-0.2) /100WBC Sodium (135-145) mmol/L Potassium (3.3-5.1) mmol/L Chloride (96-108) mmol/L Carbon Dioxide (22-29) mmol/L Anion Gap (12-20) BUN (9-16) mg/dL Creatinine (0.5-1.4) mg/dL Estim Creat Clear Calc Estimated GFR Random Glucose (60-115) mg/dL Lactic Acid 1.7 (0.5-2.0) mmol/L Calcium (8.4-10.2) mg/dL Total Bilirubin (0.0-1.0) mg/dL AST (5-31) U/L ALT (0-31) U/L Alkaline Phosphatase (39-117) U/L C-Reactive Protein (< or = 0.50) mg/dL Total Protein (6.5-8.0) g/dL Albumin (3.5-5.0) g/dL Urine Color YELLOW Urine Appearance HAZY Urine pH 6.0 (5.0-8.0) Ur Specific Sibley 1.015 (1.005-1.025) Urine Protein NEG (NEG-TRACE) MG/DL Urine Glucose (UA) NEG (NEG) MG/DL Urine Ketones NEG (NEG) MG/DL Urine Blood NEG (NEG) Urine Nitrite NEG (NEG) Ur Leukocyte Esterase 2+ H (NEG) Urine RBC 1-4 (0) /HPF Urine WBC 10-14 H (0-4) /HPF Ur Squamous Epith Cells 3+ /LPF Ur Renal Epithelial Cell 1+ /LPF Urine Bacteria TRACE /LPF Urine Mucus 3+ /LPF Discharge Plan Discharge Clinical Impression: Abnormal laboratory test UTI (urinary tract infection) Qualifiers: Urinary tract infection type: site unspecified Hematuria presence: without hematuria Qualified Code(s): N39.0 - Urinary tract infection, site not specified Patient Disposition: Home, Self-Care Instructions: Urinary Tract Infection in Women (ED) Additional Instructions: Please follow-up with your primary care physician tomorrow. If you have any worsening or new symptoms, please return to the emergency room or call 911 Prescriptions: New levofloxacin 500 mg tablet 500 mg PO DAILY Qty: 6 RF: 0 No Action prednisone 20 mg tablet 20 mg PO DAILY 5 Days Qty: 5 RF: 0 tamsulosin 0.4 mg capsule 0.4 mg PO DAILY 10 Days Qty: 10 RF: 0 loperamide 2 mg Capsule 2 mg PO Q6H PRN (Reason: Diarrhea) Qty: 60 RF: 0 atorvastatin 10 mg Tablet 10 mg PO BEDTIME Qty: 30 RF: 0 prazosin 1 mg Capsule 1 mg PO BID Qty: 30 RF: 1 lisinopril 20 mg Tablet 20 mg PO DAILY Qty: 30 RF: 0 olanzapine 10 mg Tablet 10 mg PO BEDTIME Qty: 15 RF: 1 omeprazole 40 mg Capsule,Delayed Release(Dr/Ec) 40 mg PO DAILY Qty: 30 RF: 0 trazodone 100 mg Tablet 100 mg PO BEDTIME Qty: 15 RF: 1 lithium carbonate 300 mg Tablet 300 mg PO BID Qty: 30 RF: 1 fluoxetine 20 mg Capsule 40 mg PO DAILY Qty: 30 RF: 0 dicyclomine 10 mg Capsule 20 mg PO QIDACHS Qty: 120 RF: 0 cyclobenzaprine 5 mg Tablet 5 mg PO TID PRN (Reason: Back Pain) Qty: 21 RF: 4 folic acid 1 mg Tablet 1 mg PO DAILY Qty: 30 RF: 0 glipizide 5 mg Tablet 5 mg PO DAILY Qty: 30 RF: 0 gabapentin 300 mg capsule 600 mg PO BEDTIME Qty: 15 RF: 1 (DME) blood-glucose meter [Blood Glucose Monitoring] Kit See Rx Instructions .ROUTE .MEDSUPPLY Qty: 1 RF: 0 atorvastatin 10 mg tablet 10 mg PO BEDTIME Qty: 30 RF: 0 cyclobenzaprine 5 mg tablet 5 mg PO BEDTIME PRN (Reason: spasms) Qty: 30 RF: 0 dicyclomine 20 mg tablet 20 mg PO QID Qty: 120 RF: 0 fluoxetine [Prozac] 40 mg capsule 40 mg PO DAILY Qty: 30 RF: 0 folic acid 1 mg tablet 1 mg PO DAILY Qty: 30 RF: 0 glipizide 5 mg tablet 5 mg PO DAILY Qty: 30 RF: 0 lisinopril 20 mg tablet 20 mg PO DAILY Qty: 30 RF: 0 lithium carbonate 300 mg capsule 300 mg PO BID Qty: 60 RF: 0 olanzapine 10 mg tablet 10 mg PO BEDTIME Qty: 30 RF: 0 olanzapine 2.5 mg tablet 2.5 mg PO BID PRN (Reason: agitation,lability of mood) Qty: 60 RF: 0 omeprazole 40 mg capsule,delayed release(DR/EC) 40 mg PO DAILY Qty: 30 RF: 0 prazosin 1 mg capsule 1 mg PO BID Qty: 60 RF: 0 trazodone 100 mg tablet 100 mg PO BEDTIME PRN (Reason: insomnia) Qty: 30 RF: 0 gabapentin 600 mg tablet 600 mg PO BEDTIME Qty: 30 RF: 0 lorazepam 0.5 mg tablet 0.5 mg PO BEDTIME PRN (Reason: anxiety) Qty: 15 RF: 1 tamsulosin [Flomax] 0.4 mg capsule 0.4 mg PO BEDTIME 4 Days Qty: 4 RF: 0 ondansetron HCl [Zofran] 4 mg tablet 4 mg PO Q8H PRN (Reason: nausea and vomiting) Qty: 7 RF: 0
[2021-06-23] MEDS: 0.9 % Sodium Chloride 1,000 ML 999 ML IVCONT (21:47)
[2021-06-23 21:50] LABS: Appearance Urine HAZY; Color Urine YELLOW; Glucose Urine UA NEG (NEG); Leukocyte Esterase Urine 2+ (NEG); Nitrite Urine NEG (NEG); Specific Gravity - Urine 1.015 (1.005-1.025); UACC Culture Trigger YES; Urine Blood NEG (NEG); Urine Ketones NEG (NEG); Urine Protein NEG (NEG-TRACE)
[2021-06-23 21:56] LABS: Mucus Urine 3+ /LPF; Renal Epithelial Cells Urine 1+ /LPF; Squamous Epithelial Cell Urine 3+ /LPF
[2021-06-23 21:57] LABS: Bacteria Urine TRACE /LPF
[2021-06-23 21:58] LABS: Lactic Acid 1.7 mmol/L (0.5-2.0)
[2021-06-23] MEDS: levoFLOXacin 500 MG TABLET PO (22:57)
== END 2021-06-23 23:03 | disposition home or self-care (01) ==
PROVIDERS: Emergency Provider Emergency Medicine
DX: N39.0 Urinary tract infection, site not specified (principal); R79.89 Other specified abnormal findings of blood chemistry; F12.90 Cannabis use, unspecified, uncomplicated; Z79.899 Other long term (current) drug therapy
CPT/HCPCS: 36415; 80053; 81001; 83605; 85025; 86140; 87040; 87086; 96360; 99283; 99284

== ENCOUNTER 2021-08-22 12:16 | Emergency (ER) | payer MEDICARE, OTHER, SELFPAY ==
--- NOTE | ~2021-08-22 | CT_ITS ---
EXAMINATION: CT ABDOMEN AND PELVIS WITHOUT CONTRAST CLINICAL INFORMATION: Left flank pain with nausea and vomiting COMPARISON: June 18, 2021 TECHNIQUE: Multidetector volumetric imaging was performed from the superior aspect of the liver through the pubic symphysis. Sagittal and coronal reformatted images were obtained on the technologist's workstation. This CT examination was performed using dose optimization techniques as appropriate, variously including the following: *Automated exposure control *Adjustment of mA and/or kV according to patient size (this includes techniques or standardized protocols for targeted exams where dose is matched to indication/reason for exam; i.e. extremities or head) *Use of iterative reconstruction technique DLP: 929 mGy-cm FINDINGS: LUNG BASES: There is elevation of the left hemidiaphragm with some atelectasis or scarring seen in the left lower lobe. No pleural or pericardial effusion. LIVER, GALLBLADDER, AND BILIARY TREE: There is fatty infiltration of the liver without focal mass identified. No intrahepatic bile duct dilatation. Status post cholecystectomy. PANCREAS: Unremarkable. SPLEEN: Unremarkable. ADRENAL GLANDS: Unremarkable. KIDNEYS AND URETERS: There are numerous bilateral renal calculi present the largest which is in the upper pole of the left kidney measuring approximately 8 mm in diameter and lying approximately 12 cm from the posterior axillary line. No hydronephrosis. No ureteral calculi. There is bilateral perinephric stranding present. BLADDER: Unremarkable. GASTROINTESTINAL TRACT: No dilated loops of large or small bowel are evident. No free intra-abdominal abdominal gas. No free fluid. No significant pericolonic inflammatory change is seen. No abnormal fluid collections are noted. Is difficult to evaluate portions of the colon in the region of the hepatic flexure and ascending colon due to its collapsed state. Appendix is not visualized. ABDOMINAL WALL: There is a fat-containing umbilical hernia with defect width of 2 cm. LYMPH NODES: No lymphadenopathy appreciated. VASCULAR: Unremarkable. PELVIC VISCERA: Unremarkable. OSSEOUS STRUCTURES: No suspicious destructive bony lesions identified. There is significant degenerative disc disease seen at the L5-S1 level. CT/CT abdomen pelvis wo con IMPRESSION: Bilateral nephrolithiasis without evidence of obstructive uropathy. Fatty infiltration of the liver. No evidence of ileus or obstruction. Fat containing umbilical hernia.
[2021-08-22 12:29] VITALS: BP 186/114; PULSE 89; RESP 19; TEMP 36.6; O2SAT 99; BMI 42.9
[2021-08-22 12:48] LABS: MANUAL DIFF FLAG NO
[2021-08-22 12:52] LABS: Basophils Percent Auto 0.2 % (0-2); Hematocrit 48.6 % (37.0-47.0); Hemoglobin 16.1 g/dl (12.0-16.0); Imm Gran Abs Auto 0.07 X10*3/uL (0.00-0.03); Imm Gran Pct Auto 0.5 % (0.0-0.4); Lymphocytes Absolute Auto 1.1 X10*3/uL (1.2-4.9); Lymphocytes Percent Auto 7.4 % (20-40); Mean Corpuscular HGB Conc 33.1 g/dl (31.0-35.0); Mean Corpuscular Hemoglobin 30.1 pg (27.0-33.0); Mean Corpuscular Volume 90.8 fL (80.0-98.0); Mean Platelet Volume 9.9 fL (9.4-12.3); Monocytes Percent Auto 6.9 % (2-11); Neutrophils Absolute Auto 12.2 x10*3/uL (2.0-8.3); Platelet Count 262 X10*3/uL (160-400); Red Blood Count 5.35 X10*6/uL (4.20-5.50); Red Cell Distribution Width 13.6 % (11.0-16.0); White Blood Count 14.4 X10*3/uL (4.8-10.8)
[2021-08-22 13:06] LABS: COVID-19 Test Negative (Negative)
[2021-08-22 13:11] LABS: Alanine Aminotransferase 31 U/L (0-31); Albumin Level 4.8 g/dL (3.5-5.0); Alkaline Phosphatase 113 U/L (39-117); Anion Gap 15 (12-20); Aspartate Amino Transferase 29 U/L (5-31); Bilirubin Direct 0.3 mg/dL (0.0-0.5); Bilirubin Total 0.6 mg/dL (0.0-1.0); Blood Urea Nitrogen 13 mg/dL (9-16); Carbon Dioxide 27 mmol/L (22-29); Chloride 101 mmol/L (96-108); Creatinine Clr Calc Pharmacy 80.8; Estimated Glomerular Filt Rate > 60; Glucose Random 184 mg/dL (60-115); Lipase 22 U/L (8-78); Potassium 3.9 mmol/L (3.3-5.1); Sodium 139 mmol/L (135-145); Total Protein 7.7 g/dL (6.5-8.0)
[2021-08-22 13:59] VITALS: BP 173/112; PULSE 87; RESP 18; TEMP 36.8; O2SAT 97
[2021-08-22 14:13] LABS: Appearance Urine HAZY; Color Urine YELLOW; Glucose Urine UA NEG (NEG); Leukocyte Esterase Urine TRACE (NEG); Nitrite Urine NEG (NEG); PH 6.5 (5.0-8.0); UACC Culture Trigger YES; Urine Blood TRACE (NEG); Urine Ketones 5 MG/DL (NEG); Urine Protein 2+ MG/DL (NEG-TRACE)
[2021-08-22 14:29] LABS: RBC Urine 0-2 /HPF (0); Squamous Epithelial Cell Urine 1+ /LPF
[2021-08-22 14:33] VITALS: BP 161/97; PULSE 94; RESP 18; O2SAT 98
--- NOTE | 2021-08-22 14:37 | ED_ITS ---
HPI - Abdominal Pain General Chief Complaint: Abdominal Pain Stated Complaint: Kidney stones Time Seen by Provider: 08/22/21 14:00 Source: patient Mode of arrival: ambulatory Limitations: no limitations History of Present Illness HPI narrative: 61 y/o female with history of bipolar disorder, GERD, migraines, HLD, history kidney stones who presents to the ER with nausea, vomiting, diarrhea and abdominal pain and left flank pain for the last 3 days. She reports this feels like a kidney stone. She reports no diarrhea today but 3-5 episodes the last 2 days. She reports a few episodes of vomiting each day. She reports her pain starts in her left flank and wraps around her entire abdomen and settles in the lower abdomen. MD elicited complaint: abdominal pain Onset (ago): day(s) (3) Pain Consistency: constant Location: diffuse Severity: moderate Quality: stabbing Radiation: LLQ, RLQ and L flank Migration to: no migration Exacerbating factors: eating Relieving factors: nothing Associated symptoms: nausea, vomiting and diarrhea Related Data Previous Rx's Medication Instructions Recorded atorvastatin 10 mg tablet 10 mg PO BEDTIME #30 tab 01/17/21 cyclobenzaprine 5 mg tablet 5 mg PO TID PRN #21 tab 01/17/21 dicyclomine 10 mg capsule 20 mg PO QIDACHS #120 cap 01/17/21 fluoxetine 20 mg capsule 40 mg PO DAILY #30 cap 01/17/21 folic acid 1 mg tablet 1 mg PO DAILY #30 tab 01/17/21 gabapentin 300 mg capsule 600 mg PO BEDTIME #15 cap 01/17/21 glipizide 5 mg tablet 5 mg PO DAILY #30 tab 01/17/21 lisinopril 20 mg tablet 20 mg PO DAILY #30 tab 01/17/21 lithium carbonate 300 mg tablet 300 mg PO BID #30 tab 01/17/21 loperamide 2 mg capsule 2 mg PO Q6H PRN #60 cap 01/17/21 olanzapine 10 mg tablet 10 mg PO BEDTIME #15 tab 01/17/21 omeprazole 40 mg capsule,delayed 40 mg PO DAILY #30 cap 01/17/21 release prazosin 1 mg capsule 1 mg PO BID #30 cap 01/17/21 trazodone 100 mg tablet 100 mg PO BEDTIME #15 tab 01/17/21 blood-glucose meter (Blood Glucose #1 ea 02/11/21 Monitoring) atorvastatin 10 mg tablet 10 mg PO BEDTIME #30 tab 03/15/21 cyclobenzaprine 5 mg tablet 5 mg PO BEDTIME PRN #30 tab 03/15/21 dicyclomine 20 mg tablet 20 mg PO QID #120 tab 03/15/21 fluoxetine 40 mg capsule (Prozac) 40 mg PO DAILY #30 cap 03/15/21 folic acid 1 mg tablet 1 mg PO DAILY #30 tab 03/15/21 gabapentin 600 mg tablet 600 mg PO BEDTIME #30 tab 03/15/21 glipizide 5 mg tablet 5 mg PO DAILY #30 tab 03/15/21 lisinopril 20 mg tablet 20 mg PO DAILY #30 tab 03/15/21 lithium carbonate 300 mg capsule 300 mg PO BID #60 cap 03/15/21 lorazepam 0.5 mg tablet 0.5 mg PO BEDTIME PRN #15 tab 03/15/21 olanzapine 10 mg tablet 10 mg PO BEDTIME #30 tab 03/15/21 olanzapine 2.5 mg tablet 2.5 mg PO BID PRN #60 tab 03/15/21 omeprazole 40 mg capsule,delayed 40 mg PO DAILY #30 cap 03/15/21 release prazosin 1 mg capsule 1 mg PO BID #60 cap 03/15/21 trazodone 100 mg tablet 100 mg PO BEDTIME PRN #30 tab 03/15/21 ondansetron HCl 4 mg tablet 4 mg PO Q8H PRN #7 tab 06/18/21 (Zofran) tamsulosin 0.4 mg capsule (Flomax) 0.4 mg PO BEDTIME 4 Days #4 cap 06/18/21 prednisone 20 mg tablet 20 mg PO DAILY 5 Days #5 tab 06/19/21 tamsulosin 0.4 mg capsule 0.4 mg PO DAILY 10 Days #10 cap 06/19/21 levofloxacin 500 mg tablet 500 mg PO DAILY #6 tab 06/23/21 cefuroxime axetil 250 mg tablet 250 mg PO BID 7 Days #14 tab 08/22/21 ondansetron 4 mg disintegrating 4 mg PO Q8H PRN #7 tab 08/22/21 tablet phenazopyridine 100 mg tablet 100 mg PO TID PRN #6 tab 08/22/21 (Pyridium) Allergies Allergy/AdvReac Type Severity Reaction Status Date / Time No Known Allergies Allergy Verified 06/23/21 17:52 Review of Systems Review of Systems Constitutional: No Fever, No Chills ENT/Mouth: No sore throat, No Rhinorrhea, No Swallowing Difficulty Cardiovascular: No Chest Pain, No SOB Respiratory: No Cough, No Sputum, No Wheezing, No dyspnea Gastrointestinal: + Nausea, + Vomiting, + Diarrhea, + abdominal Pain, No Hematochezia, No Melena Genitourinary: No Dysuria, + Urinary Frequency, No Hematuria Musculoskeletal: No joint pain, No Myalgias Skin: No Skin Lesions, No rash Neuro: + Weakness, No Numbness, No Dizziness, No Headache Psych: + Anxiety/Panic, No Depression Heme/Lymph: No Bruising, No Lymphadenopathy Endocrine: No Polyuria, No Polydipsia Physical Exam Vital Signs: Vital Signs: Last Vital Signs Temp 98.3 F 08/22/21 13:59 Pulse 88 08/22/21 16:59 Resp 16 08/22/21 16:59 BP 126/84 08/22/21 16:59 Pulse Ox 94 08/22/21 16:59 BMI result Body Mass Index 42.9 Appearance: Alert. Oriented X3. Appears to be uncomfortable Eyes: Pupils equal, round and reactive to light. ENT: Pharynx normal. Neck: Normal inspection. Neck supple. CVS: Normal heart rate and rhythm. Pulses normal. Respiratory: No respiratory distress. Breath sounds normal. Abdomen: Obese Soft with moderate diffuse tenderness without rebound or guarding. +BS x4 Skin: Skin warm and dry. Normal skin color. Normal skin turgor. No rashes. Extremities: No lower extremity edema. Neuro: Oriented X 3. No motor deficit. No sensory deficit. Course Course Course Narrative: 61 y/o female presenting with 3 days of nausea, vomiting and diarrhea as well as diffuse abdominal pain and left flank pain. She reports similar pain to when she had kidney stones. Not tachycardic or febrile arrival. No CVA tenderness. WBC 14.4 and H/H looks hemoconcentrated from her baseline. Leukocytosis could be reactive from vomiting earlier today. Will get CT scan as well to assess for possible kidney stone vs pyelo. UA still pending. Reevaluation(s) Reevaluation #1: 4 pm - UA indicative of infection at this time. IV Rocephin ordered. Patient is feeling better after meds. If tolerating PO will plan to d/c home with po abx and antiemetics. MDM - Abdominal Pain Lab Data Result diagrams: 08/22/21 12:44 08/22/21 12:44 Labs: Lab Results 08/22/21 08/22/21 08/22/21 Range/Units 12:44 12:44 12:44 WBC 14.4 H (4.8-10.8) X10*3/uL RBC 5.35 (4.20-5.50) X10*6/uL Hgb 16.1 H (12.0-16.0) g/dl Hct 48.6 H (37.0-47.0) % MCV 90.8 (80.0-98.0) fL MCH 30.1 (27.0-33.0) pg MCHC 33.1 (31.0-35.0) g/dl RDW 13.6 (11.0-16.0) % Plt Count 262 D (160-400) X10*3/uL MPV 9.9 (9.4-12.3) fL Immature Gran % (Auto) 0.5 H (0.0-0.4) % Neut % (Auto) 85.0 H (45-73) % Lymph % (Auto) 7.4 L (20-40) % [place] % (Auto) 6.9 (2-11) % Eos % (Auto) 0.0 (0-4) % Baso % (Auto) 0.2 (0-2) % Lymph # (Auto) 1.1 L (1.2-4.9) X10*3/uL [place] # (Auto) 1.0 (0.1-1.2) X10*3/uL Eos # (Auto) 0.0 (0.0-0.4) X10*3/uL Baso # (Auto) 0.0 (0.0-0.2) X10*3/uL Abs Immat Gran (auto) 0.07 H (0.00-0.03) X10*3/uL Absolute Neuts (auto) 12.2 H (2.0-8.3) x10*3/uL Absolute Nucleated RBC 0.000 (0.0-0.012) X10*3/uL Nucleated RBC % (auto) 0.0 (0.0-0.2) /100WBC Sodium 139 (135-145) mmol/L Potassium 3.9 (3.3-5.1) mmol/L Chloride 101 (96-108) mmol/L Carbon Dioxide 27 (22-29) mmol/L Anion Gap 15 (12-20) BUN 13 (9-16) mg/dL Creatinine 0.89 (0.5-1.4) mg/dL Estim Creat Clear Calc 80.8 Estimated GFR > 60 Random Glucose 184 H (60-115) mg/dL Calcium 10.0 D (8.4-10.2) mg/dL Total Bilirubin 0.6 (0.0-1.0) mg/dL Direct Bilirubin 0.3 (0.0-0.5) mg/dL AST 29 D (5-31) U/L ALT 31 (0-31) U/L Alkaline Phosphatase 113 (39-117) U/L Total Protein 7.7 D (6.5-8.0) g/dL Albumin 4.8 (3.5-5.0) g/dL Lipase 22 (8-78) U/L Urine Color Urine Appearance Urine pH (5.0-8.0) Ur Specific [place] (1.005-1.025) Urine Protein (NEG-TRACE) MG/DL Urine Glucose (UA) (NEG) MG/DL Urine Ketones (NEG) MG/DL Urine Blood (NEG) Urine Nitrite (NEG) Ur Leukocyte Esterase (NEG) Urine RBC (0) /HPF Urine WBC (0-4) /HPF Ur Squamous Epith Cells /LPF Urine Bacteria /LPF COVID-19 (LONG) Negative (Negative) COVID-19 Clin Com See Note 08/22/21 Range/Units 14:04 WBC (4.8-10.8) X10*3/uL RBC (4.20-5.50) X10*6/uL Hgb (12.0-16.0) g/dl Hct (37.0-47.0) % MCV (80.0-98.0) fL MCH (27.0-33.0) pg MCHC (31.0-35.0) g/dl RDW (11.0-16.0) % Plt Count (160-400) X10*3/uL MPV (9.4-12.3) fL Immature Gran % (Auto) (0.0-0.4) % Neut % (Auto) (45-73) % Lymph % (Auto) (20-40) % [place] % (Auto) (2-11) % Eos % (Auto) (0-4) % Baso % (Auto) (0-2) % Lymph # (Auto) (1.2-4.9) X10*3/uL [place] # (Auto) (0.1-1.2) X10*3/uL Eos # (Auto) (0.0-0.4) X10*3/uL Baso # (Auto) (0.0-0.2) X10*3/uL Abs Immat Gran (auto) (0.00-0.03) X10*3/uL Absolute Neuts (auto) (2.0-8.3) x10*3/uL Absolute Nucleated RBC (0.0-0.012) X10*3/uL Nucleated RBC % (auto) (0.0-0.2) /100WBC Sodium (135-145) mmol/L Potassium (3.3-5.1) mmol/L Chloride (96-108) mmol/L Carbon Dioxide (22-29) mmol/L Anion Gap (12-20) BUN (9-16) mg/dL Creatinine (0.5-1.4) mg/dL Estim Creat Clear Calc Estimated GFR Random Glucose (60-115) mg/dL Calcium (8.4-10.2) mg/dL Total Bilirubin (0.0-1.0) mg/dL Direct Bilirubin (0.0-0.5) mg/dL AST (5-31) U/L ALT (0-31) U/L Alkaline Phosphatase (39-117) U/L Total Protein (6.5-8.0) g/dL Albumin (3.5-5.0) g/dL Lipase (8-78) U/L Urine Color YELLOW Urine Appearance HAZY Urine pH 6.5 (5.0-8.0) Ur Specific [place] 1.020 (1.005-1.025) Urine Protein 2+ H (NEG-TRACE) MG/DL Urine Glucose (UA) NEG (NEG) MG/DL Urine Ketones 5 (NEG) MG/DL Urine Blood TRACE (NEG) Urine Nitrite NEG (NEG) Ur Leukocyte Esterase TRACE H (NEG) Urine RBC 0-2 (0) /HPF Urine WBC 15-29 H (0-4) /HPF Ur Squamous Epith Cells 1+ /LPF Urine Bacteria NONE /LPF COVID-19 (LONG) (Negative) COVID-19 Clin Com Discharge Plan Discharge Clinical Impression: Acute UTI Patient Disposition: Home, Self-Care Instructions: Urinary Tract Infection in Women (ED) Additional Instructions: Take the prescribed antibiotics as directed - complete the entire course Take the prescribed medications as needed for pain and nausea Follow up with your doctor early next week Rest and stay hydrated, drink plenty of fluids. Recommend over the counter Imodim or Pepto Bismol as needed for diarrhea or upset stomach If you develop new or worsening symptoms call 911 or come back to the ER for further evaluation. Prescriptions: New cefuroxime axetil 250 mg tablet 250 mg PO BID 7 Days Qty: 14 RF: 0 phenazopyridine [Pyridium] 100 mg tablet 100 mg PO TID PRN (Reason: pain) Qty: 6 RF: 0 ondansetron 4 mg tablet,disintegrating 4 mg PO Q8H PRN (Reason: nausea and vomiting) Qty: 7 RF: 0 No Action prednisone 20 mg tablet 20 mg PO DAILY 5 Days Qty: 5 RF: 0 tamsulosin 0.4 mg capsule 0.4 mg PO DAILY 10 Days Qty: 10 RF: 0 loperamide 2 mg Capsule 2 mg PO Q6H PRN (Reason: Diarrhea) Qty: 60 RF: 0 atorvastatin 10 mg Tablet 10 mg PO BEDTIME Qty: 30 RF: 0 prazosin 1 mg Capsule 1 mg PO BID Qty: 30 RF: 1 lisinopril 20 mg Tablet 20 mg PO DAILY Qty: 30 RF: 0 olanzapine 10 mg Tablet 10 mg PO BEDTIME Qty: 15 RF: 1 omeprazole 40 mg Capsule,Delayed Release(Dr/Ec) 40 mg PO DAILY Qty: 30 RF: 0 trazodone 100 mg Tablet 100 mg PO BEDTIME Qty: 15 RF: 1 lithium carbonate 300 mg Tablet 300 mg PO BID Qty: 30 RF: 1 fluoxetine 20 mg Capsule 40 mg PO DAILY Qty: 30 RF: 0 dicyclomine 10 mg Capsule 20 mg PO QIDACHS Qty: 120 RF: 0 cyclobenzaprine 5 mg Tablet 5 mg PO TID PRN (Reason: Back Pain) Qty: 21 RF: 4 folic acid 1 mg Tablet 1 mg PO DAILY Qty: 30 RF: 0 glipizide 5 mg Tablet 5 mg PO DAILY Qty: 30 RF: 0 gabapentin 300 mg capsule 600 mg PO BEDTIME Qty: 15 RF: 1 (DME) blood-glucose meter [Blood Glucose Monitoring] Kit See Rx Instructions .ROUTE .MEDSUPPLY Qty: 1 RF: 0 atorvastatin 10 mg tablet 10 mg PO BEDTIME Qty: 30 RF: 0 cyclobenzaprine 5 mg tablet 5 mg PO BEDTIME PRN (Reason: spasms) Qty: 30 RF: 0 dicyclomine 20 mg tablet 20 mg PO QID Qty: 120 RF: 0 fluoxetine [Prozac] 40 mg capsule 40 mg PO DAILY Qty: 30 RF: 0 folic acid 1 mg tablet 1 mg PO DAILY Qty: 30 RF: 0 glipizide 5 mg tablet 5 mg PO DAILY Qty: 30 RF: 0 lisinopril 20 mg tablet 20 mg PO DAILY Qty: 30 RF: 0 lithium carbonate 300 mg capsule 300 mg PO BID Qty: 60 RF: 0 olanzapine 10 mg tablet 10 mg PO BEDTIME Qty: 30 RF: 0 olanzapine 2.5 mg tablet 2.5 mg PO BID PRN (Reason: agitation,lability of mood) Qty: 60 RF: 0 omeprazole 40 mg capsule,delayed release(DR/EC) 40 mg PO DAILY Qty: 30 RF: 0 prazosin 1 mg capsule 1 mg PO BID Qty: 60 RF: 0 trazodone 100 mg tablet 100 mg PO BEDTIME PRN (Reason: insomnia) Qty: 30 RF: 0 gabapentin 600 mg tablet 600 mg PO BEDTIME Qty: 30 RF: 0 lorazepam 0.5 mg tablet 0.5 mg PO BEDTIME PRN (Reason: anxiety) Qty: 15 RF: 1 tamsulosin [Flomax] 0.4 mg capsule 0.4 mg PO BEDTIME 4 Days Qty: 4 RF: 0 ondansetron HCl [Zofran] 4 mg tablet 4 mg PO Q8H PRN (Reason: nausea and vomiting) Qty: 7 RF: 0 levofloxacin 500 mg tablet 500 mg PO DAILY Qty: 6 RF: 0 PMFSH Past Medical History Medical History (Updated 08/22/21 @ 17:37 by ANNEL Hall) Anxiety Asthma Bipolar I disorder Cannabis use disorder, severe, dependence Diabetes Disc herniation GERD (gastroesophageal reflux disease) HLD (hyperlipidemia) IBS (irritable bowel syndrome) Kidney stones Marijuana abuse Migraine Obesity Suicidal ideation Surgical History History of appendectomy History of cholecystectomy Hx of breast reduction, elective Social History Social History Household Members: None Housing: Homeless Do you presently have visiting nurse or other home services: No Patient Tobacco Use Status: Never used Tobacco e-Cigarette/Vaping Use: Never Used Second Hand Smoke Exposure: No Use of substances other than those prescribed or required for medical reasons: Yes Substance Use Type: Marijuana Advance Directives: No Advance Directives Information Provided: No Patient : No service: No Sexual orientation: did not discuss
[2021-08-22] MEDS: 0.9 % Sodium Chloride 1,000 ML 999 ML IVCONT (14:38)
[2021-08-22] MEDS: Ketorolac Tromethamine 30 MG/ML VIAL IVPUSH (14:38)
[2021-08-22] MEDS: Morphine Sulfate 4 MG/ML CARTRIDGE IVPUSH ×2 (14:38→17:33)
[2021-08-22] MEDS: ondansetron HCL 4 MG/2 ML VIAL IVPUSH (14:38)
[2021-08-22 16:59] VITALS: BP 126/84; PULSE 88; RESP 16; O2SAT 94
[2021-08-22] MEDS: cefTRIAXone sodium 1 GM in 0.9 % Sodium Chloride 50 ML IV (17:01)
[2021-08-22] MEDS: Phenazopyridine HCL 100 MG TABLET PO (17:33)
== END 2021-08-22 18:19 | disposition home or self-care (01) ==
PROVIDERS: Emergency Provider Emergency Medicine
DX: N39.0 Urinary tract infection, site not specified (principal); Z20.822 Contact with and (suspected) exposure to COVID-19; R10.9 Unspecified abdominal pain; Z87.442 Personal history of urinary calculi; F12.20 Cannabis dependence, uncomplicated; E11.9 Type 2 diabetes mellitus without complications; E78.5 Hyperlipidemia, unspecified; Z79.02 Long term (current) use of antithrombotics/antiplatelets; Z79.899 Other long term (current) drug therapy
CPT/HCPCS: 74176; 80048; 80076; 81001; 83690; 85025; 87086; 87635; 96361; 96365; 96375; 96376; 99284; J0696; J1885; J2270; J2405